=== PATIENT | female | born 1960 | race Caucasian/White ===

== ENCOUNTER 2024-11-11 10:46 | Inpatient (IN) | payer OTHER ==
[~2024-11-11] VITALS: Ht 160 cm; Wt 86.0 kg
[2024-11-11] VITALS (10 sets, daily range): BP systolic 115–140; BP diastolic 59–69; PULSE 69–77; RESP 18–21; TEMP 97.6–98.7; O2SAT 93–100
[~2024-11-11 10:46] MED LIST: ALBU108A5 INH; ALBUAER3 IN; ATOR20TA50 PO; AZIT-43 PO; FAMO20TA10 PO; FLUT250M2 INH; FLUT50SP EACHNOSTRI; MET25T PO; OME20T PO; PRED20TA2 PO
--- NOTE | 2024-11-11 11:47 | ED.PDOC ---
History of Present Illness HPI Comments 64-year-old female presents with a chief complaint of SOB and cough x "few weeks" with edema to her bilateral legs. Patient states that she was seen at [facility] x 2 weeks ago and was given IV Lasix for her SOB and edema. Patient reports that since being discharged, her SOB has been worsening, especially with exe rtion. Patient is sating at 80% on room air, was placed on 4L NC and is now at 93%. Patient denies any chest pain. Chief Complaint: Shortness of Breath Time Seen by MD: 11:26 Primary Care Provider: TRENA Reviewed Notes: Nurses Notes, Medications, Allergies Allergies: Coded Allergies: NO KNOWN ALLERGIES (Unverified , 07/07/19) Home Meds Active Scripts Albuterol Sulfate (VENTOLIN MDI) 90 Mcg Ih, 90 MCG IN Q4HP PRN for 30 Days, #1 INH 1 Refill 1 PUFF Prov:OG VALDEZ MD 07/10/19 Fluticasone-Salmeterol (Advair Diskus 250/50) 1 Puff Ih, 1 PUFF INH BID PRN for 30 Days, #1 INHALER 1 Refill Prov:OG VALDEZ MD 07/10/19 Prednisone (Prednisone) 20 Mg Tab, 20 MG PO DAILY for 7 Days, #7 TAB Prov:OG VALDEZ MD 07/10/19 Metoprolol Tartrate (Lopressor) 25 Mg Tb, 25 MG PO BID for 30 Days, #60 TAB Prov:OG VALDEZ MD 07/10/19 Famotidine (PEPCID TABLET) 20 Mg Tb, 40 MG PO DAILY for 30 Days, #60 TAB Prov:OG VALDEZ MD 07/10/19 Azithromycin (Azithromycin) 250 Mg Tab, 250 MG PO DAILY for 4 Days, #4 TAB Prov:OG VALDEZ MD 07/10/19 Atorvastatin Calcium (ATORVASTATIN CALCIUM) 20 Mg Tab, 20 MG PO HS for 30 Days, #30 TAB Prov:OG VALDEZ MD 07/10/19 Reported Medications Omeprazole (Omeprazole) 20 Mg Cap, 20 MG PO DAILY, CAP 07/07/19 Information Source: Patient Mode of Arrival: Ambulatory Severity: Moderate Timing: Months Duration: Since onset Prehospital treatment: None Past Medical History PAST MEDICAL HISTORY: COPD, GERD, High Lipids, HTN Surgical History: Cholecystectomy, Tonsillectomy, Tubal Ligation 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 Family History Family History: Family hx of DM, Family hx of heart lorelei Social History Smoker: Cigarettes Alcohol: Occasionally Drugs: Denies Drug Use Lives In: Home Constitutional: denies: chills, diaphoresis, fatigue, fever, malaise, sweats, weakness, others EENTM: denies: blurred vision, double vision, ear bleeding, ear discharge, ear drainage, ear pain, ear ringing, eye pain, eye redness, hearing loss, mouth pain, mouth swelling, nasal discharge, nose bleeding, nose congestion, nose pain, photophobia, tearing, throat pain, throat swelling, voice changes, others Respiratory: reports: cough, shortness of breath, SOB with excertion; denies: hemoptysis, orthopnea, SOB at rest, stridor, wheezing, others Cardiovascular: reports: edema; denies: chest pain, dizzy spells, diaphoresis, Dyspnea on exertion, irregular heart beat, left arm pain, lightheadedness, palpitations, PND, syncope, others Gastrointestinal: denies: abdomen distended, abdominal pain, blood streaked bowels, constipated, diarrhea, dysphagia, difficulty swallowing, hematemesis, melena, nausea, poor appetite, poor fluid intake, rectal bleeding, rectal pain, vomiting, others Genitourinary: denies: abnormal vagina bleeding, burning, dyspareunia, dysuria, flank pain, frequency, hematuria, incontinence, pain, , vagina discharge, urgency, others Neurological: denies: dizziness, fainting, headache, left sided numbness, left sided weakness, numbness, paresthesia, pre-existing deficit, right sided numbness, right sided weakness, seizure, speech problems, tingling, tremors, weakness, others Musculoskeletal: denies: back pain, gout, joint pain, joint swelling, muscle pain, muscle stiffness, neck pain, others Integumetry: denies: bruises, change in color, change in hair/nails, dryness, laceration, lesions, lumps, rash, wounds, others Allergic/Immunocompromised: denies: Difficulty Healing, Frequent Infections, Hives, Itching, others Hematologic/Lymphatic: denies: anemia, blood clots, easy bleeding, easy bruising, swollen glands, others Endocrine: denies: excessive hunger, excessive sweating, excessive thirst, excessive urination, flushing, intolerance to cold, intolerance to heat, unex plained weight gain, unexplained weight loss, others Psychiatric: denies: anxiety, bipolar disorder, depression, hopeless, panic disorder, schizophrenia, sleepless, suicidal, others All Other Systems: Reviewed and Negative Physical Exam General Appearance: Moderate Distress HEENT: Normal ENT Inspection, Pharynx Normal, TMs Normal Neck: Full Range of Motion, Non-Tender, Normal, Normal Inspection Respiratory: Chest Non-Tender, Decreased Breath Sounds, No Accessory Muscle Use, No Respiratory Distress Cardiovascular: No Edema, No JVD, No Murmur, No Gallop, Normal Peripheral Pulses, Regular Rate/Rhythm Breast Exam: Deferred Gastrointestinal: No Organomegaly, Non Tender, No Pulsatile Mass, Normal Bowel Sounds, Soft Genitalia: Deferred Pelvic: Deferred Rectal: Deferred Extremities: No calf tenderness, Normal capillary refill, Pedal edema Musculoskeletal : Apperance: Normal Neurologic: Alert, teletype technician II-XII nml as Tested, Motor Weakness, Normal Affect, Normal Mood, No Sensory Deficits Cerebellar Function: Normal Reflexes: Normal Skin: Dry, Normal Color, Warm Lymphatic: No Adenopathy Was a procedure done? Was a procedure done?: No EKG EKG : Pulse Rate (adult): 68 [place]: RAD Cardiac Rhythm: NSR Block: None Hypertrophy: None ST: Normal Differential Dx Considerations may include: CHF, PE, generalized weakness, pneumonia X-Ray, Labs, Meds, VS Vital Signs Date Time Temp Pulse Resp B/P (MAP) Pulse Ox O2 Delivery O2 Flow Rate FiO2 11/11/24 12:31 125/67 11/11/24 12:18 70 18 129/74 (92) 96 11/11/24 11:52 68 11/11/24 11:00 98.7 87 18 151/39 (76) 93 98.7 11/11/24 11:00 18 93 Nasal Cannula* 4 36 Lab Test 11/11/24 11:14 Range/Units White Blood Count 7.6 4.4-10.8 10^3/uL Red Blood Count 4.68 4.0-5.20 10^6/uL Hemoglobin 15.5 12.2-16.2 g/dL Hematocrit 44.9 36.0-46.0 % Mean Corpuscular Volume 96.0 80.0-100.0 fL Mean Corpuscular Hemoglobin 33.2 H 28.0-32.0 pg Mean Corpuscular Hemoglobin Concent 34.5 32.0-36.0 g/dL Red Cell Distribution Width 13.8 11.8-14.3 % Platelet Count 234 140-450 10^3/uL Mean Platelet Volume 8.0 6.9-10.8 fL Neutrophils (%) (Auto) 61.5 37.0-80.0 % Lymphocytes (%) (Auto) 18.1 10.0-50.0 % Monocytes (%) (Auto) 9.4 0.0-12.0 % Eosinophils (%) (Auto) 9.1 H 0.0-7.0 % Basophils (%) (Auto) 1.9 0.0-2.0 % Neutrophils # (Auto) 4.7 1.6-8.6 10 ^3/uL Lymphocytes # (Auto) 1.4 0.4-5.4 10 ^3/uL Monocytes # (Auto) 0.7 0-1.3 10 ^3/uL Eosinophils # (Auto) 0.7 0-0.8 10 ^3/uL Basophils # (Auto) 0.1 0-0.2 10 ^3/uL Nucleated Red Blood Cells 0.1 % Sodium Level 140 136-145 mmol/L Potassium Level 4.1 3.5-5.1 mmol/L Chloride Level 103 98-107 mmol/L Carbon Dioxide Level 29 20-31 mmol/L Anion Gap 8 5-15 Blood Urea Nitrogen 9 9-23 mg/dL Creatinine 0.78 0.550-1.02 mg/dL Glomerular Filtration Rate Calc 84 >90 mL/min BUN/Creatinine Ratio 11.5 10.0-20.0 Serum Glucose 167 H 74-106 mg/dL Calcium Level 10.1 8.7-10.4 mg/dL Troponin I High Sensitivity < 3 L </=34 ng/L B-Type Natriuretic Peptide 41.62 0-100 pg/mL Current Medications Medications (Trade) Dose Ordered Sig/Mayela Route Start Time Stop Time Status Last Admin Furosemide (Lasix Injection) 40 mg ONCE ONCE IV 11/11/24 11:45 11/11/24 11:46 DC 11/11/24 12:31 IV Hep-Lock was established The patient was given Lasix 40 mg IV push The chest x-ray shows: IMPRESSION: 1. No acute intrathoracic process. 2. Thoracic spondylosis and scoliosis. The BNP is within normal limits The troponin level is negative The patient is hyperglycemic at 167 The CBC is within normal range. The patient is being admitted at this time The patient will be continued on 4 L nasal cannula of oxygen. A cardiology consult will be obtained. Images Reviewed?: Images reviewed and evaluated by me Time of 1ST Reevaluation: 11:56 Reevaluation 1ST: Improved Patient Education/Counseling: Diagnosis, Treatment, Prognosis Family Education/Counseling: No Family Present Departure 1 Departure Time of Disposition: 12:36 Impression: Primary Impression: Acute respiratory failure Qualified Codes: J96.01 - Acute respiratory failure with hypoxia Additional Impressions: Pedal edema Diastolic heart failure Qualified Codes: I50.33 - Acute on chronic diastolic (congestive) heart failure Disposition: ADMITTED INPATIENT Admit to: [facility] Condition: Fair Critical Care Note Critical Care Time?: Yes (45 min-critical care time only) Stability Stability form required: Yes Unstable for transfer: Telemetry monitoring (Telemetry monitoring required), ED Physician Assesment (Clinical assesment) Heart Score Heart Score: Heart Score Response (Comments) Value History N/A 0 EKG N/A 0 Age N/A 0 Risk Factors N/A 0 Troponin N/A 0 Total 0 I personally scribed for CARLOS SMITH MD ([email or web address]) on 11/11/24 at 11:47. Electronically submitted by Judah Phillips ([email or web address]). I personally scribed for CARLSO SMITH MD ([email or web address]) on 11/11/24 at 11:52. Electronically submitted by Judah Phillips ([email or web address]). CARLOS SMITH MD Nov 11, 2024 11:47
[2024-11-11 11:57] LABS: Basophils # (auto) 0.1 10 ^3/uL (0-0.2); Basophils % (auto) 1.9 % (0.0-2.0); Eosinophils # (auto) 0.7 10 ^3/uL (0-0.8); Eosinophils % (auto) 9.1 % (0.0-7.0); Hematocrit 44.9 % (36.0-46.0); Hemoglobin 15.5 g/dL (12.2-16.2); Lymphocytes # (auto) 1.4 10 ^3/uL (0.4-5.4); Lymphocytes % (auto) 18.1 % (10.0-50.0); Mean Corpuscular Hemoglobin 33.2 pg (28.0-32.0); Mean Corpuscular Hgb Conc. 34.5 g/dL (32.0-36.0); Monocytes # (auto) 0.7 10 ^3/uL (0-1.3); Monocytes % (auto) 9.4 % (0.0-12.0); Neutrophils # (auto) 4.7 10 ^3/uL (1.6-8.6); Neutrophils % (auto) 61.5 % (37.0-80.0); Nucleated Red Blood Cells % 0.1 %; Platelet Count (auto) 234 10^3/uL (140-450); Red Blood Cells 4.68 10^6/uL (4.0-5.20); Red Cell Distribution Width 13.8 % (11.8-14.3); White Blood Cell 7.6 10^3/uL (4.4-10.8)
[2024-11-11 12:04] LABS: Chloride 103 mmol/L (98-107); Potassium 4.1 mmol/L (3.5-5.1); Sodium 140 mmol/L (136-145)
[2024-11-11 12:05] LABS: Anion Gap 8 (5-15); Calcium 10.1 mg/dL (8.7-10.4); Carbon Dioxide 29 mmol/L (20-31)
[2024-11-11 12:10] LABS: BUN/Creatinine Ratio 11.5 (10.0-20.0)
[2024-11-11 12:13] LABS: Blood Urea Nitrogen 9 mg/dL (9-23); Glucose 167 mg/dL (74-106)
--- NOTE | 2024-11-11 12:19 | ECG ---
[facility] Test Date: 2024-11-11 Test Time: 11:10:09 Pat Name: BRENDAN SERNA Department: ER Room: 0298T Gender: F Gore Stitcher: GP : 1960 Requested By: CARLOS SMITH Order Number: [id number] Reading MD: Dequan Donaldson Measurements Intervals [place] Rate: 68 P: 50 MT: 165 QRS: 86 QRSD: 89 T: 77 QT: 398 QTc: 424 Interpretive Statements Sinus rhythm Borderline right axis deviation Nonspecific T abnrm, anterolateral leads Baseline wander in lead(s) III Electronically Signed On 11-12-2024 14:58:43 PDT by Dequan Donaldson Please click the below link to view image of tracing.
--- NOTE | 2024-11-11 12:26 | DVH ---
EXAM: XY CHEST TWO VIEWS ROUTINE HISTORY: sob COMPARISON: None TECHNIQUE: Frontal and lateral views of the chest were performed. FINDINGS: No pneumothorax, pulmonary edema, pleural effusions, or consolidative infiltrates. The heart is not enlarged. The aortic arch is calcific. No fractures are identified about the bony thorax. There is mo derate thoracic degenerative disc disease. There is mild thoracic levoscoliosis. IMPRESSION: 1. No acute intrathoracic process. 2. Thoracic spondylosis and scoliosis.
[2024-11-11] MEDS: FUROSEMIDE 40 MG/4 ML VIAL IV ONE (12:31)
[2024-11-11] MEDS ORDERED: MORPHINE SULFATE 4 MG/ML SYR/VIAL IV PRN ×2 (13:30→15:15)
[2024-11-11] MEDS ORDERED: MORPHINE SULFATE INJ 2 MG/ml SYRG IV PRN (13:30)
[2024-11-11] MEDS ORDERED: NITROGLYCERIN 0.4 MG SL TAB SL PRN (13:30)
[2024-11-11 13:43] LABS: Urine Bacteria None Seen /hpf (None Seen)
[2024-11-11 13:52] LABS: Urine Blood Negative /uL (Negative); Urine Clarity Clear (Clear); Urine Color Colorless (Yellow); Urine Protein, UAD Negative (Negative); Urine Specific Gravity 1.006 (1.001-1.035); Urine Squamous Epithelial Cell FEW /hpf (<5); Urine Urobilinogen Normal (Negative); Urine WBC 2 /HPF (0-5)
[2024-11-11] MEDS: IPRATROPIUM BROM 0.5 MG/2.5ML INH SOL NEB PRN (15:06)
[2024-11-11] MEDS: ALBUTEROL SULF 2.5 MG/0.5ML(0.5%) NEB SOLN NEB PRN (15:06)
--- NOTE | 2024-11-11 16:20 | DVHINCON2 ---
Date of service: Nov 11, 2024 Referring Physician Carolin Gomez NP Reason for Consultation Acute hypoxic respiratory failure and COPD exacerbation History of Present Illness A 64-year-old woman with past medical history of COPD, hypertension, hyperlipidemia and GERD who presents to ED today with a chief complaint of shortness of breath and cough x "few weeks" with bilateral leg edema. She reports being seen at [facility] 2 weeks ago and was given IV Lasix for her SOB and edema. Patient reports that since being discharged, shortness of breath has been worsening, especially with exertion. No chest pain or other acute complaints. Patient was noted to have sats at 80% on room air, was placed on 4L NC and improved to 93%. Patient was admitted for further care, and pulmonary consultat ion is requested for evaluation and management of acute hypoxic respiratory failure and COPD exacerbation. Review of Systems: 14-point review of systems negative unless otherwise noted above. Past Medical History: COPD, hypertension, hyperlipidemia, GERD, ectopic . Past Surgical History: Cholecystectomy, Tonsillectomy, Tubal Ligation Medications: Reviewed. Allergies: No known drug allergies. Family History: DM and heart disease. Social History: Smoker. Smokes cigarettes Occasional alcohol use. No illicit drug use. Allergies: Coded Allergies: NO KNOWN ALLERGIES (Unverified , 07/07/19) Home Meds Active Scripts Methylprednisolone (Medrol Dosepak) 4 Mg [place], 4 MG PO UD, #21 TAB UAD Prov:KISHAN LINDSEY 11/14/24 Furosemide (Lasix) 20 Mg Tb, 1 TAB PO DAILY for 30 Days, #30 TAB 1 Refill Prov:KISHAN LINDSEY 11/14/24 Levofloxacin Hemihydrate (LEVOFLOXACIN) 500 Mg Tab, 1 TAB PO DAILY, #7 TAB Prov:KISHAN LINDSEY 11/14/24 Albuterol Sulfate (Albuterol Sulfate Hfa) 108 Mcg/Act Aer, 2 PUFF INH Q4-6HR PRN for 16 Days, #8.5 AER Prov:KISHAN LINDSEY 11/14/24 Reported Medications Fluticasone Propionate (Nasal) (Fluticasone Propionate) 50 Mcg/Act Spr, 1 SPRAY EACHNOSTRI DAILY for 30 Days, #16 11/12/24 Aspirin (Aspir-81) 81 Mg Tab, 1 TAB PO DAILY, #30 TAB 5 Refills 11/11/24 Atorvastatin Calcium (ATORVASTATIN CALCIUM) 40 Mg Tab, 1 TAB PO DAILY, #30 TAB 5 Refills 11/11/24 Pantoprazole Sodium Sesquihydr (Protonix) 40 Mg Tab, 40 MG PO DAILY, #30 TAB 11/11/24 Metoprolol Succinate (Metoprolol Succinate Er) 25 Mg Tab, 25 MG PO DAILY for 30 Days, MG 11/11/24 Amlodipine Besylate (Amlodipine Besylate) 5 Mg Tab, 10 MG PO DAILY for 30 Days, MG 11/11/24 Losartan Potassium (Losartan Potassium) 50 Mg Tab, 1 TAB PO DAILY, #30 TAB 5 Refills 11/11/24 Discontinued Reported Medications Omeprazole (Omeprazole) 20 Mg Cap, 20 MG PO DAILY, CAP 07/07/19 Current Medications Current Medications Medications (Trade) Dose Ordered Sig/Mayela Route PRN Reason Start Time Stop Time Status Last Admin Acetaminophen/ Hydrocodone Bitart ([place] 5/325MG Tab) 1 tab Q4HP PRN PO MODERATE PAIN (4-6 PAIN SCALE) 11/11/24 13:30 Enoxaparin Sodium (Lovenox) 40 mg DAILY SC 11/12/24 10:00 Acetaminophen (Tylenol Tablet) 650 mg Q6HP PRN PO PAIN SCALE 1-3 OR TEMP>100.4 11/11/24 13:30 Morphine Sulfate 2 mg Q4HPRN PRN IV SEVERE PAIN (7-10 PAIN SCALE) 11/11/24 13:30 Nitroglycerin (Ntrostat Sublingual) 0.4 mg Q5MINP PRN SL FOR CHEST PAIN 11/11/24 13:30 Morphine Sulfate 2 mg Q30M PRN IV FOR CHEST PAIN 11/11/24 13:30 Atorvastatin Calcium (Lipitor) 20 mg HS PO 11/11/24 22:00 Metoprolol Tartrate (Lopressor Tablet) 25 mg BID PO 11/11/24 22:00 Albuterol (Ventolin Medneb) 2.5 mg Q6HP PRN NEB SHORTNESS OF BREATH 11/11/24 13:30 11/11/24 15:06 Ipratropium [place] (Atrovent Medneb) 0.5 mg Q6HP PRN NEB SHORTNESS OF BREATH 11/11/24 13:30 11/11/24 15:06 Furosemide (Lasix Injection) 40 mg BID IV 11/11/24 22:00 11/11/24 13:30 DC Morphine Sulfate 2 mg Q4HPRN PRN IV SEVERE PAIN (7-10 PAIN SCALE) 11/11/24 15:15 Vital Signs Vital Signs Date Time Temp Pulse Resp B/P (MAP) Pulse Ox O2 Delivery O2 Flow Rate FiO2 11/11/24 15:20 98.1 74 16 103/64 (77) 95 98.1 11/11/24 15:20 2.0 28 11/11/24 15:06 Nasal Cannula Physical Exam Gen.: Patient lying in bed in no apparent distress. On supplemental oxygen. Head: Normocephalic, atraumatic. Eyes: EOMI/PERRLA. Ears: Normal hearing. Normal anatomy. Neck/trachea: Trachea midline, supple. Nose: Normal external anatomy. Mouth: Moist mucous membranes. Chest: Decreased air entry bilaterally. Wheezing present. No rhonchi. Cardiovascular: Positive S1, positive S2. Regular rate and rhythm. Abdomen: Positive bowel sounds in all 4 quadrants. Soft, non-tender, non- distended. : Deferred. Rectal: Deferred. Skin: Warm, dry. Intact. Extremities: 2+ radial pulses bilaterally. No lower extremity edema. Neuro: Awake, alert, oriented x3. No gross motor or sensory deficits. Cranial n erves II through XII intact. Gait not assessed. Labs/Diagnostic Data Labs Test 11/11/24 11:42 11/11/24 11:14 Range/Units Urine Color Colorless Yellow Urine Clarity Clear Clear Urine pH 7.0 5.0-9.0 Urine Specific [place] 1.006 1.001-1.035 Urine Protein Negative Negative Urine Ketones Negative Negative Urine Blood Negative Negative /uL Urine Nitrite Negative Negative Urine Bilirubin Negative Negative Urine Urobilinogen Normal Negative mg/dL Urine Leukocyte Esterase Negative Negative /uL Urine RBC <1 0 - 4 /hpf Urine Microscopic WBC 2 0-5 /HPF Urine Squamous Epithelial Cells Few <5 /hpf Urine Bacteria None seen None Seen /hpf Urine Glucose Normal Normal mg/dL White Blood Count 7.6 4.4-10.8 10^3/uL Red Blood Count 4.68 4.0-5.20 10^6/uL Hemoglobin 15.5 12.2-16.2 g/dL Hematocrit 44.9 36.0-46.0 % Mean Corpuscular Volume 96.0 80.0-100.0 fL Mean Corpuscular Hemoglobin 33.2 H 28.0-32.0 pg Mean Corpuscular Hemoglobin Concent 34.5 32.0-36.0 g/dL Red Cell Distribution Width 13.8 11.8-14.3 % Platelet Count 234 140-450 10^3/uL Mean Platelet Volume 8.0 6.9-10.8 fL Neutrophils (%) (Auto) 61.5 37.0-80.0 % Lymphocytes (%) (Auto) 18.1 10.0-50.0 % Monocytes (%) (Auto) 9.4 0.0-12.0 % Eosinophils (%) (Auto) 9.1 H 0.0-7.0 % Basophils (%) (Auto) 1.9 0.0-2.0 % Neutrophils # (Auto) 4.7 1.6-8.6 10 ^3/uL Lymphocytes # (Auto) 1.4 0.4-5.4 10 ^3/uL Monocytes # (Auto) 0.7 0-1.3 10 ^3/uL Eosinophils # (Auto) 0.7 0-0.8 10 ^3/uL Basophils # (Auto) 0.1 0-0.2 10 ^3/uL Nucleated Red Blood Cells 0.1 % Sodium Level 140 136-145 mmol/L Potassium Level 4.1 3.5-5.1 mmol/L Chloride Level 103 98-107 mmol/L Carbon Dioxide Level 29 20-31 mmol/L Anion Gap 8 5-15 Blood Urea Nitrogen 9 9-23 mg/dL Creatinine 0.78 0.550-1.02 mg/dL Glomerular Filtration Rate Calc 84 >90 mL/min BUN/Creatinine Ratio 11.5 10.0-20.0 Serum Glucose 167 H 74-106 mg/dL Calcium Level 10.1 8.7-10.4 mg/dL Troponin I High Sensitivity < 3 L </=34 ng/L B-Type Natriuretic Peptide 41.62 0-100 pg/mL Assessment Impression: Acute hypoxic respiratory failure Acute exacerbation of COPD COPD/Emphysema, mild Smoker/Nicotine dependence Obesity BMI 30.6 Acute on chronic diastolic heart failure Thoracic Scoliosis/Spondylosis Plan: Supplemental oxygen Keep o2 sat above 92% Bronchodilators Start steroids - prednisone Obtain Echo Cardiology recommendations appreciated Diurese to euvolemia Monitor ins/outs Monitor renal function Monitor electrolytes Supplement as necessary Smoking cessation discussed for greater than 10 minutes. Obesity complicates all care. Diet and lifestyle modifications for weight reduction. DVT prophylaxis-Lovenox Prognosis: Poor given patient's multiple co-morbidities. Rest of plan per hospitalist and other consultants. Thank you, ALEJANDRA Gomez, for allowing me to participate in this patient's care. Further recommendations will depend on the patient's clinical course. Please do not hesitate to contact me if you have any questions or concerns. This medical document was created using an electronic medical record system with [employer] dictation system. Although these documentations are being carefully reviewed, there may still be some phonetic and typographical changes. The errors are purely typographical, due to imperfection on the software program, and do not reflect any compromise in the patient's medical care. Plan discussed with: Patient, Other (ALEJANDRA Gomez/) GERALDO CLEMONS MD Nov 11, 2024 16:20
[2024-11-11 16:32] LABS: Base Excess -0.1 mmol/L (-2.0-3.0)
--- NOTE | 2024-11-11 18:13 | DVHINCON2 ---
Date of service: Nov 11, 2024 History of Present Illness HPI Patient is a 64-year-old female who presented with few weeks of shortness of breaths/cough and leg edema. She also complained of dyspnea on exertion. She was at [facility] few weeks back. Mentions she did not improve and decided to come to this hospital. Prior to these episodes she denies any previous cardiac problem. In our emergency room, oxygen saturation was found to be low at 80% on room air. It is of note that the patient does have chronic COPD and have been smoking for long-term. There has been question about heart failure and cardiology is involved. Patient herself denies any previous knowledge of heart problem. Denies previously being diagnosed with heart failure. Denies chest pains. Does have limited exertional capacity for long time. Home Meds Active Scripts Albuterol Sulfate (VENTOLIN MDI) 90 Mcg Ih, 90 MCG IN Q4HP PRN for 30 Days, #1 INH 1 Refill 1 PUFF Prov:OG VALDEZ MD 07/10/19 Fluticasone-Salmeterol (Advair Diskus 250/50) 1 Puff Ih, 1 PUFF INH BID PRN for 30 Days, #1 INHALER 1 Refill Prov:OG VALDEZ MD 07/10/19 Prednisone (Prednisone) 20 Mg Tab, 20 MG PO DAILY for 7 Days, #7 TAB Prov:OG VALDEZ MD 07/10/19 Metoprolol Tartrate (Lopressor) 25 Mg Tb, 25 MG PO BID for 30 Days, #60 TAB Prov:OG VALDEZ MD 07/10/19 Famotidine (PEPCID TABLET) 20 Mg Tb, 40 MG PO DAILY for 30 Days, #60 TAB Prov:OG VALDEZ MD 07/10/19 Azithromycin (Azithromycin) 250 Mg Tab, 250 MG PO DAILY for 4 Days, #4 TAB Prov:OG VALDEZ MD 07/10/19 Atorvastatin Calcium (ATORVASTATIN CALCIUM) 20 Mg Tab, 20 MG PO HS for 30 Days, #30 TAB Prov:OG VALDEZ MD 07/10/19 Reported Medications Omeprazole (Omeprazole) 20 Mg Cap, 20 MG PO DAILY, CAP 07/07/19 Past Medical History Others Past medical history includes COPD, hypertension, hyperlipidemia, morbid obesity, history of prediabetes, active cigarette smoking, daily use of alcohol, pulmonary nodule, status post cholecystectomy/tonsillectomy/tubal ligation and old history of ectopic pregnancies. Smoker: Positive Alocohol: Moderate Drugs: None Review of Systems Constitutional: No symptom reported Ears, Nose, & Throat: No symptom reported Pulmonary/Respiratory: Dyspnea, Cough All Other Systems Fourteen point review of system was performed. Relevant findings as per above and as per HPI. Otherwise negative. H&P Exam Vital Signs Vital Signs Date Time Temp Pulse Resp B/P (MAP) Pulse Ox O2 Delivery O2 Flow Rate FiO2 11/11/24 16:00 74 11/11/24 15:20 98.1 16 103/64 (77) 95 98.1 11/11/24 15:20 2.0 28 11/11/24 15:06 Nasal Cannula General Appeara: Well developed Head Exam: Normal inspection Eye Exam: bilateral eye PERRL Mouth: Normal Inspection Pulmonary/Respiratory: Rhonci Cardiovascular/Chest: Regular rate, Systolic murmur Peripheral Pulses: 2+ carotid (R), 2+ carotid (L), 2+ femoral (R), 2+ femoral (L), 2+ dorsalis pedis (R), 2+ dorsalis pedis (L), 2+ Radial (R), 2+ Radial (L) Abdominal Exam: Normal bowel sounds, Soft Neuro/Mental St: Alert, Oriented Appearance: Appropriate appearance Eye contact/ Speech: Cooperative Labs/Xrays Labs Test 11/11/24 16:26 11/11/24 11:42 11/11/24 11:14 Range/Units Blood Gas Specimen Type Arterial Blood Gas Sample Site Left radial Blood Gas Patient Temperature 37.0 Arterial Blood Date Drawn [id number] Arterial Blood pH 7.424 7.350-7.450 Arterial Blood Partial Pressure CO2 37.5 32.0-45.0 mmHg Arterial Blood Partial Pressure O2 64.6 L 83.0-108.0 mmHg Arterial Blood HCO3 24.0 21.0-28.0 mmol/L Arterial Blood Oxygen Saturation 92.4 L 94.0-98.0 % Arterial Blood Base Excess -0.1 -2.0-3.0 mmol/L Arterial Blood Oxyhemoglobin 90.6 L 94.0-98.0 % Arterial Blood Carboxyhemoglobin 1.4 0.5-1.5 % Arterial Blood Methemoglobin 0.5 0.0-1.5 % Harish Test Yes Blood Gas Total Hemoglobin 15.10 12.0-16.0 g/dL Blood Gas Liter Flow 2.00 Blood Gas Modality Nasal cannula FiO2 % 28.0 Urine Color Colorless Yellow Urine Clarity Clear Clear Urine pH 7.0 5.0-9.0 Urine Specific [place] 1.006 1.001-1.035 Urine Protein Negative Negative Urine Ketones Negative Negative Urine Blood Negative Negative /uL Urine Nitrite Negative Negative Urine Bilirubin Negative Negative Urine Urobilinogen Normal Negative mg/dL Urine Leukocyte Esterase Negative Negative /uL Urine RBC <1 0 - 4 /hpf Urine Microscopic WBC 2 0-5 /HPF Urine Squamous Epithelial Cells Few <5 /hpf Urine Bacteria None seen None Seen /hpf Urine Glucose Normal Normal mg/dL White Blood Count 7.6 4.4-10.8 10^3/uL Red Blood Count 4.68 4.0-5.20 10^6/uL Hemoglobin 15.5 12.2-16.2 g/dL Hematocrit 44.9 36.0-46.0 % Mean Corpuscular Volume 96.0 80.0-100.0 fL Mean Corpuscular Hemoglobin 33.2 H 28.0-32.0 pg Mean Corpuscular Hemoglobin Concent 34.5 32.0-36.0 g/dL Red Cell Distribution Width 13.8 11.8-14.3 % Platelet Count 234 140-450 10^3/uL Mean Platelet Volume 8.0 6.9-10.8 fL Neutrophils (%) (Auto) 61.5 37.0-80.0 % Lymphocytes (%) (Auto) 18.1 10.0-50.0 % Monocytes (%) (Auto) 9.4 0.0-12.0 % Eosinophils (%) (Auto) 9.1 H 0.0-7.0 % Basophils (%) (Auto) 1.9 0.0-2.0 % Neutrophils # (Auto) 4.7 1.6-8.6 10 ^3/uL Lymphocytes # (Auto) 1.4 0.4-5.4 10 ^3/uL Monocytes # (Auto) 0.7 0-1.3 10 ^3/uL Eosinophils # (Auto) 0.7 0-0.8 10 ^3/uL Basophils # (Auto) 0.1 0-0.2 10 ^3/uL Nucleated Red Blood Cells 0.1 % Sodium Level 140 136-145 mmol/L Potassium Level 4.1 3.5-5.1 mmol/L Chloride Level 103 98-107 mmol/L Carbon Dioxide Level 29 20-31 mmol/L Anion Gap 8 5-15 Blood Urea Nitrogen 9 9-23 mg/dL Creatinine 0.78 0.550-1.02 mg/dL Glomerular Filtration Rate Calc 84 >90 mL/min BUN/Creatinine Ratio 11.5 10.0-20.0 Serum Glucose 167 H 74-106 mg/dL Calcium Level 10.1 8.7-10.4 mg/dL Troponin I High Sensitivity < 3 L </=34 ng/L B-Type Natriuretic Peptide 41.62 0-100 pg/mL Assessment/Plan Plan Patient is a 64-year-old female who presented with few weeks of shortness of breaths/cough and leg edema. She also complained of dyspnea on exertion. She was at [facility] few weeks back. Mentions she did not improve and decided to come to this hospital. Prior to these episodes she denies any previous cardiac problem. In our emergency room, oxygen saturation was found to be low at 80% on room air. It is of note that the patient does have chronic COPD and have been smoking for long-term. There has been question about heart failure and cardiology is involved. Patient herself denies any previous knowledge of heart problem. Denies previously being diagnosed with heart failure. Denies chest pains. Does have limited exertional capacity for long time. Not in acute distress, lying flat in bed. No JVD. Mucosa is pink and wet. There is no carotid bruit. No goiter. Not using accessory muscles of breathing. Scattered rhonchi in the lungs is heard. Cardiac: Regular, no thrill/gallop. Abdomen is soft. There was no gross mass/hepatomegaly. Bowel sound is positive. Extremities reveal 2+ edema bilaterally. Dorsalis pedis is 2+ Past medical history includes COPD, hypertension, hyperlipidemia, morbid obesity, history of prediabetes, active cigarette smoking, daily use of alcohol, pulmonary nodule, status post cholecystectomy/tonsillectomy/tubal ligation and old history of ectopic pregnancies. Echocardiogram of June 2019 had revealed concentric left ventricular hypertrophy, normal valves, ejection fraction of 60% and right ventricular systolic pressure of 30 mm Hg Echocardiogram of October 27, 2024 (performed in [facility]) reported ejection fraction of 60-65%, mild increase in left ventricular th ickness, stage I diastolic dysfunction, mild MR/TR/PI Nuclear stress test of October 28, 2024 (performed in [facility]) reported no ischemia/normal wall motion and ejection fraction of 64% Creatinine: 0.78 Potassium: 4.1 Troponin (high sensitive): < 3 BNP: 41.62 Chest x-ray reported: IMPRESSION: 1. No acute intrathoracic process. 2. Thoracic spondylosis and scoliosis. Patient is a 64-year-old female who presented with shortness of breaths/cough/leg edema and dyspnea on exertion. Presentation questions acute heart failure versus COPD exacerbation. Patient denies previously reported heart failure. Does have acute respiratory failure. There is question about chronic respiratory failure because of long-term smoking. Acute respiratory failure COPD exacerbation Questionable acute on chronic diastolic heart failure Tobacco dependence Morbid obesity Alcohol use/abuse History of pulmonary nodules Cardiac suggestion for management: Manage on telemetry Request for EKG Gentle diuresis can be justified Follow-up electrolytes and kidney function tests and correct abnormalities Request for repeat Echocardiogram Serial troponin Oxygen supplementation Request for urinalysis Venous Doppler of lower extremities Consider D-dimer. If D-dimer is abnormal request for CT angio of the chest. If D-dimer is found to be normal, consider CT of the chest without contrast. Suggestion is Pulmonary consultation Consider ESR/CRP Further evaluation and management depends on the above and clinical course Thank you for consultation A total of 75 minutes was spent reviewing the patient record, examining the patient, making a diagnostic and therapeutic plan, discussing this plan with medical personnel, following up on diagnostic studies and following the patient for clinical stability excluding any and all procedures. At least 50% of this time was spent in direct, [id number] contact. Thank you for allowing me to participate in this patient's care. Further recommendations will depend on patient's clinical course. Please do not hesitate to contact me if you have any questions or concerns. This medical document was created using electronic medical record system with [employer] dictation system. Although this document has been carefully reviewed, there may still be some phonetic and typographical errors. These areas are purely typographical due to the imperfection of the software programs, and do not reflect any compromise in the patient's medical care Plan discussed with: Patient, Other (nurse) SHEILA SANTOS MD Nov 11, 2024 18:13
[2024-11-11] MEDS ORDERED: METO25TA93 PO (18:19)
[2024-11-11] MEDS ORDERED: AMLO1TAB22 PO (18:19)
[2024-11-11] MEDS ORDERED: LOSA-534 PO (18:19)
[2024-11-11] MEDS ORDERED: ASPI1TAB20 PO (18:19)
[2024-11-11] MEDS ORDERED: ATOR40TA52 PO (18:19)
[2024-11-11] MEDS ORDERED: PANT40TA2 PO (18:19)
[2024-11-11 19:10] LABS: Erythrocyte Sedimentation Rate 9 mm/hr (0-20)
[2024-11-11] MEDS: FUROSEMIDE 20 MG/2 ML VIAL IV SCH (19:58)
[2024-11-11] MEDS: predniSONE 20 MG TAB PO ONE (19:59)
[2024-11-11] MEDS: ATORVASTATIN 20 MG TAB PO SCH (20:57)
[2024-11-11] MEDS: METOPROLOL TARTRATE 25 MG TAB PO SCH (20:58)
--- NOTE | 2024-11-11 20:58 | DVH ---
CLINICAL HISTORY: leg swelling TECHNIQUE: Color and duplex doppler imaging of the bilateral lower extremity veins was performed. Ves eliza compression if possible was also performed. WID: COMPARISON: None FINDINGS: Right Lower Extremity: Right common femoral vein: Normal compressibility and flow. Right femoral vein: Normal compressibility and flow. Right popliteal vein: Normal compressibility and flow. Proximal calf veins are normally compressible. Left Lower Extremity: Left common femoral vein: Normal compressibility and flow. Left femoral vein: Normal compressibility and flow. Left popliteal vein: Normal compressibility and flow. Proximal calf veins are normally compressible. IMPRESSION: NO SONOGRAPHIC EVIDENCE FOR DEEP VENOUS THROMBOSIS IN THE BILATERAL LOWER EXTREMITY VEINS.
[2024-11-11] MEDS: HYDROcodone-ACET 5/325MG TAB PO PRN (21:28)
[2024-11-11] MEDS ORDERED: FUROSEMIDE 40 MG/4 ML VIAL IV SCH (22:00)
[2024-11-12] VITALS (11 sets, daily range): BP systolic 100–145; BP diastolic 64–77; PULSE 69–95; RESP 16–18; TEMP 97.8–98.1; O2SAT 89–98
[2024-11-12] MEDS: ACETAMINOPHEN 325 MG TAB PO PRN (00:53)
[2024-11-12 06:24] LABS: Basophils # (auto) 0.1 10 ^3/uL (0-0.2); Basophils % (auto) 0.7 % (0.0-2.0); Eosinophils # (auto) 0.1 10 ^3/uL (0-0.8); Eosinophils % (auto) 0.6 % (0.0-7.0); Hematocrit 43.2 % (36.0-46.0); Hemoglobin 14.7 g/dL (12.2-16.2); Lymphocytes # (auto) 0.6 10 ^3/uL (0.4-5.4); Lymphocytes % (auto) 6.4 % (10.0-50.0); Mean Corpuscular Hemoglobin 32.9 pg (28.0-32.0); Mean Corpuscular Hgb Conc. 34.1 g/dL (32.0-36.0); Mean Corpuscular Volume 96.5 fL (80.0-100.0); Monocytes # (auto) 0.4 10 ^3/uL (0-1.3); Monocytes % (auto) 4.2 % (0.0-12.0); Neutrophils # (auto) 7.9 10 ^3/uL (1.6-8.6); Neutrophils % (auto) 88.1 % (37.0-80.0); Platelet Count (auto) 208 10^3/uL (140-450); Red Blood Cells 4.48 10^6/uL (4.0-5.20); Red Cell Distribution Width 13.8 % (11.8-14.3)
[2024-11-12 06:40] LABS: Alanine Aminotransferase 14 U/L (7-40); Albumin 4.4 g/dL (3.2-4.8); Alkaline Phosphatase 85 U/L (46-116); Anion Gap 10 (5-15); Blood Urea Nitrogen 12 mg/dL (9-23); Calcium 9.8 mg/dL (8.7-10.4); Carbon Dioxide 28 mmol/L (20-31); Chloride 100 mmol/L (98-107); Potassium 4.3 mmol/L (3.5-5.1); Sodium 138 mmol/L (136-145); Total Protein 6.7 g/dL (5.7-8.2)
[2024-11-12 06:42] LABS: Aspartate Aminotransferase 11 U/L (13-40); Bilirubin, Total 1.4 mg/dL (0.2-1.0); Glucose 153 mg/dL (74-106)
--- NOTE | 2024-11-12 06:53 | DVHPN2 ---
Progress Note - Dictate Date Seen: Nov 12, 2024 Medical Necessity Reason Pt with a Central, PICC or Fol: No vital signs Vital Sign Date Time Temp Pulse Resp B/P (MAP) Pulse Ox O2 Delivery O2 Flow Rate FiO2 11/12/24 05:59 127/77 11/12/24 01:00 97.8 73 18 94 97.8 11/11/24 20:00 Nasal Cannula* 3 32 Total Intake and Output 11/11/24 11/11/24 11/12/24 15:00 23:00 07:00 Intake Total 800 ml Balance 800 ml medications Current Medications Medications Dose Ordered Sig/Mayela Route Start Time Stop Time Status Last Admin Dose Admin Acetaminophen/ Hydrocodone Bitart 1 tab Q4HP PRN PO 11/11/24 13:30 11/11/24 21:28 1 TAB Enoxaparin Sodium 40 mg DAILY SC 11/12/24 10:00 Acetaminophen 650 mg Q6HP PRN PO 11/11/24 13:30 11/12/24 00:53 650 MG Morphine Sulfate 2 mg Q4HPRN PRN IV 11/11/24 13:30 Nitroglycerin 0.4 mg Q5MINP PRN SL 11/11/24 13:30 Morphine Sulfate 2 mg Q30M PRN IV 11/11/24 13:30 Atorvastatin Calcium 20 mg HS PO 11/11/24 22:00 11/11/24 20:57 20 MG Metoprolol Tartrate 25 mg BID PO 11/11/24 22:00 11/11/24 20:58 25 MG Albuterol 2.5 mg Q6HP PRN NEB 11/11/24 13:30 11/11/24 19:48 2.5 MG Ipratropium [place] 0.5 mg Q6HP PRN NEB 11/11/24 13:30 11/11/24 19:48 0.5 MG Morphine Sulfate 2 mg Q4HPRN PRN IV 11/11/24 15:15 Furosemide 20 mg BIDD IV 11/11/24 18:00 11/12/24 05:59 20 MG Prednisone 20 mg BID PO 11/12/24 10:00 laboratory and microbiology Laboratory Tests 11/12/24 05:54 Test 11/12/24 05:54 Range/Units Serum Glucose 153 H 74-106 mg/dL Assessment/Plan Patient is a 64-year-old female who presented with few weeks of shortness of breaths/cough and leg edema. She also complained of dyspnea on exertion. She was at [facility] few weeks back. Mentions she did not improve and decided to come to this hospital. Prior to these episodes she denies any previous cardiac problem. In our emergency room, oxygen saturation was found to be low at 80% on room air. It is of note that the patient does have chronic COPD and have been smoking for long-term. There has been question about heart failure and cardiology is involved. Patient herself denies any previous knowledge of heart problem. Denies previously being diagnosed with heart failure. Denies chest pains. Does have limited exertional capacity for long time. Not in acute distress, lying flat in bed. No JVD. Mucosa is pink and wet. There is no carotid bruit. No goiter. Not using accessory muscles of breathing. Scattered rhonchi in the lungs is heard. Cardiac: Regular, no thrill/gallop. Abdomen is soft. There was no gross mass/hepatomegaly. Bowel sound is positive. Extremities reveal 2+ edema bilaterally. Dorsalis pedis is 2+ Past medical history includes COPD, hypertension, hyperlipidemia, morbid obesity, history of prediabetes, active cigarette smoking, daily use of alcohol, pulmonary nodule, status post cholecystectomy/tonsillectomy/tubal ligation and old history of ectopic pregnancies. Echocardiogram of June 2019 had revealed concentric left ventricular hypertrophy, normal valves, ejection fraction of 60% and right ventricular systolic pressure of 30 mm Hg Echocardiogram of October 27, 2024 (performed in [facility]) reported ejection fraction of 60-65%, mild increase in left ventricular thickness, stage I diastolic dysfunction, mild MR/TR/PI Nuclear stress test of October 28, 2024 (performed in [facility]) reported no ischemia/normal wall motion and ejection fraction of 64% Creatinine: 0.78 - 0.75 Potassium: 4.1 - 4.3 Troponin (high sensitive): < 3 - 3 - 3 BNP: 41.62 D-dimer: 0.33 (wnl) CRP: 0.27 ESR: 9 U/A: non-revealing Chest x-ray reported: IMPRESSION: 1. No acute intrathoracic process. 2. Thoracic spondylosis and scoliosis. Venous duplex of lower ext: IMPRESSION: NO SONOGRAPHIC EVIDENCE FOR DEEP VENOUS THROMBOSIS IN THE BILATERAL LOWER EXTREMITY VEINS. Patient is a 64-year-old female who presented with shortness of breaths/cough/leg edema and dyspnea on exertion. Presentation questions acute heart failure versus COPD exacerbation. Patient denies previously reported heart failure. Does have acute respiratory failure. There is question about chronic respiratory failure because of long-term smoking. Pulmonary is following. Eventhough the BNP is normal, component of acute on chronic D-CHF cannot be ruled out. Acute respiratory failure COPD exacerbation Questionable acute on chronic diastolic heart failure Tobacco dependence Morbid obesity Alcohol use/abuse History of pulmonary nodules Cardiac suggestion for management: Manage on telemetry Request for EKG Gentle diuresis Follow-up electrolytes and kidney function tests and correct abnormalities Request for Echocardiogram Oxygen supplementation CT of the chest without contrast. Pulmonary is following Further evaluation and management depends on the above and clinical course A total of 55 minutes was spent reviewing the patient record, examining the patient, making a diagnostic and therapeutic plan, discussing this plan with medical personnel, following up on diagnostic studies and following the patient for clinical stability excluding any and all procedures. At least 50% of this time was spent in direct, [id number] contact. Thank you for allowing me to participate in this patient's care. Further recommendations will depend on patient's clinical course. Please do not hesitate to contact me if you have any questions or concerns. This medical document was created using electronic medical record system with [employer] computerized dictation system. Although this document has been carefully reviewed, there may still be some phonetic and typographical errors. These areas are purely typographical due to the imperfection of the software programs, and do not reflect any compromise in the patient's medical care Plan discussed with: Patient, Other (nurse) SHEILA SANTOS MD Nov 12, 2024 06:53
[2024-11-12 10:07] LABS: Hepatitis B Surface Antigen Negative (Negative)
[2024-11-12] MEDS: predniSONE 20 MG TAB PO SCH (10:27)
[2024-11-12] MEDS: ENOXAPARIN SOD 40 MG/0.4 ML SYRINGE SC SCH (10:27)
[2024-11-12 10:31] LABS: Hepatitis C Antibody Negative (Negative)
--- NOTE | 2024-11-12 10:35 | DVH ---
Procedure: CT CHEST WITHOUT CONTRAST Reason for study/Clinical History: CHF Exacerbation Comparison Study: None Exam Date: 11/12/2024 08:10 AM TECHNIQUE: Multidetector CT of the chest was performed from the lung apices to the upper abdomen with out the use of intravenous contract. Axial, coronal and sagittal multiplanar reformats were performed . Radiation Dose Information: CT Dose: CTDI volume is 12.74 mGy. Dose-length product is 431.04 mGy*cm The dose indicators for CT are the volume Computed Tomography (CT) Dose Index (CTDIvol) and the Dose Length Product (DLP), and are measured in units of mGy and mGy-cm, respectively. These indicators are not patient dose, but values generated from the CT scanner acquisition factors. The report includes radiation exposure data for exposures received during this examination. FINDINGS: Lower neck: Normal thyroid. Lungs: No focal consolidation, pleural effusion or pneumothorax. Heart/Vascular Structures: Normal heart size. No pericardial effusion. Lymph Nodes: No adenopathy Pleura: No pleural effusion or significant pneumothorax. Musculoskeletal: No acute osseous abnormality. Soft tissues: Normal. Upper abdomen: Limited portions of the upper abdomen are unremarkable. IMPRESSION: No acute intrathoracic abnormality. Radiation optimization: All CT scans at this facility use at least one of these dose optimization haroon hniques: automated exposure control mA and/or kV adjustment per patient size (includes targeted exam s where dose is matched to clinical indication) or iterative reconstruction.
--- NOTE | 2024-11-12 12:48 | DVHPN2 ---
Progress Note - Dictate Date Seen: Nov 12, 2024 Medical Necessity Reason Pt with a Central, PICC or Fol: No vital signs Vital Sign Date Time Temp Pulse Resp B/P (MAP) Pulse Ox O2 Delivery O2 Flow Rate FiO2 11/12/24 11:28 69 122/70 11/12/24 10:00 96 Nasal Cannula 3.0 11/12/24 10:00 32 11/12/24 08:35 98.1 16 98.1 Total Intake and Output 11/11/24 11/11/24 11/12/24 15:00 23:00 07:00 Intake Total 800 ml Balance 800 ml medications Current Medications Medications Dose Ordered Sig/Mayela Route Start Time Stop Time Status Last Admin Dose Admin Acetaminophen/ Hydrocodone Bitart 1 tab Q4HP PRN PO 11/11/24 13:30 11/11/24 21:28 Enoxaparin Sodium 40 mg DAILY SC 11/12/24 10:00 11/12/24 10:27 Acetaminophen 650 mg Q6HP PRN PO 11/11/24 13:30 11/12/24 00:53 Morphine Sulfate 2 mg Q4HPRN PRN IV 11/11/24 13:30 Nitroglycerin 0.4 mg Q5MINP PRN SL 11/11/24 13:30 Morphine Sulfate 2 mg Q30M PRN IV 11/11/24 13:30 Atorvastatin Calcium 20 mg HS PO 11/11/24 22:00 11/11/24 20:57 Metoprolol Tartrate 25 mg BID PO 11/11/24 22:00 11/12/24 10:28 Albuterol 2.5 mg Q6HP PRN NEB 11/11/24 13:30 11/11/24 19:48 Ipratropium [place] 0.5 mg Q6HP PRN NEB 11/11/24 13:30 11/11/24 19:48 Morphine Sulfate 2 mg Q4HPRN PRN IV 11/11/24 15:15 Furosemide 20 mg BIDD IV 11/11/24 18:00 11/12/24 05:59 Prednisone 20 mg BID PO 11/12/24 10:00 11/12/24 10:27 objective General Appearance: alert, no distress HEENT: EOMI, PERRLA, normal external inspect of ears, no icterus, no nasal drainage Neck: no carotid bruit, no jugular venous distention (JVD), no lymphadenopathy Chest: normal thorax Respiratory: clear to auscultation, normal air movement Cardiovascular: regular rate and rhythm, no diastolic murmur, no jugular venous distention (JVD), no rub, no systolic murmur Abdominal: soft, no hepatomegaly, no mass, no splenomegaly, no tenderness Genitourinary: grossly normal external Musculoskeletal: no joint tenderness, no swelling Extremities: normal pulses, no calf tenderness, no clubbing, no cyanosis, no edema Skin: no bruising, no jaundice, no rash Neurological: alert, No focal deficit laboratory and microbiology Laboratory Tests 11/12/24 05:54 Test 11/12/24 05:54 Range/Units Serum Glucose 153 H 74-106 mg/dL Problem List 1. Acute hypoxic respiratory failure Monitor, supplement O2, med neb treatment 2. COPD exacerbation Monitor, pulmonary consult 3. Smoker Monitor, smoking cessation 4. ETOH Abuse Monitor 5. Obesity Monitor, r/o CHF 6. GERD Monitor Assessment/Plan Subjective Patient is awake and alert. Objective I spoke with patient and patient's daughter at bedside. Patient was admitted for acute on chronic hypoxic respiratory failure. Patient has COPD exacerbation. Patient was seen two weeks ago at [facility] for an NSTEMI. Patient had a stress test done which had no acute findings. EF was estimated at 64%. Patient had no signs of heart failure at that time. BNP levels on this admission were within normal limits. Plan Change prednisone to oral Solumedrol. Patient has wheezing throughout all her lobes. Continue supplemental O2. Patient to have scheduled breathing treatments. Add antibiotics and pulmonary and cardiology has been consulted. Plan discussed with: Patient, Other MASSIMO ARROYO NP Nov 12, 2024 12:48
--- NOTE | 2024-11-12 12:48 | DVHHP2 ---
Admitting Diagnosis: Admission Date: 11/12/24 SOB and cough History of Present Illness Patient is a 64 year old female who presents to the ED for a CC of SOB and a cough for a 'few weeks'. Patient also has edema to both legs. Patient was seen at [facility] two weeks ago and received IV lasix for edema and SOB. Since her DC from [facility], she states her SOB has been worsening, and especially with exertion. On RA she is satting at 80%. Patient was placed on 4L NC and now is 93%. Patient denies chest pain or any other associated symptoms. While in the emergency department the patient was evaluated by the provider, As per provider: Labs, vital signs, and imagining monitored. Patient will be admitted for further evaluation and treatment. I discussed admission with the patient/family and is in agreement to treatment plan. Patient Family History: Cerebrovascular accident (CVA) G8 MOTHER Diabetes mellitus G8 MOTHER Allergies: Coded Allergies: NO KNOWN ALLERGIES (Unverified , 07/07/19) Home Meds Reported Medications Albuterol Sulfate (Albuterol Sulfate Hfa) 108 Mcg/Act Aer, 2 PUFF INH Q4-6HR PRN for 16 Days, #8.5 11/12/24 Fluticasone Propionate (Nasal) (Fluticasone Propionate) 50 Mcg/Act Spr, 1 SPRAY EACHNOSTRI DAILY for 30 Days, #16 11/12/24 Aspirin (Aspir-81) 81 Mg Tab, 1 TAB PO DAILY, #30 TAB 5 Refills 11/11/24 Atorvastatin Calcium (ATORVASTATIN CALCIUM) 40 Mg Tab, 1 TAB PO DAILY, #30 TAB 5 Refills 11/11/24 Pantoprazole Sodium Sesquihydr (Protonix) 40 Mg Tab, 40 MG PO DAILY, #30 TAB 11/11/24 Metoprolol Succinate (Metoprolol Succinate Er) 25 Mg Tab, 25 MG PO DAILY for 30 Days, MG 11/11/24 Amlodipine Besylate (Amlodipine Besylate) 5 Mg Tab, 10 MG PO DAILY for 30 Days, MG 11/11/24 Losartan Potassium (Losartan Potassium) 50 Mg Tab, 1 TAB PO DAILY, #30 TAB 5 Refills 11/11/24 Discontinued Reported Medications Omeprazole (Omeprazole) 20 Mg Cap, 20 MG PO DAILY, CAP 07/07/19 Current Medications Current Medications Medications (Trade) Dose Ordered Sig/Mayela Route PRN Reason Start Time Stop Time Status Last Admin Enoxaparin Sodium (Lovenox) 40 mg DAILY SC 11/12/24 10:00 11/12/24 10:27 Atorvastatin Calcium (Lipitor) 20 mg HS PO 11/11/24 22:00 11/11/24 20:57 Metoprolol Tartrate (Lopressor Tablet) 25 mg BID PO 11/11/24 22:00 11/12/24 10:28 Furosemide (Lasix Injection) 40 mg BID IV 11/11/24 22:00 11/11/24 13:30 DC Furosemide (Lasix Injection) 20 mg BIDD IV 11/11/24 18:00 11/12/24 05:59 Prednisone 20 mg BID PO 11/12/24 10:00 11/12/24 14:20 DC 11/12/24 10:27 Albuterol (Ventolin Medneb) 2.5 mg Q6HP NEB 11/12/24 14:30 11/12/24 14:39 DC Ipratropium [place] (Atrovent Medneb) 0.5 mg Q6HP NEB 11/12/24 14:30 11/12/24 14:39 DC Methylprednisolone Sodium Succinate (Solu Medrol) 40 mg Q6HR IV 11/12/24 14:30 11/12/24 15:23 Azithromycin 250 ml @ 125 mls/hr DAILY IV 11/12/24 14:30 11/12/24 15:23 Albuterol (Ventolin Medneb) 2.5 mg Q6HWA NEB 11/12/24 18:00 Ipratropium [place] (Atrovent Medneb) 0.5 mg Q6HWA NEB 11/12/24 18:00 Zolpidem Tartrate (Ambien) 5 mg HSPRN PRN PO FOR INSOMNIA 11/12/24 16:00 Review of Systems Constitutional: denies chills, denies fever, denies malaise Eyes: denies eye pain, denies vision change ENT: denies ear pain, denies headache, denies nasal congestion, denies painful swallowing, denies voice change Cardiovascular: denies chest pain, denies edema, denies orthopnea, denies palpitations, denies paroxysmal nocturnal dyspnea Respiratory: denies cough, denies shortness of breath Gastrointestinal: denies constipation, denies diarrhea, denies nausea, denies vomiting Genitourinary: denies dysuria, denies frequent urination, denies urethral discharge Musculoskeletal: denies back pain, denies joint pain, denies muscle pain Skin: denies bruising, denies itching, denies rash Neurological: denies focal weakness, denies headache, denies sensory changes Psychiatric: denies anxiety, denies depression Endocrine: denies polydipsia, denies polyuria Hematologic/Lymphatic: denies easy bleeding, denies easy bruising, denies enlarged lymph nodes Allergic/Immunologic: denies allergy, denies hives Vital Signs Vital Signs Date Time Temp Pulse Resp B/P (MAP) Pulse Ox O2 Delivery O2 Flow Rate FiO2 11/12/24 13:00 98.0 69 16 122/70 (87) 94 98.0 11/12/24 10:00 Nasal Cannula 3.0 11/12/24 10:00 32 Physical Exam General Appearance: alert, no distress HEENT: EOMI, PERRLA, normal external inspect of ears, no icterus, no nasal drainage Neck: no carotid bruit, no jugular venous distention (JVD), no lymphadenopathy Chest: normal thorax Respiratory: clear to auscultation, normal air movement Cardiovascular: regular rate and rhythm, no diastolic murmur, no jugular venous distention (JVD), no rub, no systolic murmur Abdominal: soft, no hepatomegaly, no mass, no splenomegaly, no tenderness Genitourinary: grossly normal external Musculoskeletal: no joint tenderness, no swelling Extremities: normal pulses, no calf tenderness, no clubbing, no cyanosis, no edema Skin: no bruising, no jaundice, no rash Neurological: alert, No focal deficit Results Labs Test 11/12/24 05:54 11/11/24 20:30 11/11/24 18:21 11/11/24 16:26 Range/Units White Blood Count 9.0 4.4-10.8 10^3/uL Red Blood Count 4.48 4.0-5.20 10^6/uL Hemoglobin 14.7 12.2-16.2 g/dL Hematocrit 43.2 36.0-46.0 % Mean Corpuscular Volume 96.5 80.0-100.0 fL Mean Corpuscular Hemoglobin 32.9 H 28.0-32.0 pg Mean Corpuscular Hemoglobin Concent 34.1 32.0-36.0 g/dL Red Cell Distribution Width 13.8 11.8-14.3 % Platelet Count 208 140-450 10^3/uL Mean Platelet Volume 7.7 6.9-10.8 fL Neutrophils (%) (Auto) 88.1 H 37.0-80.0 % Lymphocytes (%) (Auto) 6.4 L 10.0-50.0 % Monocytes (%) (Auto) 4.2 0.0-12.0 % Eosinophils (%) (Auto) 0.6 0.0-7.0 % Basophils (%) (Auto) 0.7 0.0-2.0 % Neutrophils # (Auto) 7.9 1.6-8.6 10 ^3/uL Lymphocytes # (Auto) 0.6 0.4-5.4 10 ^3/uL Monocytes # (Auto) 0.4 0-1.3 10 ^3/uL Eosinophils # (Auto) 0.1 0-0.8 10 ^3/uL Basophils # (Auto) 0.1 0-0.2 10 ^3/uL Nucleated Red Blood Cells 0.0 % Sodium Level 138 136-145 mmol/L Potassium Level 4.3 3.5-5.1 mmol/L Chloride Level 100 98-107 mmol/L Carbon Dioxide Level 28 20-31 mmol/L Anion Gap 10 5-15 Blood Urea Nitrogen 12 9-23 mg/dL Creatinine 0.75 0.550-1.02 mg/dL Glomerular Filtration Rate Calc 88 >90 mL/min BUN/Creatinine Ratio 16.0 10.0-20.0 Serum Glucose 153 H 74-106 mg/dL Calcium Level 9.8 8.7-10.4 mg/dL Total Bilirubin 1.4 H 0.2-1.0 mg/dL Aspartate Amino Transferase (AST) 11 L 13-40 U/L Alanine Aminotransferase (ALT) 14 7-40 U/L Alkaline Phosphatase 85 46-116 U/L Total Protein 6.7 5.7-8.2 g/dL Albumin 4.4 3.2-4.8 g/dL Hepatitis B Surface Antigen Negative Negative Hepatitis C Antibody Negative Negative Troponin I High Sensitivity 3 L </=34 ng/L Erythrocyte Sedimentation Rate 9 0-20 mm/hr D-Dimer, Quantitative 0.33 0.0-0.49 mg/L FEU Blood Gas Specimen Type Arterial Blood Gas Sample Site Left radial Blood Gas Patient Temperature 37.0 Arterial Blood Date Drawn [id number] Arterial Blood pH 7.424 7.350-7.450 Arterial Blood Partial Pressure CO2 37.5 32.0-45.0 mmHg Arterial Blood Partial Pressure O2 64.6 L 83.0-108.0 mmHg Arterial Blood HCO3 24.0 21.0-28.0 mmol/L Arterial Blood Oxygen Saturation 92.4 L 94.0-98.0 % Arterial Blood Base Excess -0.1 -2.0-3.0 mmol/L Arterial Blood Oxyhemoglobin 90.6 L 94.0-98.0 % Arterial Blood Carboxyhemoglobin 1.4 0.5-1.5 % Arterial Blood Methemoglobin 0.5 0.0-1.5 % Harish Test Yes Blood Gas Total Hemoglobin 15.10 12.0-16.0 g/dL Blood Gas Liter Flow 2.00 Blood Gas Modality Nasal cannula FiO2 % 28.0 Test 11/11/24 11:42 11/11/24 11:14 Range/Units Urine Color Colorless Yellow Urine Clarity Clear Clear Urine pH 7.0 5.0-9.0 Urine Specific [place] 1.006 1.001-1.035 Urine Protein Negative Negative Urine Ketones Negative Negative Urine Blood Negative Negative /uL Urine Nitrite Negative Negative Urine Bilirubin Negative Negative Urine Urobilinogen Normal Negative mg/dL Urine Leukocyte Esterase Negative Negative /uL Urine RBC <1 0 - 4 /hpf Urine Microscopic WBC 2 0-5 /HPF Urine Squamous Epithelial Cells Few <5 /hpf Urine Bacteria None seen None Seen /hpf Urine Glucose Normal Normal mg/dL C-Reactive Protein High Sensitivity 0.27 <1.0 mg/dL B-Type Natriuretic Peptide 41.62 0-100 pg/mL Microbiology Date/Time Source Procedure Growth Status 11/11/24 21:00 Nose MRSA Screen - Final Complete Plan 1. Acute hypoxic respiratory failure Monitor, supplement O2, med neb treatment 2. COPD exacerbation Monitor, pulmonary consult 3. Smoker Monitor, smoking cessation 4. ETOH Abuse Monitor 5. Obesity Monitor, r/o CHF 6. GERD Monitor Plan discussed with: Patient, Other MASSIMO ARROYO NP Nov 12, 2024 12:48
[2024-11-12] MEDS ORDERED: IPRATROPIUM BROM 0.5 MG/2.5ML INH SOL NEB SCH (14:30)
[2024-11-12] MEDS ORDERED: ALBUTEROL SULF 2.5 MG/0.5ML(0.5%) NEB SOLN NEB SCH (14:30)
[2024-11-12] MEDS: AZITHROMYCIN 500MG/ 250ML 250 ML IV SCH (15:23)
[2024-11-12] MEDS: methylPREDNISolone SOD SUCC 40 MG/ML VL IV SCH (15:23)
[2024-11-12] MEDS: IPRATROPIUM BROM 0.5 MG/2.5ML INH SOL NEB SCH (18:44)
[2024-11-12] MEDS: ALBUTEROL SULF 2.5 MG/0.5ML(0.5%) NEB SOLN NEB SCH (18:45)
--- NOTE | 2024-11-12 20:36 | DVHPN2 ---
Progress Note - Dictate Date Seen: Nov 12, 2024 Medical Necessity Reason Pt with a Central, PICC or Fol: No Subjective Patient seen and examined at bedside. Remains on supplemental oxygen Overnight events reviewed. vital signs Vital Sign Date Time Temp Pulse Resp B/P (MAP) Pulse Ox O2 Delivery O2 Flow Rate FiO2 11/12/24 18:50 87 18 98 11/12/24 18:44 Nasal Cannula 3.0 11/12/24 18:44 32 11/12/24 18:41 145/71 11/12/24 16:50 97.8 97.8 Total Intake and Output 11/11/24 11/11/24 11/12/24 15:00 23:00 07:00 Intake Total 800 ml Balance 800 ml medications Current Medications Medications Dose Ordered Sig/Mayela Route Start Time Stop Time Status Last Admin Dose Admin Acetaminophen/ Hydrocodone Bitart 1 tab Q4HP PRN PO 11/11/24 13:30 11/11/24 21:28 1 TAB Enoxaparin Sodium 40 mg DAILY SC 11/12/24 10:00 11/12/24 10:27 40 MG Acetaminophen 650 mg Q6HP PRN PO 11/11/24 13:30 11/12/24 00:53 650 MG Morphine Sulfate 2 mg Q4HPRN PRN IV 11/11/24 13:30 Nitroglycerin 0.4 mg Q5MINP PRN SL 11/11/24 13:30 Morphine Sulfate 2 mg Q30M PRN IV 11/11/24 13:30 Atorvastatin Calcium 20 mg HS PO 11/11/24 22:00 11/11/24 20:57 20 MG Metoprolol Tartrate 25 mg BID PO 11/11/24 22:00 11/12/24 10:28 25 MG Morphine Sulfate 2 mg Q4HPRN PRN IV 11/11/24 15:15 Furosemide 20 mg BIDD IV 11/11/24 18:00 11/12/24 18:41 20 MG Methylprednisolone Sodium Succinate 40 mg Q6HR IV 11/12/24 14:30 11/12/24 18:40 40 MG Azithromycin 250 ml @ 125 mls/hr DAILY IV 11/12/24 14:30 11/12/24 15:23 125 MLS/HR Albuterol 2.5 mg Q6HWA NEB 11/12/24 18:00 11/12/24 18:45 2.5 MG Ipratropium [place] 0.5 mg Q6HWA NEB 11/12/24 18:00 11/12/24 18:44 0.5 MG Zolpidem Tartrate 5 mg HSPRN PRN PO 11/12/24 16:00 objective Gen.: Patient lying in bed in no apparent distress. On supplemental oxygen. Head: Normocephalic, atraumatic. Eyes: EOMI/PERRLA. Ears: Normal hearing. Normal anatomy. Neck/trachea: Trachea midline, supple. Nose: Normal external anatomy. Mouth: Moist mucous membranes. Chest: Decreased air entry bilaterally. Wheezing improving. No rhonchi. Cardiovascular: Positive S1, positive S2. Regular rate and rhythm. Abdomen: Positive bowel sounds in all 4 quadrants. Soft, non-tender, non- distended. : Deferred. Rectal: Deferred. Skin: Warm, dry. Intact. Extremities: 2+ radial pulses bilaterally. No lower extremity edema. Neuro: Awake, alert, oriented x3. No gross motor or sensory deficits. Cranial nerves II through XII intact. Gait not assessed. laboratory and microbiology Laboratory Tests 11/12/24 05:54 Test 11/12/24 05:54 Range/Units Serum Glucose 153 H 74-106 mg/dL Assessment/Plan Impression: Acute hypoxic respiratory failure Acute exacerbation of COPD COPD/Emphysema, mild Smoker/Nicotine dependence Obesity BMI 30.6 Acute on chronic diastolic heart failure Thoracic Scoliosis/Spondylosis Events: Remains on supplemental oxygen, 3 LPM NC Taper O2 as tolerated Chest CT reviewed, no acute abnormalities. Continue bronchodilators Continue steroids - prednisone Wheezing on exam, slowly improving. Continue antibiotics Diurese with Lasix Monitor ins/outs Monitor renal function Monitor electrolytes. Supplement as necessary Labs and imaging reviewed. Rest of plan as noted below. Plan: Supplemental oxygen Keep o2 sat above 92% Bronchodilators Steroids - prednisone Obtain Echo Cardiology recommendations appreciated Diurese to euvolemia Monitor ins/outs Monitor renal function Monitor electrolytes Supplement as necessary Smoking cessation discussed for greater than 10 minutes. Obesity complicates all care. Diet and lifestyle modifications for weight reduction. DVT prophylaxis-Lovenox Prognosis: Guarded given patient's multiple co-morbidities. Rest of plan per hospitalist and other consultants. Thank you, ALEJANDRA Gomez, for allowing me to participate in this patient's care. Further recommendations will depend on the patient's clinical course. Please do not hesitate to contact me if you have any questions or concerns. This medical document was created using an electronic medical record system with [employer] dictation system. Although these documentations are being carefully reviewed, there may still be some phonetic and typographical changes. The errors are purely typographical, due to imperfection on the software program, and do not reflect any compromise in the patient's medical care. Plan discussed with: Patient, Other (REENA Green) GERALDO CLEMONS MD Nov 12, 2024 20:36
[2024-11-12] MEDS: ZOLPIDEM TARTRATE 5 MG TAB PO PRN (21:14)
[2024-11-13] VITALS (14 sets, daily range): BP systolic 103–148; BP diastolic 63–86; PULSE 64–104; RESP 18–24; TEMP 97.5–98.6; O2SAT 92–99
--- NOTE | 2024-11-13 07:30 | DVHSR ---
APPROVED REPORT EXAM: Two-dimensional and M-mode echocardiogram with Doppler and color Doppler. Blood Pressure: 127/77 mmHg INDICATION SOB RISK FACTORS Obesity: Height: 5'3, Weight: 194 DIMENSIONS LVDd3.5 (3.8-5.7cm)LA (2D)3.6 (1.9-4.0cm)Aortic Root3.3 (2.0-3.7cm) LVDs2.5 (2.5-4.0cm)LA (MM) (1.9-4.0cm)Aortic Cusp Exc1.7 (1.5-2.0cm) EF (%) 58.0 (55-70%)Rt. Atrium4.4 (1.9-4.0cm)Asc. Aorta cm IVSd1.1 (0.7-1.1cm)RV (D)4.2 (1.8-2.4cm) PWd1.0 (0.7-1.1cm) Mitral Valve MitralMitral Stenosis E wave0.69m/sMV Mean GR.mmHg A wave0.95m/sMV Peak GR.72mmHg E/A ratio0.72D MVAcm2 DECEL [id number] 1/2 [place] Aortic Valve Aortic ValveAortic Stenosis V11.73m/Puja Mean GR.7mmHg V21.82m/Puja Peak GR.13mmHg LVOT Diameter2.0 (1.8-2.4cm)Doppler AVA2.98cm2 Pulmonic Valve V21.05m/s Tricuspid Valve TR Velocity2.42m/s [id number] Other Information Quality : Technically LimitedRhythm : Technically limited study due to patient position. Conclusion Left ventricle: Mild concentric left ventricular hypertrophy was seen. LVEF was around 60%. There was no gross wall motion abnormality. Right ventricle: Right ventricle was mildly dilated with normal systolic function. Left atrium was normal-sized. Right atrium was mildly dilated. Aortic valve: Aortic valve was trileaflet. There was no aortic insufficiency/stenosis. There was tr lisa mitral/tricuspid regurgitation. Pulmonary valve was not well visualized. Right ventricular systolic pressure was assessed at 29 mm Hg. There was no echocardiographic evidenc e for pulmonary hypertension. IVC was normal-sized with normal respiratory variation. There was no pericardial effusion.
--- NOTE | 2024-11-13 07:41 | DVHPN2 ---
Progress Note - Dictate Date Seen: Nov 13, 2024 Medical Necessity Reason Pt with a Central, PICC or Fol: No vital signs Vital Sign Date Time Temp Pulse Resp B/P (MAP) Pulse Ox O2 Delivery O2 Flow Rate FiO2 11/13/24 06:31 147/67 11/13/24 05:00 97.7 69 19 95 97.7 11/12/24 20:00 Nasal Cannula* 3 32 Total Intake and Output 11/12/24 11/12/24 11/13/24 15:00 23:00 07:00 Intake Total 474 ml 150 ml 850 ml Output Total 0 ml Balance 474 ml 150 ml 850 ml medications Current Medications Medications Dose Ordered Sig/Mayela Route Start Time Stop Time Status Last Admin Dose Admin Acetaminophen/ Hydrocodone Bitart 1 tab Q4HP PRN PO 11/11/24 13:30 11/12/24 21:15 1 TAB Enoxaparin Sodium 40 mg DAILY SC 11/12/24 10:00 11/12/24 10:27 40 MG Acetaminophen 650 mg Q6HP PRN PO 11/11/24 13:30 11/12/24 00:53 650 MG Morphine Sulfate 2 mg Q4HPRN PRN IV 11/11/24 13:30 Nitroglycerin 0.4 mg Q5MINP PRN SL 11/11/24 13:30 Morphine Sulfate 2 mg Q30M PRN IV 11/11/24 13:30 Atorvastatin Calcium 20 mg HS PO 11/11/24 22:00 11/12/24 21:14 20 MG Metoprolol Tartrate 25 mg BID PO 11/11/24 22:00 11/12/24 21:16 25 MG Morphine Sulfate 2 mg Q4HPRN PRN IV 11/11/24 15:15 Furosemide 20 mg BIDD IV 11/11/24 18:00 11/13/24 06:31 20 MG Methylprednisolone Sodium Succinate 40 mg Q6HR IV 11/12/24 14:30 11/13/24 06:27 40 MG Azithromycin 250 ml @ 125 mls/hr DAILY IV 11/12/24 14:30 11/12/24 15:23 125 MLS/HR Albuterol 2.5 mg Q6HWA NEB 11/12/24 18:00 11/13/24 04:39 2.5 MG Ipratropium [place] 0.5 mg Q6HWA NEB 11/12/24 18:00 11/13/24 04:39 0.5 MG Zolpidem Tartrate 5 mg HSPRN PRN PO 11/12/24 16:00 11/12/24 21:14 5 MG laboratory and microbiology Laboratory Tests 11/12/24 05:54 Test 11/12/24 05:54 Range/Units Serum Glucose 153 H 74-106 mg/dL Assessment/Plan Patient is a 64-year-old female who presented with few weeks of shortness of breaths/cough and leg edema. She also complained of dyspnea on exertion. She was at [facility] few weeks back. Mentions she did not improve and decided to come to this hospital. Prior to these episodes she denies any previous cardiac problem. In our emergency room, oxygen saturation was found to be low at 80% on room air. It is of note that the patient does have chronic COPD and have been smoking for long-term. There has been question about heart failure and cardiology is involved. Patient herself denies any previous knowledge of heart problem. Denies previously being diagnosed with heart failure. Denies chest pains. Does have limited exertional capacity for long time. Not in acute distress, lying flat in bed. No JVD. Mucosa is pink and wet. There is no carotid bruit. No goiter. Not using accessory muscles of breathing. Scattered rhonchi in the lungs is heard. Cardiac: Regular, no thrill/gallop. Abdomen is soft. There was no gross mass/hepatomegaly. Bowel sound is positive. Extremities reveal 2+ edema bilaterally. Dorsalis pedis is 2+ Past medical history includes COPD, hypertension, hyperlipidemia, morbid obesity, history of prediabetes, active cigarette smoking, daily use of alcohol, pulmonary nodule, status post cholecystectomy/tonsillectomy/tubal ligation and old history of ectopic pregnancies. Echocardiogram of June 2019 had revealed concentric left ventricular hypertrophy, normal valves, ejection fraction of 60% and right ventricular systolic pressure of 30 mm Hg Echocardiogram of October 27, 2024 (performed in [facility]) reported ejection fraction of 60-65%, mild increase in left ventricular thickness, stage I diastolic dysfunction, mild MR/TR/PI Nuclear stress test of October 28, 2024 (performed in [facility]) reported no ischemia/normal wall motion and ejection fraction of 64% Creatinine: 0.78 - 0.75 Potassium: 4.1 - 4.3 Troponin (high sensitive): < 3 - 3 - 3 BNP: 41.62 D-dimer: 0.33 (wnl) CRP: 0.27 ESR: 9 U/A: non-revealing Chest x-ray reported: IMPRESSION: 1. No acute intrathoracic process. 2. Thoracic spondylosis and scoliosis. Venous duplex of lower ext: IMPRESSION: NO SONOGRAPHIC EVIDENCE FOR DEEP VENOUS THROMBOSIS IN THE BILATERAL LOWER EXTREMITY VEINS. CT of chest revealed: IMPRESSION: No acute intrathoracic abnormality. Echocardiogram revealed: Left ventricle: Mild concentric left ventricular hypertrophy was seen. LVEF was around 60%. There was no gross wall motion abnormality. Right ventricle: Right ventricle was mildly dilated with normal systolic function. Left atrium was normal-sized. Right atrium was mildly dilated. Aortic valve: Aortic valve was trileaflet. There was no aortic insufficiency/stenosis. There was trace mitral/tricuspid regurgitation. Pulmonary valve was not well visualized. Right ventricular systolic pressure was assessed at 29 mm Hg. There was no echocardiographic evidence for pulmonary hypertension. IVC was normal-sized with normal respiratory variation. There was no pericardial effusion. Patient is a 64-year-old female who presented with shortness of breaths/cough/leg edema and dyspnea on exertion. Presentation questions acute heart failure versus COPD exacerbation. Patient denies previously reported heart failure. Does have acute respiratory failure. There is question about chronic respiratory failure because of long-term smoking. Pulmonary is following. Eventhough the BNP is normal, component of acute on chronic D-CHF cannot be ruled out. Acute respiratory failure COPD exacerbation Questionable acute on chronic diastolic heart failure Tobacco dependence Morbid obesity Alcohol use/abuse History of pulmonary nodules Cardiac suggestion for management: Manage on telemetry Request for EKG Gentle diuresis Follow-up electrolytes and kidney function tests and correct abnormalities Oxygen supplementation Pulmonary is following Cardiac garcia, stable Further evaluation and management depends on the above and clinical course A total of 55 minutes was spent reviewing the patient record, examining the patient, making a diagnostic and therapeutic plan, discussing this plan with medical personnel, following up on diagnostic studies and following the patient for clinical stability excluding any and all procedures. At least 50% of this time was spent in direct, [id number] contact. Thank you for allowing me to participate in this patient's care. Further recommendations will depend on patient's clinical course. Please do not hesitate to contact me if you have any questions or concerns. This medical document was created using electronic medical record system with [employer] computerized dictation system. Although this document has been carefully reviewed, there may still be some phonetic and typographical errors. These areas are purely typographical due to the imperfection of the software programs, and do not reflect any compromise in the patient's medical care Plan discussed with: Patient, Other (nurse) SHEILA SANTOS MD Nov 13, 2024 07:41
--- NOTE | 2024-11-13 11:06 | ECG ---
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
--- NOTE | 2024-11-13 12:39 | DVHPN2 ---
Progress Note - Dictate Date Seen: Nov 13, 2024 Medical Necessity Reason Pt with a Central, PICC or Fol: No vital signs Vital Sign Date Time Temp Pulse Resp B/P (MAP) Pulse Ox O2 Delivery O2 Flow Rate FiO2 11/13/24 10:00 93 Nasal Cannula 3.0 11/13/24 10:00 32 11/13/24 09:09 64 135/75 11/13/24 09:00 97.5 24 97.5 Total Intake and Output 11/12/24 11/12/24 11/13/24 15:00 23:00 07:00 Intake Total 474 ml 150 ml 850 ml Output Total 0 ml Balance 474 ml 150 ml 850 ml medications Current Medications Medications Dose Ordered Sig/Mayela Route Start Time Stop Time Status Last Admin Dose Admin Acetaminophen/ Hydrocodone Bitart 1 tab Q4HP PRN PO 11/11/24 13:30 11/12/24 21:15 1 TAB Enoxaparin Sodium 40 mg DAILY SC 11/12/24 10:00 11/13/24 09:09 40 MG Acetaminophen 650 mg Q6HP PRN PO 11/11/24 13:30 11/12/24 00:53 650 MG Morphine Sulfate 2 mg Q4HPRN PRN IV 11/11/24 13:30 Nitroglycerin 0.4 mg Q5MINP PRN SL 11/11/24 13:30 Morphine Sulfate 2 mg Q30M PRN IV 11/11/24 13:30 Atorvastatin Calcium 20 mg HS PO 11/11/24 22:00 11/12/24 21:14 20 MG Metoprolol Tartrate 25 mg BID PO 11/11/24 22:00 11/13/24 09:09 25 MG Morphine Sulfate 2 mg Q4HPRN PRN IV 11/11/24 15:15 Furosemide 20 mg BIDD IV 11/11/24 18:00 11/13/24 06:31 20 MG Methylprednisolone Sodium Succinate 40 mg Q6HR IV 11/12/24 14:30 11/13/24 12:31 40 MG Azithromycin 250 ml @ 125 mls/hr DAILY IV 11/12/24 14:30 11/13/24 09:08 125 MLS/HR Albuterol 2.5 mg Q6HWA NEB 11/12/24 18:00 11/13/24 04:39 2.5 MG Ipratropium [place] 0.5 mg Q6HWA NEB 11/12/24 18:00 11/13/24 04:39 0.5 MG Zolpidem Tartrate 5 mg HSPRN PRN PO 11/12/24 16:00 11/12/24 21:14 5 MG objective General Appearance: alert, no distress HEENT: EOMI, PERRLA, normal external inspect of ears, no icterus, no nasal drainage Neck: no carotid bruit, no jugular venous distention (JVD), no lymphadenopathy Chest: normal thorax Respiratory: clear to auscultation, normal air movement Cardiovascular: regular rate and rhythm, no diastolic murmur, no jugular venous distention (JVD), no rub, no systolic murmur Abdominal: soft, no hepatomegaly, no mass, no splenomegaly, no tenderness Genitourinary: grossly normal external Musculoskeletal: no joint tenderness, no swelling Extremities: normal pulses, no calf tenderness, no clubbing, no cyanosis, no edema Skin: no bruising, no jaundice, no rash Neurological: alert, No focal deficit laboratory and microbiology Laboratory Tests 11/12/24 05:54 Test 11/12/24 05:54 Range/Units Serum Glucose 153 H 74-106 mg/dL Problem List 1. Acute hypoxic respiratory failure Monitor, supplement O2, med neb treatment 2. COPD exacerbation Monitor, pulmonary consult 3. Smoker Monitor, smoking cessation 4. ETOH Abuse Monitor 5. Obesity Monitor, r/o CHF 6. GERD Monitor Assessment/Plan Subjective: Patient is awake and alert. Objective: Patient was admitted for acute hypoxic respiratory failure and COPD exacerbation. Patient has underlying history of COPD. Patient was started on antibiotics, IV steroids, and Med-Neb treatments. Patient now stating she is feeling better. She is able to ambulate. Plan: Continue to encourage patient to ambulate. Monitor for signs of shortness of breath. Continue meds and treatments and supplemental O2 as needed. DC planning possibly for tomorrow. Plan discussed with: Patient, Other MASSIMO ARROYO NP Nov 13, 2024 12:39
[2024-11-13] MEDS: guaiFENesin 200 MG/10 ML UD PO PRN (20:34)
--- NOTE | 2024-11-13 23:33 | DVHPN2 ---
Progress Note - Dictate Date Seen: Nov 13, 2024 Medical Necessity Reason Pt with a Central, PICC or Fol: No Subjective Patient seen and examined at bedside. Remains on supplemental oxygen Overnight events reviewed. vital signs Vital Sign Date Time Temp Pulse Resp B/P (MAP) Pulse Ox O2 Delivery O2 Flow Rate FiO2 11/13/24 21:07 99 148/86 11/13/24 21:00 97.7 22 94 97.7 11/13/24 20:00 Nasal Cannula* 3 32 Total Intake and Output 11/12/24 11/12/24 11/13/24 15:00 23:00 07:00 Intake Total 474 ml 150 ml 850 ml Output Total 0 ml Balance 474 ml 150 ml 850 ml medications Current Medications Medications Dose Ordered Sig/Mayela Route Start Time Stop Time Status Last Admin Dose Admin Acetaminophen/ Hydrocodone Bitart 1 tab Q4HP PRN PO 11/11/24 13:30 11/12/24 21:15 1 TAB Enoxaparin Sodium 40 mg DAILY SC 11/12/24 10:00 11/13/24 09:09 40 MG Acetaminophen 650 mg Q6HP PRN PO 11/11/24 13:30 11/13/24 22:03 650 MG Morphine Sulfate 2 mg Q4HPRN PRN IV 11/11/24 13:30 Nitroglycerin 0.4 mg Q5MINP PRN SL 11/11/24 13:30 Morphine Sulfate 2 mg Q30M PRN IV 11/11/24 13:30 Atorvastatin Calcium 20 mg HS PO 11/11/24 22:00 11/13/24 21:06 20 MG Metoprolol Tartrate 25 mg BID PO 11/11/24 22:00 11/13/24 21:07 25 MG Morphine Sulfate 2 mg Q4HPRN PRN IV 11/11/24 15:15 Furosemide 20 mg BIDD IV 11/11/24 18:00 11/13/24 18:13 20 MG Methylprednisolone Sodium Succinate 40 mg Q6HR IV 11/12/24 14:30 11/13/24 18:13 40 MG Azithromycin 250 ml @ 125 mls/hr DAILY IV 11/12/24 14:30 11/13/24 09:08 125 MLS/HR Albuterol 2.5 mg Q6HWA NEB 11/12/24 18:00 11/13/24 19:44 2.5 MG Ipratropium [place] 0.5 mg Q6HWA NEB 11/12/24 18:00 11/13/24 19:45 0.5 MG Zolpidem Tartrate 5 mg HSPRN PRN PO 11/12/24 16:00 11/13/24 20:34 5 MG Guaifenesin 200 mg Q4HP PRN PO 11/13/24 20:15 11/13/24 20:34 200 MG objective Gen.: Patient lying in bed in no apparent distress. On supplemental oxygen. Head: Normocephalic, atraumatic. Eyes: EOMI/PERRLA. Ears: Normal hearing. Normal anatomy. Neck/trachea: Trachea midline, supple. Nose: Normal external anatomy. Mouth: Moist mucous membranes. Chest: Decreased air entry bilaterally. Wheezing improving. No rhonchi. Cardiovascular: Positive S1, positive S2. Regular rate and rhythm. Abdomen: Positive bowel sounds in all 4 quadrants. Soft, non-tender, non- distended. : Deferred. Rectal: Deferred. Skin: Warm, dry. Intact. Extremities: 2+ radial pulses bilaterally. No lower extremity edema. Neuro: Awake, alert, oriented x3. No gross motor or sensory deficits. Cranial nerves II through XII intact. Gait not assessed. laboratory and microbiology Laboratory Tests 11/12/24 05:54 Test 11/12/24 05:54 Range/Units Serum Glucose 153 H 74-106 mg/dL Assessment/Plan Impression: Acute hypoxic respiratory failure Acute exacerbation of COPD COPD/Emphysema, mild Smoker/Nicotine dependence Obesity BMI 30.6 Acute on chronic diastolic heart failure Thoracic Scoliosis/Spondylosis Events: Remains on supplemental oxygen, 3 LPM NC Taper O2 as tolerated Chest CT reviewed, no acute abnormalities. Continue bronchodilators Switched to IV steroids from PO steroids Wheezing on exam, slowly improving. Continue antibiotics Antitussive for cough Diurese with Lasix BID Monitor ins/outs Monitor renal function Monitor electrolytes. Supplement as necessary Lovenox for DVT ppx Labs and imaging reviewed. Rest of plan as noted below. Plan: Supplemental oxygen Keep o2 sat above 92% Bronchodilators IV Steroids Echo reviewed; LVEF was around 60%. RVSP 29 mmHg. No e/o pulmonary hypertension. Cardiology recommendations appreciated Diurese to euvolemia Monitor ins/outs Monitor renal function Monitor electrolytes Supplement as necessary Smoking cessation discussed for greater than 10 minutes. Obesity complicates all care. Diet and lifestyle modifications for weight reduction. DVT prophylaxis-Lovenox Prognosis: Guarded given patient's multiple co-morbidities. Rest of plan per hospitalist and other consultants. Thank you, ALEJANDRA Gomez, for allowing me to participate in this patient's care. Further recommendations will depend on the patient's clinical course. Please do not hesitate to contact me if you have any questions or concerns. This medical document was created using an electronic medical record system with [employer] dictation system. Although these documentations are being carefully reviewed, there may still be some phonetic and typographical changes. The errors are purely typographical, due to imperfection on the software program, and do not reflect any compromise in the patient's medical care. Plan discussed with: Patient, Other (REENA Velazco) GERALDO CLEMONS MD Nov 13, 2024 23:33
[2024-11-14] VITALS (15 sets, daily range): BP systolic 113–139; BP diastolic 65–81; PULSE 65–98; RESP 18–24; TEMP 97.3–98.3; O2SAT 90–100
[2024-11-14 06:19] LABS: Basophils # (auto) 0 10 ^3/uL (0-0.2); Basophils % (auto) 0.2 % (0.0-2.0); Eosinophils # (auto) 0 10 ^3/uL (0-0.8); Hematocrit 42.3 % (36.0-46.0); Hemoglobin 14.7 g/dL (12.2-16.2); Lymphocytes # (auto) 0.6 10 ^3/uL (0.4-5.4); Lymphocytes % (auto) 3.8 % (10.0-50.0); Mean Corpuscular Hgb Conc. 34.8 g/dL (32.0-36.0); Monocytes # (auto) 0.7 10 ^3/uL (0-1.3); Monocytes % (auto) 4.7 % (0.0-12.0); Neutrophils # (auto) 14.4 10 ^3/uL (1.6-8.6); Neutrophils % (auto) 91.3 % (37.0-80.0); Nucleated Red Blood Cells % 0.1 %; Platelet Count (auto) 226 10^3/uL (140-450); Red Blood Cells 4.45 10^6/uL (4.0-5.20); Red Cell Distribution Width 13.5 % (11.8-14.3); White Blood Cell 15.8 10^3/uL (4.4-10.8)
[2024-11-14 06:47] LABS: Alanine Aminotransferase 11 U/L (7-40); Alkaline Phosphatase 75 U/L (46-116); Anion Gap 10 (5-15); Blood Urea Nitrogen 20 mg/dL (9-23); Carbon Dioxide 28 mmol/L (20-31); Chloride 100 mmol/L (98-107); Magnesium 2.1 mg/dL (1.6-2.6); Potassium 4.2 mmol/L (3.5-5.1); Sodium 138 mmol/L (136-145); Total Protein 6.7 g/dL (5.7-8.2)
[2024-11-14 06:48] LABS: Albumin 4.5 g/dL (3.2-4.8)
[2024-11-14 06:49] LABS: Aspartate Aminotransferase 9 U/L (13-40); Bilirubin, Total 0.5 mg/dL (0.2-1.0); Glucose 173 mg/dL (74-106)
--- NOTE | 2024-11-14 07:04 | DVHPN2 ---
Progress Note - Dictate Date Seen: Nov 14, 2024 Medical Necessity Reason Pt with a Central, PICC or Fol: No vital signs Vital Sign Date Time Temp Pulse Resp B/P (MAP) Pulse Ox O2 Delivery O2 Flow Rate FiO2 11/14/24 06:52 137/71 11/14/24 05:00 97.4 84 22 92 97.4 11/13/24 20:00 Nasal Cannula* 3 32 Total Intake and Output 11/13/24 11/13/24 11/14/24 15:00 23:00 07:00 Intake Total 610 ml 1080 ml 720 ml Balance 610 ml 1080 ml 720 ml medications Current Medications Medications Dose Ordered Sig/Mayela Route Start Time Stop Time Status Last Admin Dose Admin Acetaminophen/ Hydrocodone Bitart 1 tab Q4HP PRN PO 11/11/24 13:30 11/12/24 21:15 1 TAB Enoxaparin Sodium 40 mg DAILY SC 11/12/24 10:00 11/13/24 09:09 40 MG Acetaminophen 650 mg Q6HP PRN PO 11/11/24 13:30 11/13/24 22:03 650 MG Morphine Sulfate 2 mg Q4HPRN PRN IV 11/11/24 13:30 Nitroglycerin 0.4 mg Q5MINP PRN SL 11/11/24 13:30 Morphine Sulfate 2 mg Q30M PRN IV 11/11/24 13:30 Atorvastatin Calcium 20 mg HS PO 11/11/24 22:00 11/13/24 21:06 20 MG Metoprolol Tartrate 25 mg BID PO 11/11/24 22:00 11/13/24 21:07 25 MG Morphine Sulfate 2 mg Q4HPRN PRN IV 11/11/24 15:15 Furosemide 20 mg BIDD IV 11/11/24 18:00 11/14/24 06:52 20 MG Methylprednisolone Sodium Succinate 40 mg Q6HR IV 11/12/24 14:30 11/14/24 06:52 40 MG Azithromycin 250 ml @ 125 mls/hr DAILY IV 11/12/24 14:30 11/13/24 09:08 125 MLS/HR Albuterol 2.5 mg Q6HWA NEB 11/12/24 18:00 11/13/24 19:44 2.5 MG Ipratropium [place] 0.5 mg Q6HWA NEB 11/12/24 18:00 11/13/24 19:45 0.5 MG Zolpidem Tartrate 5 mg HSPRN PRN PO 11/12/24 16:00 11/13/24 20:34 5 MG Guaifenesin 200 mg Q4HP PRN PO 11/13/24 20:15 11/14/24 06:51 200 MG laboratory and microbiology Laboratory Tests 11/14/24 04:50 Test 11/14/24 04:50 Range/Units Serum Glucose 173 H 74-106 mg/dL Assessment/Plan Patient is a 64-year-old female who presented with few weeks of shortness of breaths/cough and leg edema. She also complained of dyspnea on exertion. She was at [facility] few weeks back. Mentions she did not improve and decided to come to this hospital. Prior to these episodes she denies any previous cardiac problem. In our emergency room, oxygen saturation was found to be low at 80% on room air. It is of note that the patient does have chronic COPD and have been smoking for long-term. There has been question about heart failure and cardiology is involved. Patient herself denies any previous knowledge of heart problem. Denies previously being diagnosed with heart failure. Denies chest pains. Does have limited exertional capacity for long time. Not in acute distress, lying flat in bed. No JVD. Mucosa is pink and wet. There is no carotid bruit. No goiter. Not using accessory muscles of breathing. Scattered rhonchi in the lungs is heard. Cardiac: Regular, no thrill/gallop. Abdomen is soft. There was no gross mass/hepatomegaly. Bowel sound is positive. Extremities reveal 2+ edema bilaterally. Dorsalis pedis is 2+ Past medical history includes COPD, hypertension, hyperlipidemia, morbid obesity, history of prediabetes, active cigarette smoking, daily use of alcohol, pulmonary nodule, status post cholecystectomy/tonsillectomy/tubal ligation and old history of ectopic pregnancies. Echocardiogram of June 2019 had revealed concentric left ventricular hypertrophy, normal valves, ejection fraction of 60% and right ventricular systolic pressure of 30 mm Hg Echocardiogram of October 27, 2024 (performed in [facility]) reported ejection fraction of 60-65%, mild increase in left ventricular thickness, stage I diastolic dysfunction, mild MR/TR/PI Nuclear stress test of October 28, 2024 (performed in [facility]) reported no ischemia/normal wall motion and ejection fraction of 64% Creatinine: 0.78 - 0.75 - 0.77 Potassium: 4.1 - 4.3 - 4.2 Troponin (high sensitive): < 3 - 3 - 3 BNP: 41.62 D-dimer: 0.33 (wnl) CRP: 0.27 ESR: 9 U/A: non-revealing Chest x-ray reported: IMPRESSION: 1. No acute intrathoracic process. 2. Thoracic spondylosis and scoliosis. Venous duplex of lower ext: IMPRESSION: NO SONOGRAPHIC EVIDENCE FOR DEEP VENOUS THROMBOSIS IN THE BILATERAL LOWER EXTREMITY VEINS. CT of chest revealed: IMPRESSION: No acute intrathoracic abnormality. EKG reveals NSR with non-specific ST T changes Echocardiogram revealed: Left ventricle: Mild concentric left ventricular hypertrophy was seen. LVEF was around 60%. There was no gross wall motion abnormality. Right ventricle: Right ventricle was mildly dilated with normal systolic function. Left atrium was normal-sized. Right atrium was mildly dilated. Aortic valve: Aortic valve was trileaflet. There was no aortic insufficiency/stenosis. There was trace mitral/tricuspid regurgitation. Pulmonary valve was not well visualized. Right ventricular systolic pressure was assessed at 29 mm Hg. There was no echocardiographic evidence for pulmonary hypertension. IVC was normal-sized with normal respiratory variation. There was no pericardial effusion. Patient is a 64-year-old female who presented with shortness of breaths/cough/leg edema and dyspnea on exertion. Presentation questions acute heart failure versus COPD exacerbation. Patient denies previously reported heart failure. Does have acute respiratory failure. There is question about chronic respiratory failure because of long-term smoking. Pulmonary is following. Eventhough the BNP is normal, component of acute on chronic D-CHF cannot be ruled out. Acute respiratory failure COPD exacerbation Questionable acute on chronic diastolic heart failure Tobacco dependence Morbid obesity Alcohol use/abuse History of pulmonary nodules Cardiac suggestion for management: Manage on telemetry Gentle diuresis Follow-up electrolytes and kidney function tests and correct abnormalities Oxygen supplementation Pulmonary is following Cardiac garcia, stable Further evaluation and management depends on the above and clinical course A total of 55 minutes was spent reviewing the patient record, examining the patient, making a diagnostic and therapeutic plan, discussing this plan with medical personnel, following up on diagnostic studies and following the patient for clinical stability excluding any and all procedures. At least 50% of this time was spent in direct, [id number] contact. Thank you for allowing me to participate in this patient's care. Further recommendations will depend on patient's clinical course. Please do not hesitate to contact me if you have any questions or concerns. This medical document was created using electronic medical record system with [employer] computerized dictation system. Although this document has been carefully reviewed, there may still be some phonetic and typographical errors. These areas are purely typographical due to the imperfection of the software programs, and do not reflect any compromise in the patient's medical care Plan discussed with: Patient, Other (nurse) SHEILA SANTOS MD Nov 14, 2024 07:04
[2024-11-14] MEDS ORDERED: FURO1TAB33 PO (10:36)
[2024-11-14] MEDS ORDERED: ALBU108A5 INH (10:36)
[2024-11-14] MEDS ORDERED: LEVO500T91 PO (10:36)
--- NOTE | 2024-11-14 10:37 | DVHDS2 ---
Discharge Summary Date of Admission Nov 11, 2024 at 13:23 Date of Discharge: Nov 14, 2024 Admitting Diagnosis Acute hypoxic respiratory failure Labs/Diagnostic Data: Laboratory Results Test 11/14/24 04:50 11/12/24 05:54 11/11/24 20:30 11/11/24 18:21 White Blood Count 15.8 10^3/uL (4.4-10.8) Red Blood Count 4.45 10^6/uL (4.0-5.20) Hemoglobin 14.7 g/dL (12.2-16.2) Hematocrit 42.3 % (36.0-46.0) Mean Corpuscular Volume 95.0 fL (80.0-100.0) Mean Corpuscular Hemoglobin 33.0 pg (28.0-32.0) Mean Corpuscular Hemoglobin Concent 34.8 g/dL (32.0-36.0) Red Cell Distribution Width 13.5 % (11.8-14.3) Platelet Count 226 10^3/uL (140-450) Mean Platelet Volume 8.3 fL (6.9-10.8) Neutrophils (%) (Auto) 91.3 % (37.0-80.0) Lymphocytes (%) (Auto) 3.8 % (10.0-50.0) Monocytes (%) (Auto) 4.7 % (0.0-12.0) Eosinophils (%) (Auto) 0.0 % (0.0-7.0) Basophils (%) (Auto) 0.2 % (0.0-2.0) Neutrophils # (Auto) 14.4 10 ^3/uL (1.6-8.6) Lymphocytes # (Auto) 0.6 10 ^3/uL (0.4-5.4) Monocytes # (Auto) 0.7 10 ^3/uL (0-1.3) Eosinophils # (Auto) 0 10 ^3/uL (0-0.8) Basophils # (Auto) 0 10 ^3/uL (0-0.2) Nucleated Red Blood Cells 0.1 % Sodium Level 138 mmol/L (136-145) Potassium Level 4.2 mmol/L (3.5-5.1) Chloride Level 100 mmol/L (98-107) Carbon Dioxide Level 28 mmol/L (20-31) Anion Gap 10 (5-15) Blood Urea Nitrogen 20 mg/dL (9-23) Creatinine 0.77 mg/dL (0.550-1.02) Glomerular Filtration Rate Calc 85 mL/min (>90) BUN/Creatinine Ratio 26.0 (10.0-20.0) Serum Glucose 173 mg/dL (74-106) Hemoglobin A1c 5.8 % A1C (<5.7) Calcium Level 10.0 mg/dL (8.7-10.4) Magnesium Level 2.1 mg/dL (1.6-2.6) Total Bilirubin 0.5 mg/dL (0.2-1.0) Aspartate Amino Transferase (AST) 9 U/L (13-40) Alanine Aminotransferase (ALT) 11 U/L (7-40) Alkaline Phosphatase 75 U/L (46-116) Total Protein 6.7 g/dL (5.7-8.2) Albumin 4.5 g/dL (3.2-4.8) Hepatitis B Surface Antigen Negative (Negative) Hepatitis C Antibody Negative (Negative) Troponin I High Sensitivity 3 ng/L (</=34) Erythrocyte Sedimentation Rate 9 mm/hr (0-20) D-Dimer, Quantitative 0.33 mg/L FEU (0.0-0.49) Test 11/11/24 16:26 11/11/24 11:42 11/11/24 11:14 Blood Gas Specimen Type Arterial Blood Gas Sample Site Left radial Blood Gas Patient Temperature 37.0 Arterial Blood Date Drawn [id number] Arterial Blood pH 7.424 (7.350-7.450) Arterial Blood Partial Pressure CO2 37.5 mmHg (32.0-45.0) Arterial Blood Partial Pressure O2 64.6 mmHg (83.0-108.0) Arterial Blood HCO3 24.0 mmol/L (21.0-28.0) Arterial Blood Oxygen Saturation 92.4 % (94.0-98.0) Arterial Blood Base Excess -0.1 mmol/L (-2.0-3.0) Arterial Blood Oxyhemoglobin 90.6 % (94.0-98.0) Arterial Blood Carboxyhemoglobin 1.4 % (0.5-1.5) Arterial Blood Methemoglobin 0.5 % (0.0-1.5) Harish Test Yes Blood Gas Total Hemoglobin 15.10 g/dL (12.0-16.0) Blood Gas Liter Flow 2.00 Blood Gas Modality Nasal cannula FiO2 % 28.0 Urine Color Colorless (Yellow) Urine Clarity Clear (Clear) Urine pH 7.0 (5.0-9.0) Urine Specific [place] 1.006 (1.001-1.035) Urine Protein Negative (Negative) Urine Ketones Negative (Negative) Urine Blood Negative /uL (Negative) Urine Nitrite Negative (Negative) Urine Bilirubin Negative (Negative) Urine Urobilinogen Normal mg/dL (Negative) Urine Leukocyte Esterase Negative /uL (Negative) Urine RBC <1 /hpf (0 - 4) Urine Microscopic WBC 2 /HPF (0-5) Urine Squamous Epithelial Cells Few /hpf (<5) Urine Bacteria None seen /hpf (None Seen) Urine Glucose Normal mg/dL (Normal) C-Reactive Protein High Sensitivity 0.27 mg/dL (<1.0) B-Type Natriuretic Peptide 41.62 pg/mL (0-100) Other Laboratory Tests 11/14/24 04:50 Brief Hx & Hospital Course: 64-year-old female presents with a chief complaint of SOB and cough x "few weeks" with edema to her bilateral legs. Patient states that she was seen at [facility] x 2 weeks ago and was given IV Lasix for her SOB and edema. Patient reports that since being discharged, her SOB has been worsening, especially with exertion. Patient is sating at 80% on room air, was placed on 4L NC and is now at 93%. Patient denies any chest pain. Patient was admitted for acute hypoxic respiratory failure related to COPD exacerbation patient was given IV antibiotics med neb treatments and pulmonary status did improve. Patient did not qualify for home O2 as Pa O2 is 56. Home health was ordered for PT however patient did not qualify. Patient will be sent home with levofloxacin 500 x 7 days, Medrol [place], and Lasix 20 mg. Patient will need to follow up with her PCP within one week of discharge. Patient was counseled to stop drinking. Patient was in agreement with discharge Condition at Discharge: Fair Final Diagnosis/Problems List 1. Acute hypoxic respiratory failure 2. COPD exacerbation 3. Smoker Monitor, smoking cessation 4. ETOH Abuse Monitor 5. Obesity 6. GERD Discharge Disposition: Home Discharge Instruct/Medications Diet: Cardiac 2g Na,low cholest Activity: No Restrictions, As Tolerated Follow Up/Referral: PCP WITHIN 1 WEEK Discharge Statement: "Patient was advised to return to the ER or call 911 if any headaches, dizziness, shortness of breath, chest pain, abdominal pain, bleeding, fevers, or worsening of medical condition. Patient was counseled about treatment plan, medications, possible side effects, patientverbalized understanding. All questions were answered to the best of my ability. This discharge took greater then 30 minutes in planning, reviewing documentation, counseling the patient, and discussing with other team members." ASSESSMENT ASSESSMENT Assessment 1. Acute hypoxic respiratory failure 2. COPD exacerbation 3. Smoker Monitor, smoking cessation 4. ETOH Abuse Monitor 5. Obesity 6. GERD KISHAN LINDSEY Nov 14, 2024 10:37
--- NOTE | 2024-11-14 10:57 | DVH ---
INDICATION: f/u TECHNIQUE: Frontal view of the chest. COMPARISON: None FINDINGS: . The heart and mediastinal contours are grossly unremarkable. There is no evidence of pleural disea se. The lungs are clear. The bony structures of the chest are intact without fracture. IMPRESSION: 1. No evidence of acute disease.
[2024-11-14 15:32] LABS: Base Excess 4.7 mmol/L (-2.0-3.0)
[2024-11-14] MEDS ORDERED: METH4PAK PO (17:20)
--- NOTE | 2024-11-14 23:03 | DVHPN2 ---
Progress Note - Dictate Date Seen: Nov 14, 2024 Medical Necessity Reason Pt with a Central, PICC or Fol: No Subjective Patient seen and examined at bedside. Remains on supplemental oxygen Overnight events reviewed. vital signs Vital Sign Date Time Temp Pulse Resp B/P (MAP) Pulse Ox O2 Delivery O2 Flow Rate FiO2 11/14/24 17:53 73 18 100 11/14/24 17:47 Room Air* 0 21 11/14/24 16:33 98.1 11/14/24 16:30 125/81 (96) Total Intake and Output 11/13/24 11/13/24 11/14/24 15:00 23:00 07:00 Intake Total 610 ml 1080 ml 720 ml Balance 610 ml 1080 ml 720 ml objective Gen.: Patient lying in bed in no apparent distress. On supplemental oxygen. Head: Normocephalic, atraumatic. Eyes: EOMI/PERRLA. Ears: Normal hearing. Normal anatomy. Neck/trachea: Trachea midline, supple. Nose: Normal external anatomy. Mouth: Moist mucous membranes. Chest: Decreased air entry bilaterally. Wheezing improving. No rhonchi. Cardiovascular: Positive S1, positive S2. Regular rate and rhythm. Abdomen: Positive bowel sounds in all 4 quadrants. Soft, non-tender, non- distended. : Deferred. Rectal: Deferred. Skin: Warm, dry. Intact. Extremities: 2+ radial pulses bilaterally. No lower extremity edema. Neuro: Awake, alert, oriented x3. No gross motor or sensory deficits. Cranial nerves II through XII intact. Gait not assessed. laboratory and microbiology Laboratory Tests 11/14/24 04:50 Test 11/14/24 04:50 Range/Units Serum Glucose 173 H 74-106 mg/dL Assessment/Plan Impression: Acute hypoxic respiratory failure Acute exacerbation of COPD COPD/Emphysema, mild Smoker/Nicotine dependence Obesity BMI 30.6 Acute on chronic diastolic heart failure Thoracic Scoliosis/Spondylosis Events: Remains on supplemental oxygen, 3 LPM NC Taper O2 as tolerated Chest x-ray reviewed, no acute abnormalities. Continue bronchodilators Continue IV steroids Continue antibiotics Antitussive for cough Monitor ins/outs Monitor renal function Monitor electrolytes. Supplement as necessary Lovenox for DVT ppx Patient is stable for discharge from the pulmonary standpoint. Follow up in 1-2 weeks in Pulmonary Clinic. Labs and imaging reviewed. Rest of plan as noted below. Plan: Supplemental oxygen Keep o2 sat above 92% Bronchodilators IV Steroids Echo reviewed; LVEF was around 60%. RVSP 29 mmHg. No e/o pulmonary hypertension. Cardiology recommendations appreciated Diurese to euvolemia Monitor ins/outs Monitor renal function Monitor electrolytes Supplement as necessary Smoking cessation discussed for greater than 10 minutes. Obesity complicates all care. Diet and lifestyle modifications for weight reduction. DVT prophylaxis-Lovenox Prognosis: Guarded given patient's multiple co-morbidities. Rest of plan per hospitalist and other consultants. Thank you, ALEJANDRA Gomez, for allowing me to participate in this patient's care. Further recommendations will depend on the patient's clinical course. Please do not hesitate to contact me if you have any questions or concerns. This medical document was created using an electronic medical record system with [employer] dictation system. Although these documentations are being carefully reviewed, there may still be some phonetic and typographical changes. The errors are purely typographical, due to imperfection on the software program, and do not reflect any compromise in the patient's medical care. Plan discussed with: Patient, Other (REENA Velazco) GERALDO CLEMONS MD Nov 14, 2024 23:03
== END 2024-11-14 18:05 | disposition home or self-care (01) | DRG 189 ==
LOC: ER 10:46 → OVERFLOW 13:23 → TELE-WESTW 17:17
PROVIDERS: ADMIT Nurse Practitioner; ATTEND Nurse Practitioner
DX: J96.01 Acute respiratory failure with hypoxia (principal); J44.1 Chronic obstructive pulmonary disease with (acute) exacerbation; I11.0 Hypertensive heart disease with heart failure; J43.9 Emphysema, unspecified; M47.814 Spondylosis without myelopathy or radiculopathy, thoracic region; I50.9 Heart failure, unspecified; K21.9 Gastro-esophageal reflux disease without esophagitis; F17.210 Nicotine dependence, cigarettes, uncomplicated; F10.10 Alcohol abuse, uncomplicated; E78.5 Hyperlipidemia, unspecified; E66.01 Morbid (severe) obesity due to excess calories; M41.84 Other forms of scoliosis, thoracic region; Z68.30 Body mass index [BMI] 30.0-30.9, adult; Z79.2 Long term (current) use of antibiotics; Z79.899 Other long term (current) drug therapy; Z90.49 Acquired absence of other specified parts of digestive tract; Z83.3 Family history of diabetes mellitus; Z82.3 Family history of stroke; Z79.82 Long term (current) use of aspirin; Z79.51 Long term (current) use of inhaled steroids; Y90.9 Presence of alcohol in blood, level not specified
CPT/HCPCS: 36415; 36600; 71045; 71046; 71250; 80048; 80053; 81001; 82805; 83036; 83735; 83880; 84484; 85025; 85379; 85652; 86141; 86803; 87081; 87340; 93005; 93306; 93970; 94640; 96374; 97163; 99291; G0378

== ENCOUNTER 2025-01-25 09:06 | Inpatient (IN) | payer OTHER ==
[~2025-01-25] VITALS: Ht 160 cm; Wt 90.6 kg
[2025-01-25] VITALS (8 sets, daily range): BP systolic 132–148; BP diastolic 69–71; PULSE 69–102; RESP 17–20; TEMP 97.7–97.9; O2SAT 90–100
[~2025-01-25 09:06] MED LIST changes: -ALBUAER3 IN; +AMLO1TAB22 PO; +ASPI1TAB20 PO; -ATOR20TA50 PO; +ATOR40TA52 PO; -AZIT-43 PO; -FAMO20TA10 PO; -FLUT250M2 INH; +FURO1TAB33 PO; +LEVO500T91 PO; +LOSA-534 PO; -MET25T PO; +METH4PAK PO; +METO25TA93 PO; -OME20T PO; +PANT40TA2 PO; -PRED20TA2 PO
--- NOTE | 2025-01-25 10:07 | ED.PDOC ---
SOB-HPI HPI Comments 64 y/o F, with PMHx of COPD, HTN, and HLD presents to the ED for CC of shortness of breath. Patient states, she has been experiencing shortness of breath with associated symptoms of cough and sore-throat onset, this morning (01/25/25). Patient relays, she is on continuous oxygen at 3.5L via NC at home however, experiences no relief despite usage. Patient has notable BLE swelling, which she endorses having for xmonths. Patient denies chest pain, palpitations, dizziness, nasal congestion, body-aches, or headache. No other symptoms or modifying factors present at this time. 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 History: Ectopic Family History Family History: Family hx of DM, Family hx of heart lorelei Social History Smoker: Cigarettes Alcohol: Occasionally Drugs: Denies Drug Use Lives In: Home Constitutional: denies: chills, diaphoresis, fatigue, fever, malaise, sweats, weakness, others EENTM: reports: others (sore-throat); denies: blurred vision, double vision, ear bleeding, ear discharge, ear drainage, ear pain, ear ringing, eye pain, eye redness, hearing loss, mouth pain, mouth swelling, nasal discharge, nose bleeding, nose congestion, nose pain, photophobia, tearing, throat pain, throat swelling, voice changes Respiratory: reports: cough, shortness of breath; denies: hemoptysis, orthopnea, SOB at rest, SOB with excertion, stridor, wheezing, others Cardiovascular: denies: chest pain, dizzy spells, diaphoresis, Dyspnea on exertion, edema, irregular heart beat, left arm pain, lightheadedness, palpitations, PND, syncope, others Gastrointestinal: denies: abdomen distended, abdominal pain, blood streaked bowels, constipated, diarrhea, dysphagia, difficulty swallowing, hematemesis, melena, nausea, poor appetite, poor fluid intake, rectal bleeding, rectal pain, vomiting, others Genitourinary: denies: abnormal vagina bleeding, burning, dyspareunia, dysuria, flank pain, frequency, hematuria, incontinence, pain, , vagina discharge, urgency, others Neurological: denies: dizziness, fainting, headache, left sided numbness, left sided weakness, numbness, paresthesia, pre-existing deficit, right sided numbness, right sided weakness, seizure, speech problems, tingling, tremors, weakness, others Musculoskeletal: denies: back pain, gout, joint pain, joint swelling, muscle pain, muscle stiffness, neck pain, others Integumetry: denies: bruises, change in color, change in hair/nails, dryness, laceration, lesions, lumps, rash, wounds, others Allergic/Immunocompromised: denies: Difficulty Healing, Frequent Infections, Hives, Itching, others Hematologic/Lymphatic: denies: anemia, blood clots, easy bleeding, easy bruising, swollen glands, others Endocrine: denies: excessive hunger, excessive sweating, excessive thirst, excessive urination, flushing, intolerance to cold, intolerance to heat, unexplained weight gain, unexplained weight loss, others Psychiatric: denies: anxiety, bipolar disorder, depression, hopeless, panic disorder, schizophrenia, sleepless, suicidal, others All Other Systems: Reviewed and Negative Physical Exam General Appearance: Moderate Distress HEENT: Normal ENT Inspection, Pharynx Normal, TMs Normal Neck: Full Range of Motion, Non-Tender, Normal, Normal Inspection Respiratory: Wheezing Cardiovascular: No Edema, No JVD, No Murmur, No Gallop, Normal Peripheral Pulses, Regular Rate/Rhythm Breast Exam: Deferred Gastrointestinal: No Organomegaly, Non Tender, No Pulsatile Mass, Normal Bowel Sounds, Soft Genitalia: Deferred Pelvic: Deferred Rectal: Deferred Extremities: Pedal edema, Swelling (Bilateral lower extremity) Musculoskeletal : Apperance: Normal 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 Was a procedure done?: No Differential Dx Differential Diagnosis: Anxiety, Asthma, Bronchitis, CHF, COPD, Pulmonary Embolism X-Ray, Labs, Meds, VS Vital Signs Date Time Temp Pulse Resp B/P (MAP) Pulse Ox O2 Delivery O2 Flow Rate FiO2 01/25/25 10:23 19 97 Nasal Cannula* 3 32 01/25/25 10:09 148/69 01/25/25 09:41 97.9 79 17 148/69 (95) 96 97.9 01/25/25 09:41 79 16 96 Nasal Cannula 3.0 01/25/25 09:39 Nasal Cannula* 3 32 01/25/25 09:12 75 01/25/25 09:06 95 Nasal Cannula* 3 32 01/25/25 09:06 97.9 78 22 118/69 90 97.9 Lab Test 01/25/25 10:37 Range/Units White Blood Count 9.2 4.4-10.8 10^3/uL Red Blood Count 4.47 4.0-5.20 10^6/uL Hemoglobin 14.7 12.2-16.2 g/dL Hematocrit 43.4 36.0-46.0 % Mean Corpuscular Volume 97.0 80.0-100.0 fL Mean Corpuscular Hemoglobin 33.0 H 28.0-32.0 pg Mean Corpuscular Hemoglobin Concent 34.0 32.0-36.0 g/dL Red Cell Distribution Width 15.8 H 11.8-14.3 % Platelet Count 274 140-450 10^3/uL Mean Platelet Volume 7.2 6.9-10.8 fL Neutrophils (%) (Auto) 61.8 37.0-80.0 % Lymphocytes (%) (Auto) 14.7 10.0-50.0 % Monocytes (%) (Auto) 8.9 0.0-12.0 % Eosinophils (%) (Auto) 13.3 H 0.0-7.0 % Basophils (%) (Auto) 1.3 0.0-2.0 % Neutrophils # (Auto) 5.7 1.6-8.6 10 ^3/uL Lymphocytes # (Auto) 1.4 0.4-5.4 10 ^3/uL Monocytes # (Auto) 0.8 0-1.3 10 ^3/uL Eosinophils # (Auto) 1.2 H 0-0.8 10 ^3/uL Basophils # (Auto) 0.1 0-0.2 10 ^3/uL Nucleated Red Blood Cells 0.0 % Sodium Level Pending Potassium Level Pending Chloride Level Pending Carbon Dioxide Level Pending Anion Gap Pending Blood Urea Nitrogen Pending Creatinine Pending Glomerular Filtration Rate Calc Pending BUN/Creatinine Ratio Pending Serum Glucose Pending Calcium Level Pending Troponin I High Sensitivity Pending B-Type Natriuretic Peptide Pending Current Medications Medications (Trade) Dose Ordered Sig/Mayela Route Start Time Stop Time Status Last Admin Methylprednisolone Sodium Succinate (Solu Medrol) 125 mg ONCE ONCE IV 01/25/25 10:00 01/25/25 10:01 DC 01/25/25 10:09 Albuterol (Ventolin Medneb) 5 mg ONCE ONCE NEB 01/25/25 10:00 01/25/25 10:01 DC 01/25/25 10:23 Ipratropium [place] (Atrovent Medneb) 0.5 mg ONCE ONCE NEB 01/25/25 10:00 01/25/25 10:01 DC 01/25/25 10:23 Magnesium Sulfate/ Dextrose 100 ml @ 100 mls/hr ONCE ONCE IV 01/25/25 10:00 01/25/25 10:59 DC 01/25/25 10:08 Furosemide (Lasix Injection) 40 mg ONCE ONCE IV 01/25/25 10:00 01/25/25 10:01 DC 01/25/25 10:09 [place] [id number] Ph: [phone] DIAGNOSTIC IMAGING Diagnostic Imaging Report : [id number] Signed PATIENT: BRENDAN SERNA ACCT: [id number] UNIT: [id number] : 1960 LOC: ER ROOM / BED: / AGE / SEX: 64 / F ADM STATUS: REG ER SERVICE 4 ORDERING PHYSICIAN: NYLA FERREIRA MD PROCEDURE(s): CXRP - CHEST PORTABLE REASON: sob ORDER NUMBER(s): [id number], ACCESSION NUMBER(s): [id number] INDICATION: sob TECHNIQUE: Frontal view of the chest. COMPARISON: XY CHEST PORTABLE on DOS: 11/14/24, CT CHEST WITHOUT CONTRAST on DOS: 11/12/24, XY CHEST TWO VIEWS ROUTINE on DOS: 11/11/24 FINDINGS: . The heart and mediastinal contours are grossly unremarkable. There is no evidence of pleural disease. The lungs are clear. The bony structures of the chest are intact without fracture. IMPRESSION: 1. No evidence of acute disease. ATED BY: DESIREE DONG MD DICTATED DATE/TIME: 01/25/25 1019 SIGNED BY: DESIREE DONG MD SIGNED DATE/TIME: 01/25/25 1019 CC: Patient alert. Complaining of shortness a breath. Bilateral lower extremity swelling. Placed on oxygen. Continues to smoke cigarettes pain Possible CHF. Was given Lasix. Possible pneumonitis. Chest x-ray reviewed does not show any acute changes. Was given steroid. Was given breathing treatment. Reviewed her previous visit. Explained to the patient. Continue monitoring. Time of 1ST Reevaluation: 10:20 Reevaluation 1ST: Unchanged Patient Education/Counseling: Diagnosis, Treatment Family Education/Counseling: No Family Present SEPSIS Sepsis Screen Date sepsis recognized/suspect: Jan 25, 2025 Time Sepsis recognized/suspect: 905 Recent Procedure: No On Antibiotic Therapy: No Respiratory Rate >20: Yes Heart Rate >90: No Temp<36 C (96.8 F) or >38.3 C: No SBP <90 or MAP <65 mmHG: No New Acute Mental Status Change: No Is the patient on CPAP, BIPAP,: No Physician Orders Electrocardigram (01/25/25 09:19) Troponin-I Hs (01/25/25 09:55) B-Type Natriuretic Peptide (01/25/25 09:55) Chest Portable (01/25/25 09:55) Urinalysis (01/25/25 09:55) Basic Metabolic Panel (01/25/25 09:55) Troponin-I Hs (01/25/25 10:55) Troponin-I Hs (01/25/25 12:55) Vital Signs Date Time Temp Pulse Resp B/P (MAP) Pulse Ox O2 Delivery O2 Flow Rate FiO2 01/25/25 10:23 19 97 Nasal Cannula* 3 32 01/25/25 10:09 148/69 01/25/25 09:41 97.9 79 17 148/69 (95) 96 97.9 01/25/25 09:41 79 16 96 Nasal Cannula 3.0 01/25/25 09:39 Nasal Cannula* 3 32 01/25/25 09:12 75 01/25/25 09:06 95 Nasal Cannula* 3 32 01/25/25 09:06 97.9 78 22 118/69 90 97.9 Laboratory Tests Test 01/25/25 10:37 White Blood Count 9.2 10^3/uL (4.4-10.8) Medications Medications Dose Ordered Sig/Mayela Route Start Time Stop Time Status Last Admin Dose Admin Albuterol 5 mg ONCE ONCE NEB 01/25/25 10:00 01/25/25 10:01 DC 01/25/25 10:23 Furosemide 40 mg ONCE ONCE IV 01/25/25 10:00 01/25/25 10:01 DC 01/25/25 10:09 Ipratropium [place] 0.5 mg ONCE ONCE NEB 01/25/25 10:00 01/25/25 10:01 DC 01/25/25 10:23 Magnesium Sulfate/ Dextrose 100 ml @ 100 mls/hr ONCE ONCE IV 01/25/25 10:00 01/25/25 10:59 DC 01/25/25 10:08 Methylprednisolone Sodium Succinate 125 mg ONCE ONCE IV 01/25/25 10:00 01/25/25 10:01 DC 01/25/25 10:09 Departure 1 Departure Time of Disposition: 11:34 Impression: Primary Impression: CHF (congestive heart failure) Qualified Codes: I50.43 - Acute on chronic combined systolic (congestive) and diastolic (congestive) heart failure Additional Impressions: COPD exacerbation Acute respiratory failure Qualified Codes: J96.01 - Acute respiratory failure with hypoxia Disposition: ADMITTED INPATIENT Admit to: Med Surg Condition: Guarded Critical Care Note Critical Care Time?: Yes (90 min-critical care time only) Critical care comment: Placed on oxygen Stability Stability form required: No Heart Score Heart Score: Heart Score Response (Comments) Value History Slightly Suspicious 0 EKG Normal 0 Age >65 2 Risk Factors >3 or Hx ASHD 2 Troponin Normal limit 0 Total 4 I personally scribed for NYLA FERREIRA MD ([email or web address]) on 01/25/25 at 10:07. Electronically submitted by Alexandria Montanez ([email or web address]). I personally scribed for NYLA FERREIRA MD ([email or web address]) on 01/25/25 at 11:31. Electronically submitted by Alexandria Montanez ([email or web address]). NYLA FERREIRA MD Jan 25, 2025 10:07
[2025-01-25] MEDS: MAGNESIUM SULFATE 1GM/100ML 100 ML IV ONE (10:08)
[2025-01-25] MEDS: methylPREDNISolone SOD SUCC 125 MG/2 ML VL IV ONE (10:09)
[2025-01-25] MEDS: FUROSEMIDE 40 MG/4 ML VIAL IV ONE (10:09)
--- NOTE | 2025-01-25 10:22 | DVH ---
INDICATION: sob TECHNIQUE: Frontal view of the chest. COMPARISON: XY CHEST PORTABLE on DOS: 11/14/24, CT CHEST WITHOUT CONTRAST on DOS: 11/12/24, XY CHEST TWO VIEWS ROUTINE on DOS: 11/11/24 FINDINGS: . The heart and mediastinal contours are grossly unremarkable. There is no evidence of pleural disea se. The lungs are clear. The bony structures of the chest are intact without fracture. IMPRESSION: 1. No evidence of acute disease.
[2025-01-25] MEDS: ALBUTEROL SULF 2.5 MG/0.5ML(0.5%) NEB SOLN NEB ONE (10:23)
[2025-01-25] MEDS: IPRATROPIUM BROM 0.5 MG/2.5ML INH SOL NEB ONE (10:23)
[2025-01-25 11:22] LABS: Hematocrit 43.4 % (36.0-46.0); Hemoglobin 14.7 g/dL (12.2-16.2); Mean Corpuscular Hemoglobin 33.0 pg (28.0-32.0); Mean Corpuscular Volume 97.0 fL (80.0-100.0); Nucleated Red Blood Cells % 0.0 %
[2025-01-25 12:03] LABS: Chloride 102 mmol/L (98-107); Potassium 3.4 mmol/L (3.5-5.1); Sodium 141 mmol/L (136-145)
[2025-01-25 12:04] LABS: Anion Gap 13 (5-15); Carbon Dioxide 26 mmol/L (20-31)
[2025-01-25 12:05] LABS: Calcium 9.1 mg/dL (8.7-10.4)
[2025-01-25 12:09] LABS: BUN/Creatinine Ratio 8.5 (10.0-20.0); Glucose 169 mg/dL (74-106)
[2025-01-25 12:11] LABS: Blood Urea Nitrogen 6 mg/dL (9-23)
[2025-01-25] MEDS ORDERED: NITROGLYCERIN 0.4 MG SL TAB SL PRN (13:00)
[2025-01-25] MEDS ORDERED: MORPHINE SULFATE INJ 2 MG/ml SYRG IV PRN (13:00)
--- NOTE | 2025-01-25 13:10 | DVHHP2 ---
History of Present Illness History of Present Illness 64-year-old female with a history of COPD hypertension hyperlipidemia on 3.5 L home O2 presents to emergency room for shortness of breath. Patient reports associated productive cough with a sore throat. Patient denies any chest pain fever chills. Patient does report having some lower extremity swelling and she does take amlodipine. Review of Systems Constitutional: No: Fever, Chills, Sweats, Weakness, Malaise, Other Respiratory: Cough, Shortness of breath Cardiovascular: No: Chest Pain, Palpitations, Orthopnea, Paroxysmal Noc. Dyspnea, Edema, Lt Headedness, Other Genitourinary: No Dysuria, No Frequency, No Incontinence, No Hematuria, No Retention, No Other Allergies: Coded Allergies: NO KNOWN ALLERGIES (Unverified , 07/07/19) Medications Current Medications Medications Dose Ordered Sig/Mayela Route Start Time Stop Time Status Last Admin Dose Admin Acetaminophen/ Hydrocodone Bitart 1 tab Q4HP PRN PO 01/25/25 13:00 Enoxaparin Sodium 40 mg DAILY SC 01/26/25 10:00 Acetaminophen 650 mg Q6HP PRN PO 01/25/25 13:00 Nitroglycerin 0.4 mg Q5MINP PRN SL 01/25/25 13:00 Morphine Sulfate 2 mg Q30M PRN IV 01/25/25 13:00 Ceftriaxone Sodium 50 ml @ 100 mls/hr DAILY@09 IV 01/26/25 09:00 Azithromycin 250 ml @ 125 mls/hr DAILY IV 01/26/25 10:00 Albuterol 2.5 mg Q4HWA [facility] 01/25/25 14:00 Ipratropium [place] 0.5 mg Q4HWA [facility] 01/25/25 14:00 Budesonide 0.5 mg BID [facility] 01/25/25 22:00 Amlodipine Besylate 10 mg DAILY PO 01/26/25 10:00 Aspirin 81 mg DAILY PO 01/26/25 10:00 Furosemide 20 mg DAILY PO 01/26/25 10:00 Losartan Potassium 50 mg DAILY PO 01/26/25 10:00 Pantoprazole Sodium 40 mg DAILY PO 01/26/25 10:00 Atorvastatin Calcium 40 mg HS PO 01/25/25 22:00 Metoprolol Succinate 25 mg DAILY PO 01/26/25 10:00 Methylprednisolone Sodium Succinate 40 mg Q8H IV 01/25/25 18:00 Exam Vital Signs Vital Signs Date Time Temp Pulse Resp B/P (MAP) Pulse Ox O2 Delivery O2 Flow Rate FiO2 01/25/25 10:23 19 97 Nasal Cannula* 3 32 01/25/25 10:09 148/69 01/25/25 09:41 97.9 79 97.9 General Appearance: Alert, Oriented X3, Cooperative, No acute distress Respiratory: Other (diminished in anterior lobes) Cardiovascular: Regular rate, Normal S1, Normal S2, No murmurs Abdominal: Normal bowel sounds, No tenderness, No hepatospenomegaly Labs/Xrays Labs Test 01/25/25 12:10 01/25/25 10:37 Range/Units White Blood Count 9.2 4.4-10.8 10^3/uL Red Blood Count 4.47 4.0-5.20 10^6/uL Hemoglobin 14.7 12.2-16.2 g/dL Hematocrit 43.4 36.0-46.0 % Mean Corpuscular Volume 97.0 80.0-100.0 fL Mean Corpuscular Hemoglobin 33.0 H 28.0-32.0 pg Mean Corpuscular Hemoglobin Concent 34.0 32.0-36.0 g/dL Red Cell Distribution Width 15.8 H 11.8-14.3 % Platelet Count 274 140-450 10^3/uL Mean Platelet Volume 7.2 6.9-10.8 fL Neutrophils (%) (Auto) 61.8 37.0-80.0 % Lymphocytes (%) (Auto) 14.7 10.0-50.0 % Monocytes (%) (Auto) 8.9 0.0-12.0 % Eosinophils (%) (Auto) 13.3 H 0.0-7.0 % Basophils (%) (Auto) 1.3 0.0-2.0 % Neutrophils # (Auto) 5.7 1.6-8.6 10 ^3/uL Lymphocytes # (Auto) 1.4 0.4-5.4 10 ^3/uL Monocytes # (Auto) 0.8 0-1.3 10 ^3/uL Eosinophils # (Auto) 1.2 H 0-0.8 10 ^3/uL Basophils # (Auto) 0.1 0-0.2 10 ^3/uL Nucleated Red Blood Cells 0.0 % Sodium Level 141 136-145 mmol/L Potassium Level 3.4 L 3.5-5.1 mmol/L Chloride Level 102 98-107 mmol/L Carbon Dioxide Level 26 20-31 mmol/L Anion Gap 13 5-15 Blood Urea Nitrogen 6 L 9-23 mg/dL Creatinine 0.71 0.550-1.02 mg/dL Glomerular Filtration Rate Calc 94 >90 mL/min BUN/Creatinine Ratio 8.5 L 10.0-20.0 Serum Glucose 169 H 74-106 mg/dL Calcium Level 9.1 8.7-10.4 mg/dL B-Type Natriuretic Peptide 53.45 0-100 pg/mL SEPSIS Sepsis Screen Date sepsis recognized/suspect: Jan 25, 2025 Time Sepsis recognized/suspect: 905 Recent Procedure: No On Antibiotic Therapy: No Respiratory Rate >20: Yes Heart Rate >90: No Temp<36 C (96.8 F) or >38.3 C: No SBP <90 or MAP <65 mmHG: No New Acute Mental Status Change: No Is the patient on CPAP, BIPAP,: No Physician Orders Electrocardigram (01/25/25 09:19) Chest Portable (01/25/25 09:55) Urinalysis (01/25/25 09:55) Troponin-I Hs (01/25/25 10:55) Troponin-I Hs (01/25/25 12:55) Covid19 Antigen Olive (01/25/25 ) Rapid Influenza A&B (01/25/25 12:44) D-Dimer (01/25/25 12:45) Admit (01/25/25 12:46) 2 Gm Sodium Diet (01/25/25 Lunch) Hydrocodone-Acet 5/325mg Tab ([place] 5/32 (01/25/25 13:00) Enoxaparin Sodium (Lovenox) (01/26/25 10:00) Condition: Fair (01/25/25 12:46) Acetaminophen Tablet (Tylenol Tablet) (01/25/25 13:00) Nitroglycerin Sublingual (Ntrostat Subli (01/25/25 13:00) Morphine Sulfate Injection (01/25/25 13:00) Stat Ekg For Chest Pain (01/25/25 12:46) Notify Md Of Changes From Base (01/25/25 12:46) Off Track Betting Manager For 24 Hours (01/25/25 12:46) Emergency Dysrhythmia Protocol (01/25/25 12:46) Rhythm Strips Once Every Shift (01/25/25 12:46) Oxygen By Nasal Cannula (01/25/25 12:46) Ceftriaxone 1gm/50ml D5w (Rocephin) (01/26/25 09:00) Azithromycin 500mg/ 250ml (Zithromax 50 (01/26/25 10:00) Albuterol Medneb (Ventolin Medneb) (01/25/25 14:00) Ipratropium Medneb (Atrovent Medneb) (01/25/25 14:00) Budesonide (Inhalation) (Pulmicort) (01/25/25 22:00) Amlodipine Tablet (Norvasc Tablet) (01/26/25 10:00) Aspirin Enteric Coated Tablet (Ecotrin E (01/26/25 10:00) Furosemide Tablet (Lasix Tablet) (01/26/25 10:00) Losartan Tablet (Cozaar Tablet) (01/26/25 10:00) Pantoprazole Tablet (Protonix Tablet) (01/26/25 10:00) Metoprolol Xl Succinate (Toprol Xl) (01/26/25 10:00) Atorvastatin (Lipitor) (01/25/25 22:00) Methylprednisolone Sod Succ (Solu Medrol (01/25/25 18:00) *Consult / (01/25/25 12:56) Vital Signs Date Time Temp Pulse Resp B/P (MAP) Pulse Ox O2 Delivery O2 Flow Rate FiO2 01/25/25 10:23 19 97 Nasal Cannula* 3 32 01/25/25 10:09 148/69 01/25/25 09:41 97.9 79 17 148/69 (95) 96 97.9 01/25/25 09:41 79 16 96 Nasal Cannula 3.0 01/25/25 09:39 Nasal Cannula* 3 32 01/25/25 09:12 75 01/25/25 09:06 95 Nasal Cannula* 3 32 01/25/25 09:06 97.9 78 22 118/69 90 97.9 Laboratory Tests Test 01/25/25 10:37 White Blood Count 9.2 10^3/uL (4.4-10.8) Medications Medications Dose Ordered Sig/Mayela Route Start Time Stop Time Status Last Admin Dose Admin Albuterol 5 mg ONCE ONCE NEB 01/25/25 10:00 01/25/25 10:01 DC 01/25/25 10:23 5 MG Furosemide 40 mg ONCE ONCE IV 01/25/25 10:00 01/25/25 10:01 DC 01/25/25 10:09 40 MG Ipratropium [place] 0.5 mg ONCE ONCE NEB 01/25/25 10:00 01/25/25 10:01 DC 01/25/25 10:23 0.5 MG Magnesium Sulfate/ Dextrose 100 ml @ 100 mls/hr ONCE ONCE IV 01/25/25 10:00 01/25/25 10:59 DC 01/25/25 10:08 100 MLS/HR Methylprednisolone Sodium Succinate 125 mg ONCE ONCE IV 01/25/25 10:00 01/25/25 10:01 DC 01/25/25 10:09 125 MG Assessment/Plan Assessment/Plan Acute hypoxemic respiratory failure due to COPD exacerbation Assessment: Patient presents with worsening shortness of breath, productive cough, and sore throat, consistent with a COPD exacerbation. The patient uses 3.5 liters of oxygen at home, indicating baseline oxygen dependence. The presence of bilateral lower extremity swelling suggests possible fluid overload or right heart strain. The patient denies chest pain, fever, or chills. Given the severity of symptoms and oxygen requirements, the patient is diagnosed with acute hypoxemic respiratory failure secondary to COPD exacerbation, requiring hospital admission for management. Plan: - Admit patient to the hospital - Initiate IV antibiotics - Administer IV steroids - Consult pulmonology service - Initiate nebulizer treatments - Monitor oxygen saturation and adjust oxygen therapy as needed Hypertension Assessment: Patient has a known history of hypertension. Current blood pressure status and control are not explicitly mentioned. Plan: - Monitor blood pressure during hospital stay - Continue losartan 50 mg - Continue amlodipine 10 mg Gastroesophageal reflux disease (GERD) Assessment: Patient has a history of GERD. Current symptoms or severity are not mentioned. Plan: - Continue omeprazole 40 mg Hypokalemia Assessment: Patient is noted to have hypokalemia. The severity and cause are not specified. Plan: - Replace potassium Hyperlipidemia Assessment: Patient has a known history of hyperlipidemia. Current lipid levels and management are not discussed. Plan: -continue with atorvastatin Plan discussed with: Patient My Orders Orders - KISHAN LINDSEY CHIEF INSPECTOR Procedure Category Date Status Time Covid19 Antigen [place] LAB 01/25/25 Logged Rapid Influenza A&B LAB 01/25/25 Logged 12:44 D-Dimer LAB 01/25/25 Logged 12:45 Admit ADMIT 01/25/25 Transmitted 12:46 2 Gm Sodium Diet DIET 01/25/25 Transmitted Lunch Hydrocodone-Acet PHA 01/25/25 In Process 5/325mg Tab ([place] 13:00 Enoxaparin Sodium PHA 01/26/25 In Process (Lovenox) 10:00 Condition: Fair CARRIE 01/25/25 In Process 12:46 Acetaminophen Tablet PHA 01/25/25 In Process (Tylenol Tablet) 13:00 Nitroglycerin PHA 01/25/25 In Process Sublingual (Ntrostat 13:00 Morphine Sulfate PHA 01/25/25 In Process Injection 13:00 Stat Ekg For Chest [place]RIE 01/25/25 In Process Pain 12:46 Notify Md Of Changes [place]RIE 01/25/25 In Process From Base 12:46 Off Track Betting Manager For CARRIE 01/25/25 In Process 24 Hours 12:46 Emergency Dysrhythmia CARRIE 01/25/25 In Process Protocol 12:46 Rhythm Strips Once CARRIE 01/25/25 In Process Every Shift 12:46 Oxygen By Nasal RT 01/25/25 Transmitted Cannula 12:46 Ceftriaxone 1gm/50ml PHA 01/26/25 In Process D5w (Rocephin) 09:00 Azithromycin 500mg/ PHA 01/26/25 In Process 250ml (Zithromax 50 10:00 Albuterol Medneb PHA 01/25/25 In Process (Ventolin Medneb) 14:00 Ipratropium Medneb PHA 01/25/25 In Process (Atrovent Medneb) 14:00 Budesonide PHA 01/25/25 In Process (Inhalation) 22:00 Amlodipine Tablet PHA 01/26/25 In Process (Norvasc Tablet) 10:00 Aspirin Enteric PHA 01/26/25 In Process Coated Tablet 10:00 Furosemide Tablet PHA 01/26/25 In Process (Lasix Tablet) 10:00 Losartan Tablet PHA 01/26/25 In Process (Cozaar Tablet) 10:00 Pantoprazole Tablet PHA 01/26/25 In Process (Protonix Tablet) 10:00 Metoprolol Xl PHA 01/26/25 In Process Succinate (Toprol Xl) 10:00 Atorvastatin (Lipitor) PHA 01/25/25 In Process 22:00 Methylprednisolone PHA 01/25/25 In Process Sod Succ (Solu Medrol 18:00 *Consult CONS 01/25/25 Transmitted / 12:56 Date of Service: Jan 25, 2025 Billing Provider: LAISHA ANTHONY MD Common Visit Codes: [id number] INP/OBS CARE (MOD) KISHAN LINDSEY CHIEF INSPECTOR Jan 25, 2025 13:10
[2025-01-25] MEDS: POTASSIUM EFFERVESENT TAB 25 MEQ PO ONE (13:16)
--- NOTE | 2025-01-25 14:18 | DVHINCON2 ---
Date of service: Jan 25, 2025 Referring Physician Kishan Vann NP Reason for Consultation COPD management History of Present Illness History Source: Patient Exam Limitations: No limitations HPI Patient is a 64-year old lady with a history of COPD who presented with shortness of breath and wheezing. Was seen in the emergency room where she was admitted for acute exacerbation of COPD and pulmonology was consulted to assist in management. Home Meds Active Scripts Methylprednisolone (Medrol Dosepak) 4 Mg [place], 4 MG PO UD, #21 TAB UAD Prov:KISHAN LINDSEY [facility] 11/14/24 Furosemide (Lasix) 20 Mg Tb, 1 TAB PO DAILY for 30 Days, #30 TAB 1 Refill Prov:KISHAN LINDSEY 11/14/24 Levofloxacin Hemihydrate (LEVOFLOXACIN) 500 Mg Tab, 1 TAB PO DAILY, #7 TAB Prov:KISHAN LINDSEY [employer] 11/14/24 Albuterol Sulfate (Albuterol Sulfate Hfa) 108 Mcg/Act Aer, 2 PUFF INH Q4-6HR PRN for 16 Days, #8.5 AER Prov:KISHAN LINDSEY [facility] 11/14/24 Reported Medications Fluticasone Propionate (Nasal) (Fluticasone Propionate) 50 Mcg/Act Spr, 1 SPRAY EACHNOSTRI DAILY for 30 Days, #16 11/12/24 Aspirin (Aspir-81) 81 Mg Tab, 1 TAB PO DAILY, #30 TAB 5 Refills 11/11/24 Atorvastatin Calcium (ATORVASTATIN CALCIUM) 40 Mg Tab, 1 TAB PO DAILY, #30 TAB 5 Refills 11/11/24 Pantoprazole Sodium Sesquihydr (Protonix) 40 Mg Tab, 40 MG PO DAILY, #30 TAB 11/11/24 Metoprolol Succinate (Metoprolol Succinate Er) 25 Mg Tab, 25 MG PO DAILY for 30 Days, MG 11/11/24 Amlodipine Besylate (Amlodipine Besylate) 5 Mg Tab, 10 MG PO DAILY for 30 Days, MG 11/11/24 Losartan Potassium (Losartan Potassium) 50 Mg Tab, 1 TAB PO DAILY, #30 TAB 5 Refills 11/11/24 Past Medical History Cardiac: No pertinent Hx Pulmonary: COPD Central Nervous System: No pertinent Hx GI: No pertinent Hx Hemotology/Oncology: No pertinent Hx Hepatobiliary: No pertinent Hx Psychiatric: No pertinent Hx Musculoskeletal: No pertinent Hx Rheumotologic: No pertinent Hx Infectious Disease: No peritnent Hx ENT: No pertinent Hx Renal/: No pertinent Hx Endocrine: No pertinent Hx Dermatology: No pertinent Hx Past Surgical History: No pertinent Hx Family History: CVA, DM Patient Family History: Cerebrovascular accident (CVA) G8 MOTHER Diabetes mellitus G8 MOTHER Smoker: No Hx (Negative) Alocohol: None Drugs: None Lives with: With family Domestic Violence: Neg Review of Systems Constitutional: No symptom reported Ears, Nose, & Throat: No symptom reported Eyes: No symptom reported Pulmonary/Respiratory: Dyspnea Cardiovascular: No symptom reported Gastrointestinal: No symptom reported Genitourinary: No symptom reported Musculoskeletal: No symptom reported Skin: No symptom reported Psychiatric: No symptom reported Endocrine: No symptom reported Hemotologic/Lymphatic: No symptom reported H&P Exam Vital Signs Vital Signs Date Time Temp Pulse Resp B/P (MAP) Pulse Ox O2 Delivery O2 Flow Rate FiO2 01/25/25 13:31 97.9 69 17 148/69 97 3.0 97.9 01/25/25 10:23 Nasal Cannula* 32 General Appeara: Well developed, Well nourished, Normal Appearance Head Exam: Normal inspection Neck Exam: Normal inspection, Non-tender, Normal alignment Eye Exam: bilateral eye Normal inspection, bilateral eye PERRL, bilateral eye EOMI Ear Exam: bilateral ear Auricle normal, bilateral ear Canal normal, bilateral ear TM normal Nasal Exam: Normal inspection Mouth: Normal Inspection Pulmonary/Respiratory: Decreased breath sounds Cardiovascular/Chest: Normal inspection Peripheral Pulses: 4+ Radial (R), 4+ Radial (L), 4+ Brachial (R), 4+ Brachial (L) Abdominal Exam: Normal bowel sounds Labs/Xrays Labs Test 01/25/25 12:10 01/25/25 10:37 Range/Units Troponin I High Sensitivity < 3 L </=34 ng/L White Blood Count 9.2 4.4-10.8 10^3/uL Red Blood Count 4.47 4.0-5.20 10^6/uL Hemoglobin 14.7 12.2-16.2 g/dL Hematocrit 43.4 36.0-46.0 % Mean Corpuscular Volume 97.0 80.0-100.0 fL Mean Corpuscular Hemoglobin 33.0 H 28.0-32.0 pg Mean Corpuscular Hemoglobin Concent 34.0 32.0-36.0 g/dL Red Cell Distribution Width 15.8 H 11.8-14.3 % Platelet Count 274 140-450 10^3/uL Mean Platelet Volume 7.2 6.9-10.8 fL Neutrophils (%) (Auto) 61.8 37.0-80.0 % Lymphocytes (%) (Auto) 14.7 10.0-50.0 % Monocytes (%) (Auto) 8.9 0.0-12.0 % Eosinophils (%) (Auto) 13.3 H 0.0-7.0 % Basophils (%) (Auto) 1.3 0.0-2.0 % Neutrophils # (Auto) 5.7 1.6-8.6 10 ^3/uL Lymphocytes # (Auto) 1.4 0.4-5.4 10 ^3/uL Monocytes # (Auto) 0.8 0-1.3 10 ^3/uL Eosinophils # (Auto) 1.2 H 0-0.8 10 ^3/uL Basophils # (Auto) 0.1 0-0.2 10 ^3/uL Nucleated Red Blood Cells 0.0 % Sodium Level 141 136-145 mmol/L Potassium Level 3.4 L 3.5-5.1 mmol/L Chloride Level 102 98-107 mmol/L Carbon Dioxide Level 26 20-31 mmol/L Anion Gap 13 5-15 Blood Urea Nitrogen 6 L 9-23 mg/dL Creatinine 0.71 0.550-1.02 mg/dL Glomerular Filtration Rate Calc 94 >90 mL/min BUN/Creatinine Ratio 8.5 L 10.0-20.0 Serum Glucose 169 H 74-106 mg/dL Calcium Level 9.1 8.7-10.4 mg/dL B-Type Natriuretic Peptide 53.45 0-100 pg/mL Assessment/Plan Plan Impression Acute hypoxemic respiratory failure Acute COPD exacerbation Atelectasis Dyspnea Patient seen and examined Events Low oxygen requirements On 2 liters nasal cannula Vital signs stable Labs and imaging reviewed Management Supplemental oxygen Titrate to maintain sats 90% or above Incentive spirometry Antibiotics Bronchodilators Steroids for COPD management Monitor renal function Monitor electrolytes Supplement as needed DVT prophylaxis Plan discussed with: Patient JOSE A VELASQUEZ MD Jan 25, 2025 14:18
[2025-01-25] MEDS: ALBUTEROL SULF 2.5 MG/0.5ML(0.5%) NEB SOLN NEB SCH (14:52)
[2025-01-25] MEDS: IPRATROPIUM BROM 0.5 MG/2.5ML INH SOL NEB SCH (14:52)
[2025-01-25 15:34] LABS: COVID19 ANTIGEN SOFIA FIA NEGATIVE (NEGATIVE)
[2025-01-25] MEDS: methylPREDNISolone SOD SUCC 40 MG/ML VL IV SCH (18:00)
[2025-01-25] MEDS: BUDESONIDE (INHALATION) 0.5 MG/2 ML NEB NEB SCH (19:10)
[2025-01-25] MEDS: ATORVASTATIN 20 MG TAB PO SCH (22:03)
[2025-01-25] MEDS: ACETAMINOPHEN 325 MG TAB PO PRN (22:03)
[2025-01-25 23:47] LABS: Urine Protein, UAD Negative (Negative)
[2025-01-26] VITALS (19 sets, daily range): BP systolic 120–137; BP diastolic 56–82; PULSE 82–111; RESP 18–24; TEMP 97.9–98.2; O2SAT 90–100
[2025-01-26 07:48] LABS: Hematocrit 39.3 % (36.0-46.0); Hemoglobin 13.3 g/dL (12.2-16.2); Mean Corpuscular Hemoglobin 32.9 pg (28.0-32.0); Mean Corpuscular Volume 96.9 fL (80.0-100.0); Nucleated Red Blood Cells % 0.1 %
[2025-01-26 08:12] LABS: Anion Gap 12 (5-15); Carbon Dioxide 23 mmol/L (20-31); Chloride 101 mmol/L (98-107); Potassium 4.5 mmol/L (3.5-5.1); Sodium 136 mmol/L (136-145)
[2025-01-26 08:13] LABS: Calcium 9.1 mg/dL (8.7-10.4)
[2025-01-26 08:18] LABS: Glucose 189 mg/dL (74-106)
[2025-01-26 08:19] LABS: BUN/Creatinine Ratio 11.1 (10.0-20.0); Blood Urea Nitrogen 8 mg/dL (9-23)
[2025-01-26] MEDS: ASPirin-EC 81 mg tab PO SCH (09:32)
[2025-01-26] MEDS: ENOXAPARIN SOD 40 MG/0.4 ML SYRINGE SC SCH (09:32)
[2025-01-26] MEDS: PANTOPRAZOLE 40 MG TAB PO SCH (09:33)
[2025-01-26] MEDS: FUROSEMIDE 20 MG TAB PO SCH (09:35)
[2025-01-26] MEDS: METOPROLOL SUCCINATE XL 50 MG TAB PO SCH (09:35)
[2025-01-26] MEDS: AZITHROMYCIN 500MG/ 250ML 250 ML IV SCH (09:36)
[2025-01-26] MEDS: cefTRIAXone 1GM/50ML D5W 50 ML IV SCH (09:36)
[2025-01-26] MEDS: LOSARTAN POTASSIUM 50 MG TAB PO SCH (09:36)
--- NOTE | 2025-01-26 15:51 | DVHPN2 ---
Progress Note - Dictate Date Seen: Jan 26, 2025 Medical Necessity Reason Pt with a Central, PICC or Fol: No vital signs Vital Sign Date Time Temp Pulse Resp B/P (MAP) Pulse Ox O2 Delivery O2 Flow Rate FiO2 01/26/25 14:09 90 18 100 01/26/25 14:03 Nasal Cannula 4.0 01/26/25 14:03 36 01/26/25 13:00 98.1 131/65 (87) 98.1 Total Intake and Output 01/25/25 01/25/25 01/26/25 15:00 23:00 07:00 Intake Total 600 ml Output Total 200 ml Balance 400 ml medications Current Medications Medications Dose Ordered Sig/Mayela Route Start Time Stop Time Status Last Admin Dose Admin Acetaminophen/ Hydrocodone Bitart 1 tab Q4HP PRN PO 01/25/25 13:00 Enoxaparin Sodium 40 mg DAILY SC 01/26/25 10:00 01/26/25 09:32 40 MG Acetaminophen 650 mg Q6HP PRN PO 01/25/25 13:00 01/25/25 22:03 650 MG Nitroglycerin 0.4 mg Q5MINP PRN SL 01/25/25 13:00 Morphine Sulfate 2 mg Q30M PRN IV 01/25/25 13:00 Ceftriaxone Sodium 50 ml @ 100 mls/hr DAILY@09 IV 01/26/25 09:00 01/26/25 09:36 100 MLS/HR Azithromycin 250 ml @ 125 mls/hr DAILY IV 01/26/25 10:00 01/26/25 09:36 125 MLS/HR Albuterol 2.5 mg Q4HWA NEB 01/25/25 14:00 01/26/25 14:03 2.5 MG Ipratropium [place] 0.5 mg Q4HWA NEB 01/25/25 14:00 01/26/25 14:03 0.5 MG Budesonide 0.5 mg BID NEB 01/25/25 22:00 01/26/25 06:22 0.5 MG Amlodipine Besylate 10 mg DAILY PO 01/26/25 10:00 Aspirin 81 mg DAILY PO 01/26/25 10:00 01/26/25 09:32 81 MG Furosemide 20 mg DAILY PO 01/26/25 10:00 01/26/25 09:35 20 MG Losartan Potassium 50 mg DAILY PO 01/26/25 10:00 01/26/25 09:36 50 MG Pantoprazole Sodium 40 mg DAILY PO 01/26/25 10:00 01/26/25 09:33 40 MG Atorvastatin Calcium 40 mg HS PO 01/25/25 22:00 01/25/25 22:03 40 MG Metoprolol Succinate 25 mg DAILY PO 01/26/25 10:00 01/26/25 09:35 25 MG Methylprednisolone Sodium Succinate 40 mg Q8H IV 01/25/25 18:00 01/26/25 09:32 40 MG objective General Appearance: alert, no distress HEENT: EOMI, PERRLA, normal external inspect of ears, no icterus, no nasal drainage Neck: no carotid bruit, no jugular venous distention (JVD), no lymphadenopathy Chest: normal thorax Respiratory: clear to auscultation, normal air movement Cardiovascular: regular rate and rhythm, no diastolic murmur, no jugular venous distention (JVD), no rub, no systolic murmur Abdominal: soft, no hepatomegaly, no mass, no splenomegaly, no tenderness Genitourinary: grossly normal external Musculoskeletal: no joint tenderness, no swelling Extremities: normal pulses, no calf tenderness, no clubbing, no cyanosis, no edema Skin: no bruising, no jaundice, no rash Neurological: alert, No focal deficit laboratory and microbiology Laboratory Tests 01/26/25 06:38 Test 01/26/25 06:38 Range/Units Serum Glucose 189 H 74-106 mg/dL Problem List Acute hypoxemic respiratory failure due to COPD exacerbation Assessment: Patient presents with worsening shortness of breath, productive cough, and sore throat, consistent with a COPD exacerbation. The patient uses 3.5 liters of oxygen at home, indicating baseline oxygen dependence. The presence of bilateral lower extremity swelling suggests possible fluid overload or right heart strain. The patient denies chest pain, fever, or chills. Given the severity of symptoms and oxygen requirements, the patient is diagnosed with acute hypoxemic respiratory failure secondary to COPD exacerbation, requiring hospital admission for management. Plan: - Admit patient to the hospital - Initiate IV antibiotics - Administer IV steroids - Consult pulmonology service - Initiate nebulizer treatments - Monitor oxygen saturation and adjust oxygen therapy as needed Hypertension Assessment: Patient has a known history of hypertension. Current blood pressure status and control are not explicitly mentioned. Plan: - Monitor blood pressure during hospital stay - Continue losartan 50 mg - Continue amlodipine 10 mg Gastroesophageal reflux disease (GERD) Assessment: Patient has a history of GERD. Current symptoms or severity are not mentioned. Plan: - Continue omeprazole 40 mg Hypokalemia Assessment: Patient is noted to have hypokalemia. The severity and cause are not specified. Plan: - Replace potassium Hyperlipidemia Assessment: Patient has a known history of hyperlipidemia. Current lipid levels and management are not discussed. Plan: -continue with atorvastatin Assessment/Plan Subjective: Patient is awake and alert. Objective: Patient is on 4 liters nasal cannula. Patient was admitted for COPD exacerbation. I discussed the plan of care with the patient. Patient states she has an oxygen concentrator at home but does not feel it is working appropriately. She reports that even on maximum flow she still feels very short of breath. Patient states she sees Dr. Ozuna for Cardiology. She has bilateral lower extremity edema. Plan: Cardiology consult. Start IV diuretics for possible CHF exacerbation. Continue to wean down O? as tolerated. Plan discussed with: Patient, Other MASSIMO ARROYO NP Jan 26, 2025 15:51
[2025-01-26] MEDS ORDERED: FUROSEMIDE 20 MG TAB PO ONE (17:00)
[2025-01-26] MEDS: FUROSEMIDE 20 MG/2 ML VIAL IV ONE (17:54)
--- NOTE | 2025-01-26 18:29 | DVHPN2 ---
Progress Note - Dictate Date Seen: Jan 26, 2025 Medical Necessity Reason Pt with a Central, PICC or Fol: No vital signs Vital Sign Date Time Temp Pulse Resp B/P (MAP) Pulse Ox O2 Delivery O2 Flow Rate FiO2 01/26/25 17:54 137/80 01/26/25 17:00 98.1 98 20 100 98.1 01/26/25 14:03 Nasal Cannula 4.0 01/26/25 14:03 36 Total Intake and Output 01/25/25 01/25/25 01/26/25 15:00 23:00 07:00 Intake Total 600 ml Output Total 200 ml Balance 400 ml medications Current Medications Medications Dose Ordered Sig/Mayela Route Start Time Stop Time Status Last Admin Dose Admin Acetaminophen/ Hydrocodone Bitart 1 tab Q4HP PRN PO 01/25/25 13:00 Enoxaparin Sodium 40 mg DAILY SC 01/26/25 10:00 01/26/25 09:32 40 MG Acetaminophen 650 mg Q6HP PRN PO 01/25/25 13:00 01/25/25 22:03 650 MG Nitroglycerin 0.4 mg Q5MINP PRN SL 01/25/25 13:00 Morphine Sulfate 2 mg Q30M PRN IV 01/25/25 13:00 Ceftriaxone Sodium 50 ml @ 100 mls/hr DAILY@09 IV 01/26/25 09:00 01/26/25 09:36 100 MLS/HR Azithromycin 250 ml @ 125 mls/hr DAILY IV 01/26/25 10:00 01/26/25 09:36 125 MLS/HR Albuterol 2.5 mg Q4HWA NEB 01/25/25 14:00 01/26/25 14:03 2.5 MG Ipratropium [place] 0.5 mg Q4HWA NEB 01/25/25 14:00 01/26/25 14:03 0.5 MG Budesonide 0.5 mg BID NEB 01/25/25 22:00 01/26/25 06:22 0.5 MG Amlodipine Besylate 10 mg DAILY PO 01/26/25 10:00 01/26/25 10:00 10 MG Aspirin 81 mg DAILY PO 01/26/25 10:00 01/26/25 09:32 81 MG Losartan Potassium 50 mg DAILY PO 01/26/25 10:00 01/26/25 09:36 50 MG Pantoprazole Sodium 40 mg DAILY PO 01/26/25 10:00 01/26/25 09:33 40 MG Atorvastatin Calcium 40 mg HS PO 01/25/25 22:00 01/25/25 22:03 40 MG Metoprolol Succinate 25 mg DAILY PO 01/26/25 10:00 01/26/25 09:35 25 MG Methylprednisolone Sodium Succinate 40 mg Q8H IV 01/25/25 18:00 01/26/25 17:53 40 MG Potassium Chloride 40 meq DAILY PO 01/27/25 10:00 Furosemide 40 mg DAILY IV 01/27/25 10:00 laboratory and microbiology Laboratory Tests 01/26/25 06:38 Test 01/26/25 06:38 Range/Units Serum Glucose 189 H 74-106 mg/dL Assessment/Plan Impression Acute hypoxemic respiratory failure Acute COPD exacerbation Atelectasis Dyspnea Patient seen and examined Events Low oxygen requirements On 2 liters nasal cannula No acute events Labs and imaging reviewed Management Supplemental oxygen Titrate to maintain sats 90% or above Incentive spirometry Continue antibiotics F/u cultures Bronchodilators Steroids for COPD management Monitor renal function Monitor electrolytes Supplement as needed DVT prophylaxis Plan discussed with: Patient JOSE A VELASQEUZ MD Jan 26, 2025 18:28
[2025-01-26] MEDS: TEMAZEPAM 15 MG CAP PO PRN (22:31)
[2025-01-27] VITALS (18 sets, daily range): BP systolic 107–133; BP diastolic 52–77; PULSE 64–101; RESP 16–20; TEMP 97.7–98.5; O2SAT 90–100
[2025-01-27 07:14] LABS: Calcium 9.0 mg/dL (8.7-10.4); Chloride 104 mmol/L (98-107); Potassium 4.5 mmol/L (3.5-5.1); Sodium 139 mmol/L (136-145)
[2025-01-27 07:15] LABS: Anion Gap 8 (5-15); Carbon Dioxide 27 mmol/L (20-31)
[2025-01-27 07:21] LABS: BUN/Creatinine Ratio 13.8 (10.0-20.0); Magnesium 2.3 mg/dL (1.6-2.6)
[2025-01-27 07:22] LABS: Blood Urea Nitrogen 9 mg/dL (9-23); Glucose 175 mg/dL (74-106)
--- NOTE | 2025-01-27 09:24 | DVHPN2 ---
Progress Note - Dictate Medical Necessity Reason Pt with a Central, PICC or Fol: No vital signs Vital Sign Date Time Temp Pulse Resp B/P (MAP) Pulse Ox O2 Delivery O2 Flow Rate FiO2 01/27/25 06:47 101 20 100 01/27/25 06:36 Nasal Cannula 4.0 01/27/25 06:36 36 01/27/25 05:00 97.8 113/52 (72) 97.8 Total Intake and Output 01/26/25 01/26/25 01/27/25 15:00 23:00 07:00 Intake Total 1800 ml 1000 ml Balance 1800 ml 1000 ml medications Current Medications Medications Dose Ordered Sig/Mayela Route Start Time Stop Time Status Last Admin Dose Admin Acetaminophen/ Hydrocodone Bitart 1 tab Q4HP PRN PO 01/25/25 13:00 Enoxaparin Sodium 40 mg DAILY SC 01/26/25 10:00 01/26/25 09:32 40 MG Acetaminophen 650 mg Q6HP PRN PO 01/25/25 13:00 01/26/25 22:31 650 MG Nitroglycerin 0.4 mg Q5MINP PRN SL 01/25/25 13:00 Morphine Sulfate 2 mg Q30M PRN IV 01/25/25 13:00 Ceftriaxone Sodium 50 ml @ 100 mls/hr DAILY@09 IV 01/26/25 09:00 01/26/25 09:36 100 MLS/HR Azithromycin 250 ml @ 125 mls/hr DAILY IV 01/26/25 10:00 01/26/25 09:36 125 MLS/HR Albuterol 2.5 mg Q4HWA [facility] 01/25/25 14:00 01/27/25 06:33 2.5 MG Ipratropium [place] 0.5 mg Q4HWA NEB 01/25/25 14:00 01/27/25 06:33 0.5 MG Budesonide 0.5 mg BID NEB 01/25/25 22:00 01/27/25 06:34 0.5 MG Aspirin 81 mg DAILY PO 01/26/25 10:00 01/26/25 09:32 81 MG Losartan Potassium 50 mg DAILY PO 01/26/25 10:00 01/26/25 09:36 50 MG Pantoprazole Sodium 40 mg DAILY PO 01/26/25 10:00 01/26/25 09:33 40 MG Atorvastatin Calcium 40 mg HS PO 01/25/25 22:00 01/26/25 22:32 40 MG Metoprolol Succinate 25 mg DAILY PO 01/26/25 10:00 01/26/25 09:35 25 MG Methylprednisolone Sodium Succinate 40 mg Q8H IV 01/25/25 18:00 01/27/25 01:44 40 MG Potassium Chloride 40 meq DAILY PO 01/27/25 10:00 Temazepam 15 mg HSPRN PRN PO 01/26/25 18:45 01/26/25 22:31 15 MG Furosemide 40 mg BID IV 01/27/25 10:00 UNV objective General Appearance: alert, no distress HEENT: EOMI, PERRLA, normal external inspect of ears, no icterus, no nasal drainage Neck: no carotid bruit, no jugular venous distention (JVD), no lymphadenopathy Chest: normal thorax Respiratory: clear to auscultation, normal air movement Cardiovascular: regular rate and rhythm, no diastolic murmur, no jugular venous distention (JVD), no rub, no systolic murmur Abdominal: soft, no hepatomegaly, no mass, no splenomegaly, no tenderness Genitourinary: grossly normal external Musculoskeletal: no joint tenderness, no swelling Extremities: normal pulses, no calf tenderness, no clubbing, no cyanosis, no edema Skin: no bruising, no jaundice, no rash Neurological: alert, No focal deficit laboratory and microbiology Laboratory Tests 01/27/25 06:03 01/26/25 06:38 Test 01/27/25 06:03 Range/Units Serum Glucose 175 H 74-106 mg/dL Problem List Acute hypoxemic respiratory failure due to COPD exacerbation Assessment: Patient presents with worsening shortness of breath, productive cough, and sore throat, consistent with a COPD exacerbation. The patient uses 3.5 liters of oxygen at home, indicating baseline oxygen dependence. The presence of bilateral lower extremity swelling suggests possible fluid overload or right heart strain. The patient denies chest pain, fever, or chills. Given the severity of symptoms and oxygen requirements, the patient is diagnosed with acute hypoxemic respiratory failure secondary to COPD exacerbation, requiring hospital admission for management. Plan: - Admit patient to the hospital - Initiate IV antibiotics - Administer IV steroids - Consult pulmonology service - Initiate nebulizer treatments - Monitor oxygen saturation and adjust oxygen therapy as needed Hypertension Assessment: Patient has a known history of hypertension. Current blood pressure status and control are not explicitly mentioned. Plan: - Monitor blood pressure during hospital stay - Continue losartan 50 mg - Continue amlodipine 10 mg Gastroesophageal reflux disease (GERD) Assessment: Patient has a history of GERD. Current symptoms or severity are not mentioned. Plan: - Continue omeprazole 40 mg Hypokalemia Assessment: Patient is noted to have hypokalemia. The severity and cause are not specified. Plan: - Replace potassium Hyperlipidemia Assessment: Patient has a known history of hyperlipidemia. Current lipid levels and management are not discussed. Plan: -continue with atorvastatin Assessment/Plan Subjective: Patient is awake and alert. Objective: Patient is on 4 liters nasal cannula. Patient was admitted for COPD exacerbation. I discussed the plan of care with the patient. Patient states she has an oxygen concentrator at home but does not feel it is working appropriately. She reports that even on maximum flow she still feels very short of breath. Patient states she sees Dr. Ozuna for Cardiology. She has bilateral lower extremity edema. Plan: Cardiology consult. Start IV diuretics for possible CHF exacerbation. Continue to wean down O? as tolerated. MASSIMO ARROYO NP Jan 27, 2025 09:24
[2025-01-27] MEDS: POTASSIUM CHL 20 Meq TABLET PO SCH (09:25)
[2025-01-27] MEDS ORDERED: FUROSEMIDE 40 MG/4 ML VIAL IV SCH (10:00)
--- NOTE | 2025-01-27 10:07 | DVHINCON2 ---
Date of service: Jan 27, 2025 History of Present Illness HPI Patient is a 64-year-old female who presented to the hospital with shortness of breath/cough/social and lower extremity edema. Patient is admitted with COPD exacerbation. Does have baseline history of chronic respiratory failure and is on home oxygen. Comes to our practice as outside. Cardiology is involved for cardiac aspects of care. Home Meds Active Scripts Methylprednisolone (Medrol Dosepak) 4 Mg Payam, 4 MG PO UD, #21 TAB UAD Prov:KISHAN LINDSEY [facility] 11/14/24 Furosemide (Lasix) 20 Mg Tb, 1 TAB PO DAILY for 30 Days, #30 TAB 1 Refill Prov:KISHAN LINDSEY [facility] 11/14/24 Levofloxacin Hemihydrate (LEVOFLOXACIN) 500 Mg Tab, 1 TAB PO DAILY, #7 TAB Prov:KISHAN LINDSEY [facility] 11/14/24 Albuterol Sulfate (Albuterol Sulfate Hfa) 108 Mcg/Act Aer, 2 PUFF INH Q4-6HR PRN for 16 Days, #8.5 AER Prov:KISHAN LINDSEY [facility] 11/14/24 Reported Medications Fluticasone Propionate (Nasal) (Fluticasone Propionate) 50 Mcg/Act Spr, 1 SPRAY EACHNOSTRI DAILY for 30 Days, #16 11/12/24 Aspirin (Aspir-81) 81 Mg Tab, 1 TAB PO DAILY, #30 TAB 5 Refills 11/11/24 Atorvastatin Calcium (ATORVASTATIN CALCIUM) 40 Mg Tab, 1 TAB PO DAILY, #30 TAB 5 Refills 11/11/24 Pantoprazole Sodium Sesquihydr (Protonix) 40 Mg Tab, 40 MG PO DAILY, #30 TAB 11/11/24 Metoprolol Succinate (Metoprolol Succinate Er) 25 Mg Tab, 25 MG PO DAILY for 30 Days, MG 11/11/24 Amlodipine Besylate (Amlodipine Besylate) 5 Mg Tab, 10 MG PO DAILY for 30 Days, MG 11/11/24 Losartan Potassium (Losartan Potassium) 50 Mg Tab, 1 TAB PO DAILY, #30 TAB 5 Refills 11/11/24 Past Medical History Others Past medical history includes chronic respiratory failure on home oxygen, COPD, hypertension, hyperlipidemia, morbid obesity, history of prediabetes, active cigarette smoking, daily use of alcohol, pulmonary nodule, status post cholecystectomy/tonsillectomy/tubal ligation and old history of ectopic pregnancies. Patient Family History: Cerebrovascular accident (CVA) G8 MOTHER Diabetes mellitus G8 MOTHER 19 CHILD G8 SISTER Alocohol: None Drugs: None Review of Systems Constitutional: Weakness Pulmonary/Respiratory: Dyspnea, Cough All Other Systems 14 point review of system was performed. Relevant findings as per above and as per HPI. Otherwise negative. H&P Exam Vital Signs Vital Signs Date Time Temp Pulse Resp B/P (MAP) Pulse Ox O2 Delivery O2 Flow Rate FiO2 01/27/25 06:47 101 20 100 01/27/25 06:36 Nasal Cannula 4.0 01/27/25 06:36 36 01/27/25 05:00 97.8 113/52 (72) 97.8 General Appeara: Well developed Head Exam: Normal inspection Eye Exam: bilateral eye PERRL Nasal Exam: Normal inspection Pulmonary/Respiratory: Rhonci Cardiovascular/Chest: Edema, Regular rate, Systolic murmur Peripheral Pulses: 2+ carotid (R), 2+ carotid (L), 2+ femoral (R), 2+ femoral (L), 2+ dorsalis pedis (R), 2+ dorsalis pedis (L), 2+ Radial (R), 2+ Radial (L) Abdominal Exam: Normal bowel sounds, Soft Neuro/Mental St: Alert, Oriented Appearance: Appropriate appearance Eye contact/ Speech: Cooperative Labs/Xrays Labs Test 01/27/25 06:03 01/26/25 06:38 01/25/25 23:35 01/25/25 14:28 Range/Units Sodium Level 139 136-145 mmol/L Potassium Level 4.5 3.5-5.1 mmol/L Chloride Level 104 98-107 mmol/L Carbon Dioxide Level 27 20-31 mmol/L Anion Gap 8 5-15 Blood Urea Nitrogen 9 9-23 mg/dL Creatinine 0.65 0.550-1.02 mg/dL Glomerular Filtration Rate Calc 97 >90 mL/min BUN/Creatinine Ratio 13.8 10.0-20.0 Serum Glucose 175 H 74-106 mg/dL Calcium Level 9.0 8.7-10.4 mg/dL Magnesium Level 2.3 1.6-2.6 mg/dL B-Type Natriuretic Peptide 165.48 0-100 pg/mL White Blood Count 12.5 #H 4.4-10.8 10^3/uL Red Blood Count 4.05 4.0-5.20 10^6/uL Hemoglobin 13.3 12.2-16.2 g/dL Hematocrit 39.3 36.0-46.0 % Mean Corpuscular Volume 96.9 80.0-100.0 fL Mean Corpuscular Hemoglobin 32.9 H 28.0-32.0 pg Mean Corpuscular Hemoglobin Concent 33.9 32.0-36.0 g/dL Red Cell Distribution Width 15.2 H 11.8-14.3 % Platelet Count 245 140-450 10^3/uL Mean Platelet Volume 7.3 6.9-10.8 fL Neutrophils (%) (Auto) 90.4 H 37.0-80.0 % Lymphocytes (%) (Auto) 5.4 L 10.0-50.0 % Monocytes (%) (Auto) 4.1 0.0-12.0 % Eosinophils (%) (Auto) 0.0 0.0-7.0 % Basophils (%) (Auto) 0.1 0.0-2.0 % Neutrophils # (Auto) 11.3 H 1.6-8.6 10 ^3/uL Lymphocytes # (Auto) 0.7 0.4-5.4 10 ^3/uL Monocytes # (Auto) 0.5 0-1.3 10 ^3/uL Eosinophils # (Auto) 0 0-0.8 10 ^3/uL Basophils # (Auto) 0 0-0.2 10 ^3/uL Nucleated Red Blood Cells 0.1 % Urine Color Yellow Yellow Urine Clarity Clear Clear Urine pH 6.0 5.0-9.0 Urine Specific [place] 1.020 1.001-1.035 Urine Protein Negative Negative Urine Ketones 1+ H Negative Urine Blood Negative Negative /uL Urine Nitrite Negative Negative Urine Bilirubin Negative Negative Urine Urobilinogen Normal Negative mg/dL Urine Leukocyte Esterase Negative Negative /uL Urine RBC 1 0 - 4 /hpf Urine Microscopic WBC 1 0-5 /HPF Urine Squamous Epithelial Cells Few <5 /hpf Urine Bacteria None seen None Seen /hpf Urine Glucose 4+ H Normal mg/dL Influenza Type A Antigen Negative Negative Influenza Type B Antigen Negative Negative SARS-CoV-2 Antigen (Rapid) Negative NEGATIVE Test 01/25/25 12:10 8/17/25 10:37 Range/Units Troponin I High Sensitivity < 3 L </=34 ng/L D-Dimer, Quantitative 1.01 H 0.0-0.49 mg/L FEU Assessment/Plan Plan Patient is a 64-year-old female who presented to the hospital with shortness of breath/cough/social and lower extremity edema. Patient is admitted with COPD exacerbation. Does have baseline history of chronic respiratory failure and is on home oxygen. Comes to our practice as outside. Cardiology is involved for cardiac aspects of care. Not in acute distress. No JVD. Mucosa is pink and wet. No carotid bruit. Scattered rhonchi and wheezes in lungs. No crackles. Cardiac: Regular, no thrill/gallop. Systolic murmur 2/6 in apex is heard. Abdomen is soft. Bowel sound is positive. There is no gross mass. Extremities reveal 3+ edema. Past medical history includes chronic respiratory failure on home oxygen, COPD, hypertension, hyperlipidemia, morbid obesity, history of prediabetes, active cigarette smoking, daily use of alcohol, pulmonary nodule, status post cholecystectomy/tonsillectomy/tubal ligation and old history of ectopic pregnancies. Echocardiogram of June 2019 had revealed concentric left ventricular hypertrophy, normal valves, ejection fraction of 60% and right ventricular systolic pressure of 30 mm Hg Echocardiogram of October 27, 2024 (performed in [facility]) reported ejection fraction of 60-65%, mild increase in left ventricular thickness, stage I diastolic dysfunction, mild MR/TR/PI Echocardiogram of November 13, 2024 had revealed ejection fraction of 60%, mild concentric left ventricular hypertrophy, mild right ventricular and right atrial enlargement, old right ventricular systolic function, trace MR/TR and right ventricular systolic pressure of 29 mm Hg. Nuclear stress test of October 28, 2024 (performed in [facility]) reported no ischemia/normal wall motion and ejection fraction of 64% WBC: 9.2 - 12.5 D-dimer: 1.01 Potassium: 3.4 - 4.5 - 4.5 Creatinine: 0.71 - 0.72 - 0.65 BNP: 53.45 - 165.48 Troponin (high sensitive): <3 - <3 Chest x-ray revealed: IMPRESSION: 1. No evidence of acute disease. EKG reveals sinus rhythm with no specific ST-T changes Tele reveals sinus rhythm Patient is a 64-year-old female who presented with shortness of breaths/cough/leg edema and dyspnea on exertion. Did have some cough. He is found to have rhonchi in the lungs. Presentation is in favor of COPD exacerbation/URI. Acute heart failure is less likely. Does have acute respiratory failure. There is question about chronic respiratory failure because of long-term smoking. Component of acute on chronic D-CHF cannot be ruled out. Acute respiratory failure COPD exacerbation Questionable acute on chronic diastolic heart failure Tobacco dependence Morbid obesity Alcohol use/abuse History of pulmonary nodules Leg edema Cardiac suggestion for management: Manage on telemetry Gentle diuresis Follow-up electrolytes and kidney function tests and correct abnormalities Oxygen supplementation Pulmonary consultation for COPD exacerbation and respiratory failure Avoid amlodipine which could have contributed to the leg edema Thank you for consultation Further evaluation and management depends on the above and clinical course A total of 75 minutes was spent reviewing the patient record, examining the patient, making a diagnostic and therapeutic plan, discussing this plan with medical personnel, following up on diagnostic studies and following the patient for clinical stability excluding any and all procedures. At least 50% of this time was spent in direct, [id number] contact. Thank you for allowing me to participate in this patient's care. Further recommendations will depend on patient's clinical course. Please do not hesitate to contact me if you have any questions or concerns. This medical document was created using electronic medical record system with [employer] computerized dictation system. Although this document has been carefully reviewed, there may still be some phonetic and typographical errors. These areas are purely typographical due to the imperfection of the software programs, and do not reflect any compromise in the patient's medical care Plan discussed with: Patient, Other (nurse) SHEILA SANTOS MD Jan 27, 2025 10:07
[2025-01-27] MEDS: FUROSEMIDE 40 MG/4 ML VIAL IV SCH (13:12)
--- NOTE | 2025-01-27 17:46 | DVHPN2 ---
Progress Note - Dictate Date Seen: Jan 27, 2025 Medical Necessity Reason Pt with a Central, PICC or Fol: No vital signs Vital Sign Date Time Temp Pulse Resp B/P (MAP) Pulse Ox O2 Delivery O2 Flow Rate FiO2 01/27/25 17:00 97.9 83 18 126/75 (92) 100 97.9 01/27/25 13:49 Nasal Cannula* 4 36 Total Intake and Output 01/26/25 01/26/25 01/27/25 15:00 23:00 07:00 Intake Total 1800 ml 1000 ml Balance 1800 ml 1000 ml medications Current Medications Medications Dose Ordered Sig/Mayela Route Start Time Stop Time Status Last Admin Dose Admin Acetaminophen/ Hydrocodone Bitart 1 tab Q4HP PRN PO 01/25/25 13:00 Enoxaparin Sodium 40 mg DAILY SC 01/26/25 10:00 01/27/25 09:27 40 MG Acetaminophen 650 mg Q6HP PRN PO 01/25/25 13:00 01/26/25 22:31 650 MG Nitroglycerin 0.4 mg Q5MINP PRN SL 01/25/25 13:00 Morphine Sulfate 2 mg Q30M PRN IV 01/25/25 13:00 Ceftriaxone Sodium 50 ml @ 100 mls/hr DAILY@09 IV 01/26/25 09:00 01/27/25 09:30 100 MLS/HR Azithromycin 250 ml @ 125 mls/hr DAILY IV 01/26/25 10:00 01/27/25 09:50 125 MLS/HR Albuterol 2.5 mg Q4HWA [facility] 01/25/25 14:00 01/27/25 13:49 2.5 MG Ipratropium [place] 0.5 mg Q4HWA NEB 01/25/25 14:00 01/27/25 13:49 0.5 MG Budesonide 0.5 mg BID NEB 01/25/25 22:00 01/27/25 06:34 0.5 MG Aspirin 81 mg DAILY PO 01/26/25 10:00 01/27/25 10:12 81 MG Losartan Potassium 50 mg DAILY PO 01/26/25 10:00 01/27/25 09:26 50 MG Pantoprazole Sodium 40 mg DAILY PO 01/26/25 10:00 01/27/25 09:25 40 MG Atorvastatin Calcium 40 mg HS PO 01/25/25 22:00 01/26/25 22:32 40 MG Metoprolol Succinate 25 mg DAILY PO 01/26/25 10:00 01/27/25 09:27 25 MG Methylprednisolone Sodium Succinate 40 mg Q8H IV 01/25/25 18:00 01/27/25 17:28 40 MG Potassium Chloride 40 meq DAILY PO 01/27/25 10:00 01/27/25 09:25 40 MEQ Temazepam 15 mg HSPRN PRN PO 01/26/25 18:45 01/26/25 22:31 15 MG Furosemide 40 mg BID IV 01/27/25 10:00 01/27/25 13:12 40 MG laboratory and microbiology Laboratory Tests 01/27/25 06:03 01/26/25 06:38 Test 01/27/25 06:03 Range/Units Serum Glucose 175 H 74-106 mg/dL Problem List Subjective Patient is awake and alert. Objective Patient is doing much better today. Patient had acute on chronic respiratory failure related to COPD exacerbation and possible CHF exacerbation. Patient was seen by cardiology. BNP was 165. Patient does have bilateral lower extremity edema and she is obese. Patient was started on diuretics and diuretics were increased to twice a day by cardiology. Plan Continue breathing treatments for COPD exacerbation. Continue diuretics for CHF exacerbation. DC planning in 1 to 2 days. Plan discussed with: Patient, Other JOSE A VELASQUEZ MD Jan 27, 2025 17:46 MASSIMO ARROYO NP Jan 27, 2025 21:03
[2025-01-28] VITALS (20 sets, daily range): BP systolic 95–133; BP diastolic 54–80; PULSE 61–92; RESP 16–20; TEMP 97.6–99; O2SAT 90–100
--- NOTE | 2025-01-28 06:01 | DVHPN2 ---
Progress Note - Dictate Date Seen: Jan 28, 2025 Medical Necessity Reason Pt with a Central, PICC or Fol: No vital signs Vital Sign Date Time Temp Pulse Resp B/P (MAP) Pulse Ox O2 Delivery O2 Flow Rate FiO2 01/28/25 05:00 97.8 90 18 133/77 (95) 97 97.8 01/27/25 21:59 Nasal Cannula* 3 32 Total Intake and Output 01/27/25 01/27/25 01/28/25 15:00 23:00 07:00 Intake Total 300 ml 1200 ml 200 ml Balance 300 ml 1200 ml 200 ml medications Current Medications Medications Dose Ordered Sig/Mayela Route Start Time Stop Time Status Last Admin Dose Admin Acetaminophen/ Hydrocodone Bitart 1 tab Q4HP PRN PO 01/25/25 13:00 Enoxaparin Sodium 40 mg DAILY SC 01/26/25 10:00 01/27/25 09:27 40 MG Acetaminophen 650 mg Q6HP PRN PO 01/25/25 13:00 01/26/25 22:31 650 MG Nitroglycerin 0.4 mg Q5MINP PRN SL 01/25/25 13:00 Morphine Sulfate 2 mg Q30M PRN IV 01/25/25 13:00 Ceftriaxone Sodium 50 ml @ 100 mls/hr DAILY@09 IV 01/26/25 09:00 01/27/25 09:30 100 MLS/HR Azithromycin 250 ml @ 125 mls/hr DAILY IV 01/26/25 10:00 01/27/25 09:50 125 MLS/HR Albuterol 2.5 mg Q4HWA NEB 01/25/25 14:00 01/27/25 21:58 2.5 MG Ipratropium [place] 0.5 mg Q4HWA NEB 01/25/25 14:00 01/27/25 21:58 0.5 MG Budesonide 0.5 mg BID NEB 01/25/25 22:00 01/27/25 17:51 0.5 MG Aspirin 81 mg DAILY PO 01/26/25 10:00 01/27/25 10:12 81 MG Losartan Potassium 50 mg DAILY PO 01/26/25 10:00 01/27/25 09:26 50 MG Pantoprazole Sodium 40 mg DAILY PO 01/26/25 10:00 01/27/25 09:25 40 MG Atorvastatin Calcium 40 mg HS PO 01/25/25 22:00 01/27/25 21:33 40 MG Metoprolol Succinate 25 mg DAILY PO 01/26/25 10:00 01/27/25 09:27 25 MG Methylprednisolone Sodium Succinate 40 mg Q8H IV 01/25/25 18:00 01/28/25 01:57 40 MG Potassium Chloride 40 meq DAILY PO 01/27/25 10:00 01/27/25 09:25 40 MEQ Temazepam 15 mg HSPRN PRN PO 01/26/25 18:45 01/27/25 23:47 15 MG Furosemide 40 mg BID IV 01/27/25 10:00 01/27/25 21:33 40 MG laboratory and microbiology Laboratory Tests 01/27/25 06:03 01/26/25 06:38 Test 01/27/25 06:03 Range/Units Serum Glucose 175 H 74-106 mg/dL Assessment/Plan Patient is a 64-year-old female who presented to the hospital with shortness of breath/cough/social and lower extremity edema. Patient is admitted with COPD exacerbation. Does have baseline history of chronic respiratory failure and is on home oxygen. Comes to our practice as outside. Cardiology is involved for cardiac aspects of care. Not in acute distress. No JVD. Mucosa is pink and wet. No carotid bruit. Scattered rhonchi and wheezes in lungs. No crackles. Cardiac: Regular, no thrill/gallop. Systolic murmur 2/6 in apex is heard. Abdomen is soft. Bowel sound is positive. There is no gross mass. Extremities reveal 3+ edema. Past medical history includes chronic respiratory failure on home oxygen, COPD, hypertension, hyperlipidemia, morbid obesity, history of prediabetes, active cigarette smoking, daily use of alcohol, pulmonary nodule, status post cholecystectomy/tonsillectomy/tubal ligation and old history of ectopic pregnancies. Echocardiogram of June 2019 had revealed concentric left ventricular hypertrophy, normal valves, ejection fraction of 60% and right ventricular systolic pressure of 30 mm Hg Echocardiogram of October 27, 2024 (performed in [facility]) reported ejection fraction of 60-65%, mild increase in left ventricular thickness, stage I diastolic dysfunction, mild MR/TR/PI Echocardiogram of November 13, 2024 had revealed ejection fraction of 60%, mild concentric left ventricular hypertrophy, mild right ventricular and right atrial enlargement, old right ventricular systolic function, trace MR/TR and right ventricular systolic pressure of 29 mm Hg. Nuclear stress test of October 28, 2024 (performed in [facility]) reported no ischemia/normal wall motion and ejection fraction of 64% WBC: 9.2 - 12.5 D-dimer: 1.01 Potassium: 3.4 - 4.5 - 4.5 Creatinine: 0.71 - 0.72 - 0.65 BNP: 53.45 - 165.48 Troponin (high sensitive): <3 - <3 Chest x-ray revealed: IMPRESSION: 1. No evidence of acute disease. EKG reveals sinus rhythm with no specific ST-T changes Tele reveals sinus rhythm Patient is a 64-year-old female who presented with shortness of breaths/cough/leg edema and dyspnea on exertion. Did have some cough. He is found to have rhonchi in the lungs. Presentation is in favor of COPD exacerbation/URI. Acute heart failure is less likely. Does have acute respiratory failure. There is question about chronic respiratory failure because of long-term smoking. Component of acute on chronic D-CHF cannot be ruled out. Acute respiratory failure COPD exacerbation Questionable acute on chronic diastolic heart failure Tobacco dependence Morbid obesity Alcohol use/abuse History of pulmonary nodules Leg edema Cardiac suggestion for management: Manage on telemetry Gentle diuresis Follow-up electrolytes and kidney function tests and correct abnormalities. Keep potassium above 4 and Magnesium above 2 Oxygen supplementation Pulmonary consultation for COPD exacerbation and respiratory failure Avoid amlodipine which could have contributed to the leg edema Further evaluation and management depends on the above and clinical course A total of 55 minutes was spent reviewing the patient record, examining the patient, making a diagnostic and therapeutic plan, discussing this plan with medical personnel, following up on diagnostic studies and following the patient for clinical stability excluding any and all procedures. At least 50% of this time was spent in direct, [id number] contact. Thank you for allowing me to participate in this patient's care. Further recommendations will depend on patient's clinical course. Please do not hesitate to contact me if you have any questions or concerns. This medical document was created using electronic medical record system with [employer] dictation system. Although this document has been carefully reviewed, there may still be some phonetic and typographical errors. These areas are purely typographical due to the imperfection of the software programs, and do not reflect any compromise in the patient's medical care Plan discussed with: Patient, Other (nurse) SHEILA SANTOS MD Jan 28, 2025 06:01
[2025-01-28 09:11] LABS: Hematocrit 42.3 % (36.0-46.0); Hemoglobin 14.4 g/dL (12.2-16.2); Mean Corpuscular Hemoglobin 33.0 pg (28.0-32.0); Mean Corpuscular Volume 96.8 fL (80.0-100.0); Nucleated Red Blood Cells % 0.0 %
[2025-01-28 09:18] LABS: Alanine Aminotransferase 13 U/L (7-40); Alkaline Phosphatase 86 U/L (46-116); Anion Gap 10 (5-15); BUN/Creatinine Ratio 17.1 (10.0-20.0); Blood Urea Nitrogen 13 mg/dL (9-23); Calcium 9.5 mg/dL (8.7-10.4); Carbon Dioxide 29 mmol/L (20-31); Chloride 101 mmol/L (98-107); Magnesium 2.3 mg/dL (1.6-2.6); Potassium 4.5 mmol/L (3.5-5.1); Sodium 140 mmol/L (136-145); Total Protein 6.5 g/dL (5.7-8.2)
[2025-01-28 09:19] LABS: Albumin 4.6 g/dL (3.2-4.8); Bilirubin, Total 0.6 mg/dL (0.2-1.0)
[2025-01-28 09:32] LABS: Glucose 167 mg/dL (74-106)
--- NOTE | 2025-01-28 10:51 | ECG ---
[facility] Test Date: 2025-01-25 Test Time: 09:12:49 Pat Name: BRENDAN SERNA Department: ED Room: 0245T B Gender: F Activity Therapist: belle : 1960 Requested By: NYLA FERREIRA Order Number: [id number] Reading MD: Dequan Donaldson Measurements Intervals [place] Rate: 75 P: 76 TX: 162 QRS: 75 QRSD: 78 T: 46 QT: 410 QTc: 458 Interpretive Statements Sinus rhythm Consider right atrial enlargement Minimal ST depression, inferior leads Electronically Signed On 01-28-2025 22:24:42 PDT by Dequan Donaldson Please click the below link to view image of tracing.
--- NOTE | 2025-01-28 13:41 | DVHPN2 ---
Progress Note - Dictate Medical Necessity Reason Pt with a Central, PICC or Fol: No vital signs Vital Sign Date Time Temp Pulse Resp B/P (MAP) Pulse Ox O2 Delivery O2 Flow Rate FiO2 01/28/25 11:21 86 16 123/71 98 3.0 32 01/28/25 10:00 Nasal Cannula 01/28/25 08:58 99.0 99.0 Total Intake and Output 01/27/25 01/27/25 01/28/25 15:00 23:00 07:00 Intake Total 300 ml 1200 ml 200 ml Balance 300 ml 1200 ml 200 ml medications Current Medications Medications Dose Ordered Sig/Mayela Route Start Time Stop Time Status Last Admin Dose Admin Acetaminophen/ Hydrocodone Bitart 1 tab Q4HP PRN PO 01/25/25 13:00 Enoxaparin Sodium 40 mg DAILY SC 01/26/25 10:00 01/28/25 09:46 40 MG Acetaminophen 650 mg Q6HP PRN PO 01/25/25 13:00 01/28/25 11:27 650 MG Nitroglycerin 0.4 mg Q5MINP PRN SL 01/25/25 13:00 Morphine Sulfate 2 mg Q30M PRN IV 01/25/25 13:00 Ceftriaxone Sodium 50 ml @ 100 mls/hr DAILY@09 IV 01/26/25 09:00 01/28/25 09:42 100 MLS/HR Azithromycin 250 ml @ 125 mls/hr DAILY IV 01/26/25 10:00 01/28/25 11:31 125 MLS/HR Albuterol 2.5 mg Q4HWA NEB 01/25/25 14:00 01/28/25 09:50 2.5 MG Ipratropium [place] 0.5 mg Q4HWA NEB 01/25/25 14:00 01/28/25 09:50 0.5 MG Budesonide 0.5 mg BID NEB 01/25/25 22:00 01/28/25 06:05 0.5 MG Aspirin 81 mg DAILY PO 01/26/25 10:00 01/28/25 09:44 81 MG Losartan Potassium 50 mg DAILY PO 01/26/25 10:00 01/28/25 09:45 50 MG Pantoprazole Sodium 40 mg DAILY PO 01/26/25 10:00 01/28/25 09:45 40 MG Atorvastatin Calcium 40 mg HS PO 01/25/25 22:00 01/27/25 21:33 40 MG Metoprolol Succinate 25 mg DAILY PO 01/26/25 10:00 01/28/25 09:45 25 MG Methylprednisolone Sodium Succinate 40 mg Q8H IV 01/25/25 18:00 01/28/25 09:42 40 MG Potassium Chloride 40 meq DAILY PO 01/27/25 10:00 01/28/25 09:44 40 MEQ Temazepam 15 mg HSPRN PRN PO 01/26/25 18:45 01/27/25 23:47 15 MG Furosemide 40 mg BID IV 01/27/25 10:00 01/28/25 09:43 40 MG objective General Appearance: alert, no distress HEENT: EOMI, PERRLA, normal external inspect of ears, no icterus, no nasal drainage Neck: no carotid bruit, no jugular venous distention (JVD), no lymphadenopathy Chest: normal thorax Respiratory: clear to auscultation, normal air movement Cardiovascular: regular rate and rhythm, no diastolic murmur, no jugular venous distention (JVD), no rub, no systolic murmur Abdominal: soft, no hepatomegaly, no mass, no splenomegaly, no tenderness Genitourinary: grossly normal external Musculoskeletal: no joint tenderness, no swelling Extremities: normal pulses, no calf tenderness, no clubbing, no cyanosis, no edema Skin: no bruising, no jaundice, no rash Neurological: alert, No focal deficit laboratory and microbiology Laboratory Tests 01/28/25 08:47 Test 01/28/25 08:47 Range/Units Serum Glucose 167 H 74-106 mg/dL Problem List Subjective Patient is awake and alert. Objective Patient is doing much better today. Patient had acute on chronic respiratory failure related to COPD exacerbation and possible CHF exacerbation. Patient was seen by cardiology. BNP was 165. Patient does have bilateral lower extremity edema and she is obese. Patient was started on diuretics and diuretics were increased to twice a day by cardiology. Plan Continue breathing treatments for COPD exacerbation. Continue diuretics for CHF exacerbation. DC planning in 1 to 2 days. Assessment/Plan Subjective: Patient is awake and alert. Objective: Patient is on 4 liters nasal cannula. Patient was admitted for COPD exacerbation. I discussed the plan of care with the patient. Patient states she has an oxygen concentrator at home but does not feel it is working appropriately. She reports that even on maximum flow she still feels very short of breath. Patient states she sees Dr. Ozuna for Cardiology. She has bilateral lower extremity edema. Plan: Cardiology consult. Start IV diuretics for possible CHF exacerbation. Continue to wean down O? as tolerated. MASSIMO ARROYO NP Jan 28, 2025 13:41
--- NOTE | 2025-01-28 17:37 | DVHPN2 ---
Progress Note - Dictate Date Seen: Jan 28, 2025 Medical Necessity Reason Pt with a Central, PICC or Fol: No vital signs Vital Sign Date Time Temp Pulse Resp B/P (MAP) Pulse Ox O2 Delivery O2 Flow Rate FiO2 01/28/25 16:27 98.3 76 17 122/80 (94) 93 98.3 01/28/25 11:21 3.0 32 01/28/25 10:00 Nasal Cannula Total Intake and Output 01/27/25 01/27/25 01/28/25 15:00 23:00 07:00 Intake Total 300 ml 1200 ml 200 ml Balance 300 ml 1200 ml 200 ml medications Current Medications Medications Dose Ordered Sig/Mayela Route Start Time Stop Time Status Last Admin Dose Admin Acetaminophen/ Hydrocodone Bitart 1 tab Q4HP PRN PO 01/25/25 13:00 Enoxaparin Sodium 40 mg DAILY SC 01/26/25 10:00 01/28/25 09:46 40 MG Acetaminophen 650 mg Q6HP PRN PO 01/25/25 13:00 01/28/25 11:27 650 MG Nitroglycerin 0.4 mg Q5MINP PRN SL 01/25/25 13:00 Morphine Sulfate 2 mg Q30M PRN IV 01/25/25 13:00 Ceftriaxone Sodium 50 ml @ 100 mls/hr DAILY@09 IV 01/26/25 09:00 01/28/25 09:42 100 MLS/HR Azithromycin 250 ml @ 125 mls/hr DAILY IV 01/26/25 10:00 01/28/25 11:31 125 MLS/HR Albuterol 2.5 mg Q4HWA NEB 01/25/25 14:00 01/28/25 13:57 2.5 MG Ipratropium [place] 0.5 mg Q4HWA NEB 01/25/25 14:00 01/28/25 13:57 0.5 MG Budesonide 0.5 mg BID NEB 01/25/25 22:00 01/28/25 06:05 0.5 MG Aspirin 81 mg DAILY PO 01/26/25 10:00 01/28/25 09:44 81 MG Losartan Potassium 50 mg DAILY PO 01/26/25 10:00 01/28/25 09:45 50 MG Pantoprazole Sodium 40 mg DAILY PO 01/26/25 10:00 01/28/25 09:45 40 MG Atorvastatin Calcium 40 mg HS PO 01/25/25 22:00 01/27/25 21:33 40 MG Metoprolol Succinate 25 mg DAILY PO 01/26/25 10:00 01/28/25 09:45 25 MG Methylprednisolone Sodium Succinate 40 mg Q8H IV 01/25/25 18:00 01/28/25 09:42 40 MG Potassium Chloride 40 meq DAILY PO 01/27/25 10:00 01/28/25 09:44 40 MEQ Temazepam 15 mg HSPRN PRN PO 01/26/25 18:45 01/27/25 23:47 15 MG Furosemide 40 mg BID IV 01/27/25 10:00 01/28/25 09:43 40 MG laboratory and microbiology Laboratory Tests 01/28/25 08:47 Test 01/28/25 08:47 Range/Units Serum Glucose 167 H 74-106 mg/dL Assessment/Plan Impression Acute hypoxemic respiratory failure Acute COPD exacerbation Atelectasis Dyspnea Patient seen and examined Events Low oxygen requirements On 2 liters nasal cannula No distress Labs and imaging reviewed Management Supplemental oxygen Titrate to maintain sats 90% or above Incentive spirometry Continue antibiotics F/u cultures Bronchodilators Steroids for COPD management Monitor renal function Monitor electrolytes Supplement as needed DVT prophylaxis Dietary Evaluation Review Comments: 2GNA CCHO-60 diet Weight management upon D/C Expected Outcomes/Goals: controlled blood sugar gradual wt loss Plan discussed with: Patient JOSE A VELASQUEZ MD Jan 28, 2025 17:37
[2025-01-29] VITALS (19 sets, daily range): BP systolic 112–133; BP diastolic 52–74; PULSE 70–103; RESP 12–20; TEMP 97.6–98.7; O2SAT 91–100
[2025-01-29] MEDS: HYDROcodone-ACET 5/325MG TAB PO PRN
--- NOTE | 2025-01-29 07:26 | DVHPN2 ---
Progress Note - Dictate Date Seen: Jan 29, 2025 Medical Necessity Reason Pt with a Central, PICC or Fol: No vital signs Vital Sign Date Time Temp Pulse Resp B/P (MAP) Pulse Ox O2 Delivery O2 Flow Rate FiO2 01/29/25 04:55 97.8 79 19 117/65 (82) 100 97.8 01/28/25 23:05 Nasal Cannula 3.0 01/28/25 23:05 32 Total Intake and Output 01/28/25 01/28/25 01/29/25 15:00 23:00 07:00 Intake Total 300 ml 1100 ml 800 ml Balance 300 ml 1100 ml 800 ml medications Current Medications Medications Dose Ordered Sig/Mayela Route Start Time Stop Time Status Last Admin Dose Admin Acetaminophen/ Hydrocodone Bitart 1 tab Q4HP PRN PO 01/25/25 13:00 01/29/25 00:00 1 TAB Enoxaparin Sodium 40 mg DAILY SC 01/26/25 10:00 01/28/25 09:46 40 MG Acetaminophen 650 mg Q6HP PRN PO 01/25/25 13:00 01/28/25 11:27 650 MG Nitroglycerin 0.4 mg Q5MINP PRN SL 01/25/25 13:00 Morphine Sulfate 2 mg Q30M PRN IV 01/25/25 13:00 Ceftriaxone Sodium 50 ml @ 100 mls/hr DAILY@09 IV 01/26/25 09:00 01/28/25 09:42 100 MLS/HR Azithromycin 250 ml @ 125 mls/hr DAILY IV 01/26/25 10:00 01/28/25 11:31 125 MLS/HR Albuterol 2.5 mg Q4HWA NEB 01/25/25 14:00 01/28/25 23:05 2.5 MG Ipratropium [place] 0.5 mg Q4HWA NEB 01/25/25 14:00 01/28/25 23:05 0.5 MG Budesonide 0.5 mg BID NEB 01/25/25 22:00 01/28/25 18:48 0.5 MG Aspirin 81 mg DAILY PO 01/26/25 10:00 01/28/25 09:44 81 MG Losartan Potassium 50 mg DAILY PO 01/26/25 10:00 01/28/25 09:45 50 MG Pantoprazole Sodium 40 mg DAILY PO 01/26/25 10:00 01/28/25 09:45 40 MG Atorvastatin Calcium 40 mg HS PO 01/25/25 22:00 01/28/25 23:59 40 MG Metoprolol Succinate 25 mg DAILY PO 01/26/25 10:00 01/28/25 09:45 25 MG Methylprednisolone Sodium Succinate 40 mg Q8H IV 01/25/25 18:00 01/29/25 02:40 40 MG Potassium Chloride 40 meq DAILY PO 01/27/25 10:00 01/28/25 09:44 40 MEQ Temazepam 15 mg HSPRN PRN PO 01/26/25 18:45 01/27/25 23:47 15 MG Furosemide 40 mg BID IV 01/27/25 10:00 01/28/25 23:59 40 MG laboratory and microbiology Laboratory Tests 01/28/25 08:47 Test 01/28/25 08:47 Range/Units Serum Glucose 167 H 74-106 mg/dL Assessment/Plan Patient is a 64-year-old female who presented to the hospital with shortness of breath/cough/social and lower extremity edema. Patient is admitted with COPD exacerbation. Does have baseline history of chronic respiratory failure and is on home oxygen. Comes to our practice as outside. Cardiology is involved for cardiac aspects of care. Not in acute distress. No JVD. Mucosa is pink and wet. No carotid bruit. Scattered rhonchi and wheezes in lungs. No crackles. Cardiac: Regular, no thrill/gallop. Systolic murmur 2/6 in apex is heard. Abdomen is soft. Bowel sound is positive. There is no gross mass. Extremities reveal 3+ edema. Past medical history includes chronic respiratory failure on home oxygen, COPD, hypertension, hyperlipidemia, morbid obesity, history of prediabetes, active cigarette smoking, daily use of alcohol, pulmonary nodule, status post cholecystectomy/tonsillectomy/tubal ligation and old history of ectopic pregnancies. Echocardiogram of June 2019 had revealed concentric left ventricular hypertrophy, normal valves, ejection fraction of 60% and right ventricular systolic pressure of 30 mm Hg Echocardiogram of October 27, 2024 (performed in [facility]) reported ejection fraction of 60-65%, mild increase in left ventricular thickness, stage I diastolic dysfunction, mild MR/TR/PI Echocardiogram of November 13, 2024 had revealed ejection fraction of 60%, mild concentric left ventricular hypertrophy, mild right ventricular and right atrial enlargement, old right ventricular systolic function, trace MR/TR and right ventricular systolic pressure of 29 mm Hg. Nuclear stress test of October 28, 2024 (performed in [facility]) reported no ischemia/normal wall motion and ejection fraction of 64% WBC: 9.2 - 12.5 - 11.9 D-dimer: 1.01 Potassium: 3.4 - 4.5 - 4.5 - 4.5 Creatinine: 0.71 - 0.72 - 0.65 - 0.76 BNP: 53.45 - 165.48 Troponin (high sensitive): <3 - <3 Chest x-ray revealed: IMPRESSION: 1. No evidence of acute disease. EKG reveals sinus rhythm with no specific ST-T changes Tele reveals sinus rhythm Patient is a 64-year-old female who presented with shortness of breaths/cough/leg edema and dyspnea on exertion. Did have some cough. He is found to have rhonchi in the lungs. Presentation is in favor of COPD exacerbation/URI. Acute heart failure is less likely. Does have acute respiratory failure. There is question about chronic respiratory failure because of long-term smoking. Component of acute on chronic D-CHF cannot be ruled out. Acute respiratory failure COPD exacerbation Questionable acute on chronic diastolic heart failure Tobacco dependence Morbid obesity Alcohol use/abuse History of pulmonary nodules Leg edema Cardiac suggestion for management: Manage on telemetry Gentle diuresis Follow-up electrolytes and kidney function tests and correct abnormalities. Keep potassium above 4 and Magnesium above 2 Oxygen supplementation Pulmonary consultation for COPD exacerbation and respiratory failure Avoid amlodipine which could have contributed to the leg edema Cardiac garcia, improved and stable Further evaluation and management depends on the above and clinical course A total of 55 minutes was spent reviewing the patient record, examining the patient, making a diagnostic and therapeutic plan, discussing this plan with medical personnel, following up on diagnostic studies and following the patient for clinical stability excluding any and all procedures. At least 50% of this time was spent in direct, [id number] contact. Thank you for allowing me to participate in this patient's care. Further recommendations will depend on patient's clinical course. Please do not hesitate to contact me if you have any questions or concerns. This medical document was created using electronic medical record system with [email or web address] dictation system. Although this document has been carefully reviewed, there may still be some phonetic and typographical errors. These areas are purely typographical due to the imperfection of the software programs, and do not reflect any compromise in the patient's medical care Dietary Evaluation Review Comments: 2GNA CCHO-60 diet Weight management upon D/C Expected Outcomes/Goals: controlled blood sugar gradual wt loss Plan discussed with: Patient, Other (nurse) SHEILA SANTOS MD Jan 29, 2025 07:26
--- NOTE | 2025-01-29 10:05 | DVHPN2 ---
Progress Note - Dictate Date Seen: Jan 29, 2025 Medical Necessity Reason Pt with a Central, PICC or Fol: No vital signs Vital Sign Date Time Temp Pulse Resp B/P (MAP) Pulse Ox O2 Delivery O2 Flow Rate FiO2 01/29/25 09:30 97.6 79 18 112/58 (76) 91 97.6 01/29/25 07:50 Nasal Cannula* 3 32 Total Intake and Output 01/28/25 01/28/25 01/29/25 15:00 23:00 07:00 Intake Total 300 ml 1100 ml 800 ml Balance 300 ml 1100 ml 800 ml medications Current Medications Medications Dose Ordered Sig/Mayela Route Start Time Stop Time Status Last Admin Dose Admin Acetaminophen/ Hydrocodone Bitart 1 tab Q4HP PRN PO 01/25/25 13:00 01/29/25 00:00 1 TAB Enoxaparin Sodium 40 mg DAILY SC 01/26/25 10:00 01/28/25 09:46 40 MG Acetaminophen 650 mg Q6HP PRN PO 01/25/25 13:00 01/28/25 11:27 650 MG Nitroglycerin 0.4 mg Q5MINP PRN SL 01/25/25 13:00 Morphine Sulfate 2 mg Q30M PRN IV 01/25/25 13:00 Ceftriaxone Sodium 50 ml @ 100 mls/hr DAILY@09 IV 01/26/25 09:00 01/28/25 09:42 100 MLS/HR Azithromycin 250 ml @ 125 mls/hr DAILY IV 01/26/25 10:00 01/28/25 11:31 125 MLS/HR Albuterol 2.5 mg Q4HWA NEB 01/25/25 14:00 01/29/25 07:37 2.5 MG Ipratropium [place] 0.5 mg Q4HWA NEB 01/25/25 14:00 01/29/25 07:36 0.5 MG Budesonide 0.5 mg BID NEB 01/25/25 22:00 01/29/25 07:36 0.5 MG Aspirin 81 mg DAILY PO 01/26/25 10:00 01/28/25 09:44 81 MG Losartan Potassium 50 mg DAILY PO 01/26/25 10:00 01/28/25 09:45 50 MG Pantoprazole Sodium 40 mg DAILY PO 01/26/25 10:00 01/28/25 09:45 40 MG Atorvastatin Calcium 40 mg HS PO 01/25/25 22:00 01/28/25 23:59 40 MG Metoprolol Succinate 25 mg DAILY PO 01/26/25 10:00 01/28/25 09:45 25 MG Methylprednisolone Sodium Succinate 40 mg Q8H IV 01/25/25 18:00 01/29/25 02:40 40 MG Potassium Chloride 40 meq DAILY PO 01/27/25 10:00 01/28/25 09:44 40 MEQ Temazepam 15 mg HSPRN PRN PO 01/26/25 18:45 01/27/25 23:47 15 MG Furosemide 40 mg BID IV 01/27/25 10:00 01/28/25 23:59 40 MG objective General Appearance: alert, no distress HEENT: EOMI, PERRLA, normal external inspect of ears, no icterus, no nasal drainage Neck: no carotid bruit, no jugular venous distention (JVD), no lymphadenopathy Chest: normal thorax Respiratory: clear to auscultation, normal air movement Cardiovascular: regular rate and rhythm, no diastolic murmur, no jugular venous distention (JVD), no rub, no systolic murmur Abdominal: soft, no hepatomegaly, no mass, no splenomegaly, no tenderness Genitourinary: grossly normal external Musculoskeletal: no joint tenderness, no swelling Extremities: normal pulses, no calf tenderness, no clubbing, no cyanosis, no edema Skin: no bruising, no jaundice, no rash Neurological: alert, No focal deficit laboratory and microbiology Laboratory Tests 01/28/25 08:47 Test 01/28/25 08:47 Range/Units Serum Glucose 167 H 74-106 mg/dL Problem List Acute hypoxemic respiratory failure due to COPD exacerbation Assessment: Patient presents with worsening shortness of breath, productive cough, and sore throat, consistent with a COPD exacerbation. The patient uses 3.5 liters of oxygen at home, indicating baseline oxygen dependence. The presence of bilateral lower extremity swelling suggests possible fluid overload or right heart strain. The patient denies chest pain, fever, or chills. Given the severity of symptoms and oxygen requirements, the patient is diagnosed with acute hypoxemic respiratory failure secondary to COPD exacerbation, requiring hospital admission for management. Plan: - Admit patient to the hospital - Initiate IV antibiotics - Administer IV steroids - Consult pulmonology service - Initiate nebulizer treatments - Monitor oxygen saturation and adjust oxygen therapy as needed Hypertension Assessment: Patient has a known history of hypertension. Current blood pressure status and control are not explicitly mentioned. Plan: - Monitor blood pressure during hospital stay - Continue losartan 50 mg - Continue amlodipine 10 mg Gastroesophageal reflux disease (GERD) Assessment: Patient has a history of GERD. Current symptoms or severity are not mentioned. Plan: - Continue omeprazole 40 mg Hypokalemia Assessment: Patient is noted to have hypokalemia. The severity and cause are not specified. Plan: - Replace potassium Hyperlipidemia Assessment: Patient has a known history of hyperlipidemia. Current lipid levels and management are not discussed. Plan: -continue with atorvastatin Assessment/Plan Subjective Patient is awake and alert. Objective Patient was admitted for COPD exacerbation and acute on chronic diastolic heart failure. Patient has been receiving IV diuretics. Patient's bilateral lower extremity edema has been improving. Patient is down to 3 L nasal cannula. Plan Continue current treatment. Plan for discharge in a.m. Dietary Evaluation Review Comments: 2GNA CCHO-60 diet Weight management upon D/C Expected Outcomes/Goals: controlled blood sugar gradual wt loss Plan discussed with: Patient, Other MASSIMO ARROYO NP Jan 29, 2025 10:05
--- NOTE | 2025-01-29 15:35 | DVHPN2 ---
Progress Note - Dictate Date Seen: Jan 29, 2025 Medical Necessity Reason Pt with a Central, PICC or Fol: No vital signs Vital Sign Date Time Temp Pulse Resp B/P (MAP) Pulse Ox O2 Delivery O2 Flow Rate FiO2 01/29/25 14:25 90 16 100 01/29/25 14:19 Nasal Cannula 3.0 01/29/25 14:19 32 01/29/25 12:46 97.7 130/58 (82) 97.7 Total Intake and Output 01/28/25 01/28/25 01/29/25 15:00 23:00 07:00 Intake Total 300 ml 1100 ml 800 ml Balance 300 ml 1100 ml 800 ml medications Current Medications Medications Dose Ordered Sig/Mayela Route Start Time Stop Time Status Last Admin Dose Admin Acetaminophen/ Hydrocodone Bitart 1 tab Q4HP PRN PO 01/25/25 13:00 01/29/25 00:00 1 TAB Enoxaparin Sodium 40 mg DAILY SC 01/26/25 10:00 01/29/25 10:14 40 MG Acetaminophen 650 mg Q6HP PRN PO 01/25/25 13:00 01/28/25 11:27 650 MG Nitroglycerin 0.4 mg Q5MINP PRN SL 01/25/25 13:00 Morphine Sulfate 2 mg Q30M PRN IV 01/25/25 13:00 Ceftriaxone Sodium 50 ml @ 100 mls/hr DAILY@09 IV 01/26/25 09:00 01/29/25 10:13 100 MLS/HR Azithromycin 250 ml @ 125 mls/hr DAILY IV 01/26/25 10:00 01/29/25 10:13 125 MLS/HR Albuterol 2.5 mg Q4HWA NEB 01/25/25 14:00 01/29/25 14:19 2.5 MG Ipratropium [place] 0.5 mg Q4HWA NEB 01/25/25 14:00 01/29/25 14:19 0.5 MG Budesonide 0.5 mg BID NEB 01/25/25 22:00 01/29/25 07:36 0.5 MG Aspirin 81 mg DAILY PO 01/26/25 10:00 01/29/25 10:14 81 MG Losartan Potassium 50 mg DAILY PO 01/26/25 10:00 01/29/25 10:14 50 MG Pantoprazole Sodium 40 mg DAILY PO 01/26/25 10:00 01/29/25 10:14 40 MG Atorvastatin Calcium 40 mg HS PO 01/25/25 22:00 01/28/25 23:59 40 MG Metoprolol Succinate 25 mg DAILY PO 01/26/25 10:00 01/29/25 10:14 25 MG Methylprednisolone Sodium Succinate 40 mg Q8H IV 01/25/25 18:00 01/29/25 10:13 40 MG Potassium Chloride 40 meq DAILY PO 01/27/25 10:00 01/29/25 10:14 40 MEQ Temazepam 15 mg HSPRN PRN PO 01/26/25 18:45 01/27/25 23:47 15 MG Furosemide 40 mg BID IV 01/27/25 10:00 01/29/25 10:13 40 MG laboratory and microbiology Laboratory Tests 01/28/25 08:47 Test 01/28/25 08:47 Range/Units Serum Glucose 167 H 74-106 mg/dL Assessment/Plan Impression Acute hypoxemic respiratory failure Acute COPD exacerbation Atelectasis Dyspnea Patient seen and examined Events Low oxygen requirements On 2 liters nasal cannula No acute events Labs and imaging reviewed Management Supplemental oxygen Titrate to maintain sats 90% or above Incentive spirometry Continue antibiotics F/u cultures Bronchodilators Steroids for COPD management Monitor renal function Monitor electrolytes Supplement as needed DVT prophylaxis Dietary Evaluation Review Comments: 2GNA CCHO-60 diet Weight management upon D/C Expected Outcomes/Goals: controlled blood sugar gradual wt loss Plan discussed with: Patient JOSE A VELASQUEZ MD Jan 29, 2025 15:35
--- NOTE | 2025-01-29 18:15 | MEDREC ---
[facility] Intervention Section I [facility] Intervention: Review courses of therapy (Please consider d/c azithromycin. 500mg IV x3 days is the usual recommended duration of therapy for COPD & CAP. Please also consider IV => PO if decide to continue azithromycin) JI RODAS [facility] Jan 29, 2025 18:15
[2025-01-30] VITALS (12 sets, daily range): BP systolic 111–133; BP diastolic 40–77; PULSE 80–92; RESP 17–19; TEMP 97.6–98.5; O2SAT 90–100
--- NOTE | 2025-01-30 06:03 | DVHPN2 ---
Progress Note - Dictate Date Seen: Jan 30, 2025 Medical Necessity Reason Pt with a Central, PICC or Fol: No vital signs Vital Sign Date Time Temp Pulse Resp B/P (MAP) Pulse Ox O2 Delivery O2 Flow Rate FiO2 01/30/25 05:00 98.5 82 17 119/67 (84) 100 98.5 01/29/25 22:45 Nasal Cannula* 3 32 Total Intake and Output 01/29/25 01/29/25 01/30/25 15:00 23:00 07:00 Intake Total 300 ml 1040 ml 0 ml Balance 300 ml 1040 ml 0 ml medications Current Medications Medications Dose Ordered Sig/Mayela Route Start Time Stop Time Status Last Admin Dose Admin Acetaminophen/ Hydrocodone Bitart 1 tab Q4HP PRN PO 01/25/25 13:00 01/29/25 22:29 1 TAB Enoxaparin Sodium 40 mg DAILY SC 01/26/25 10:00 01/29/25 10:14 40 MG Acetaminophen 650 mg Q6HP PRN PO 01/25/25 13:00 01/28/25 11:27 650 MG Nitroglycerin 0.4 mg Q5MINP PRN SL 01/25/25 13:00 Morphine Sulfate 2 mg Q30M PRN IV 01/25/25 13:00 Ceftriaxone Sodium 50 ml @ 100 mls/hr DAILY@09 IV 01/26/25 09:00 01/29/25 10:13 100 MLS/HR Azithromycin 250 ml @ 125 mls/hr DAILY IV 01/26/25 10:00 01/29/25 10:13 125 MLS/HR Albuterol 2.5 mg Q4HWA NEB 01/25/25 14:00 01/29/25 22:45 2.5 MG Ipratropium [place] 0.5 mg Q4HWA NEB 01/25/25 14:00 01/29/25 22:45 0.5 MG Budesonide 0.5 mg BID NEB 01/25/25 22:00 01/29/25 22:45 0.5 MG Aspirin 81 mg DAILY PO 01/26/25 10:00 01/29/25 10:14 81 MG Losartan Potassium 50 mg DAILY PO 01/26/25 10:00 01/29/25 10:14 50 MG Pantoprazole Sodium 40 mg DAILY PO 01/26/25 10:00 01/29/25 10:14 40 MG Atorvastatin Calcium 40 mg HS PO 01/25/25 22:00 01/29/25 22:54 40 MG Metoprolol Succinate 25 mg DAILY PO 01/26/25 10:00 01/29/25 10:14 25 MG Methylprednisolone Sodium Succinate 40 mg Q8H IV 01/25/25 18:00 01/30/25 03:58 40 MG Potassium Chloride 40 meq DAILY PO 01/27/25 10:00 01/29/25 10:14 40 MEQ Temazepam 15 mg HSPRN PRN PO 01/26/25 18:45 01/27/25 23:47 15 MG Furosemide 40 mg BID IV 01/27/25 10:00 01/29/25 22:28 40 MG laboratory and microbiology Laboratory Tests 01/28/25 08:47 Test 01/28/25 08:47 Range/Units Serum Glucose 167 H 74-106 mg/dL Assessment/Plan Patient is a 64-year-old female who presented to the hospital with shortness of breath/cough/social and lower extremity edema. Patient is admitted with COPD exacerbation. Does have baseline history of chronic respiratory failure and is on home oxygen. Comes to our practice as outside. Cardiology is involved for cardiac aspects of care. Not in acute distress. No JVD. Mucosa is pink and wet. No carotid bruit. Scattered rhonchi and wheezes in lungs. No crackles. Cardiac: Regular, no thrill/gallop. Systolic murmur 2/6 in apex is heard. Abdomen is soft. Bowel sound is positive. There is no gross mass. Extremities reveal 3+ edema. Past medical history includes chronic respiratory failure on home oxygen, COPD, hypertension, hyperlipidemia, morbid obesity, history of prediabetes, active cigarette smoking, daily use of alcohol, pulmonary nodule, status post cholecystectomy/tonsillectomy/tubal ligation and old history of ectopic pregnancies. Echocardiogram of June 2019 had revealed concentric left ventricular hypertrophy, normal valves, ejection fraction of 60% and right ventricular systolic pressure of 30 mm Hg Echocardiogram of October 27, 2024 (performed in [facility]) reported ejection fraction of 60-65%, mild increase in left ventricular thickness, stage I diastolic dysfunction, mild MR/TR/PI Echocardiogram of November 13, 2024 had revealed ejection fraction of 60%, mild concentric left ventricular hypertrophy, mild right ventricular and right atrial enlargement, old right ventricular systolic function, trace MR/TR and right ventricular systolic pressure of 29 mm Hg. Nuclear stress test of October 28, 2024 (performed in [facility]) reported no ischemia/normal wall motion and ejection fraction of 64% WBC: 9.2 - 12.5 - 11.9 D-dimer: 1.01 Potassium: 3.4 - 4.5 - 4.5 - 4.5 Creatinine: 0.71 - 0.72 - 0.65 - 0.76 BNP: 53.45 - 165.48 Troponin (high sensitive): <3 - <3 Chest x-ray revealed: IMPRESSION: 1. No evidence of acute disease. EKG reveals sinus rhythm with no specific ST-T changes Tele reveals sinus rhythm Patient is a 64-year-old female who presented with shortness of breaths/cough/leg edema and dyspnea on exertion. Did have some cough. He is found to have rhonchi in the lungs. Presentation is in favor of COPD exacerbation/URI. Acute heart failure is less likely. Does have acute respiratory failure. There is question about chronic respiratory failure because of long-term smoking. Component of acute on chronic D-CHF cannot be ruled out. Acute respiratory failure COPD exacerbation Questionable acute on chronic diastolic heart failure Tobacco dependence Morbid obesity Alcohol use/abuse History of pulmonary nodules Leg edema Cardiac suggestion for management: Manage on telemetry Gentle diuresis Follow-up electrolytes and kidney function tests and correct abnormalities. Keep potassium above 4 and Magnesium above 2 Oxygen supplementation Pulmonary consultation for COPD exacerbation and respiratory failure Avoid amlodipine which could have contributed to the leg edema Cardiac garcia, improved and stable Further evaluation and management depends on the above and clinical course A total of 55 minutes was spent reviewing the patient record, examining the patient, making a diagnostic and therapeutic plan, discussing this plan with medical personnel, following up on diagnostic studies and following the patient for clinical stability excluding any and all procedures. At least 50% of this time was spent in direct, [id number] contact. Thank you for allowing me to participate in this patient's care. Further recommendations will depend on patient's clinical course. Please do not hesitate to contact me if you have any questions or concerns. This medical document was created using electronic medical record system with [employer] dictation system. Although this document has been carefully reviewed, there may still be some phonetic and typographical errors. These areas are purely typographical due to the imperfection of the software programs, and do not reflect any compromise in the patient's medical care Dietary Evaluation Review Comments: 2GNA CCHO-60 diet Weight management upon D/C Expected Outcomes/Goals: controlled blood sugar gradual wt loss Plan discussed with: Patient, Other (nurse) SHEILA SANTOS MD Jan 30, 2025 06:03
[2025-01-30 07:33] LABS: Hematocrit 45.2 % (36.0-46.0); Hemoglobin 15.3 g/dL (12.2-16.2); Mean Corpuscular Hemoglobin 32.7 pg (28.0-32.0); Mean Corpuscular Volume 96.8 fL (80.0-100.0); Nucleated Red Blood Cells % 0.2 %
[2025-01-30 07:48] LABS: Alanine Aminotransferase 21 U/L (7-40); Albumin 4.5 g/dL (3.2-4.8); Alkaline Phosphatase 77 U/L (46-116); Anion Gap 9 (5-15); BUN/Creatinine Ratio 20.8 (10.0-20.0); Bilirubin, Total 0.7 mg/dL (0.2-1.0); Blood Urea Nitrogen 16 mg/dL (9-23); Calcium 9.4 mg/dL (8.7-10.4); Carbon Dioxide 32 mmol/L (20-31); Chloride 97 mmol/L (98-107); Glucose 124 mg/dL (74-106); Magnesium 2.6 mg/dL (1.6-2.6); Potassium 4.9 mmol/L (3.5-5.1); Sodium 138 mmol/L (136-145); Total Protein 6.5 g/dL (5.7-8.2)
[2025-01-30] MEDS ORDERED: DOXY50CA PO (13:27)
[2025-01-30] MEDS ORDERED: POTA-228 PO (13:27)
[2025-01-30] MEDS ORDERED: FURO1TAB31 PO (13:27)
--- NOTE | 2025-01-30 13:28 | DVHHP2 ---
Patient Family History: Cerebrovascular accident (CVA) G8 MOTHER Diabetes mellitus G8 MOTHER 19 CHILD G8 SISTER Allergies: Coded Allergies: NO KNOWN ALLERGIES (Unverified , 07/07/19) Home Meds Active Scripts Potassium Chloride (Potassium Chloride ER) 10 Meq Tab, 10 MEQ PO DAILY for 30 Days, #30 TAB Prov:MASSIMO ARROYO [employer]LECT[employer]ICAL CAD DESIGNER 01/30/25 Furosemide (Lasix) 40 Mg Tab, 40 MG PO BID for 30 Days, #60 TAB Prov:MASSIMO ARROYO [employer] DESIGNER 01/30/25 Doxycycline Hyclate (Doxycycline Hyclate) 50 Mg Cap, 1 CAP PO BID, #20 CAP Prov:MASSIMO ARROYO [employer]LECT[employer]ICAL CAD DESIGNER 01/30/25 Albuterol Sulfate (Albuterol Sulfate Hfa) 108 Mcg/Act Aer, 2 PUFF INH Q4-6HR PRN for 16 Days, #8.5 AER Prov:KISHAN LINDSEYP 11/14/24 Reported Medications Fluticasone Propionate (Nasal) (Fluticasone Propionate) 50 Mcg/Act Spr, 1 SPRAY EACHNOSTRI DAILY for 30 Days, #16 11/12/24 Aspirin (Aspir-81) 81 Mg Tab, 1 TAB PO DAILY, #30 TAB 5 Refills 11/11/24 Atorvastatin Calcium (ATORVASTATIN CALCIUM) 40 Mg Tab, 1 TAB PO DAILY, #30 TAB 5 Refills 11/11/24 Pantoprazole Sodium Sesquihydr (Protonix) 40 Mg Tab, 40 MG PO DAILY, #30 TAB 11/11/24 Metoprolol Succinate (Metoprolol Succinate Er) 25 Mg Tab, 25 MG PO DAILY for 30 Days, MG 11/11/24 Amlodipine Besylate (Amlodipine Besylate) 5 Mg Tab, 10 MG PO DAILY for 30 Days, MG 11/11/24 Losartan Potassium (Losartan Potassium) 50 Mg Tab, 1 TAB PO DAILY, #30 TAB 5 R efills 11/11/24 Discontinued Scripts Methylprednisolone (Medrol Dosepak) 4 Mg [place], 4 MG PO UD, #21 TAB UAD Prov:KISHAN LINDSEY 11/14/24 Furosemide (Lasix) 20 Mg Tb, 1 TAB PO DAILY for 30 Days, #30 TAB 1 Refill Prov:KISHAN LINDSEY 11/14/24 Levofloxacin Hemihydrate (LEVOFLOXACIN) 500 Mg Tab, 1 TAB PO DAILY, #7 TAB Prov:KISHAN LINDSEY [employer]IPPING SUPPORT 11/14/24 Vital Signs Vital Signs Date Time Temp Pulse Resp B/P (MAP) Pulse Ox O2 Delivery O2 Flow Rate FiO2 01/30/25 17:00 97.9 90 18 131/74 (93) 95 97.9 01/30/25 14:35 Nasal Cannula 3.0 01/30/25 14:35 32 SEPSIS Sepsis Screen Date sepsis recognized/suspect: Jan 25, 2025 Time Sepsis recognized/suspect: 905 Recent Procedure: No On Antibiotic Therapy: No Respiratory Rate >20: Yes Heart Rate >90: No Temp<36 C (96.8 F) or >38.3 C: No SBP <90 or MAP <65 mmHG: No New Acute Mental Status Change: No Is the patient on CPAP, BIPAP,: No Physician Orders Electrocardigram (01/25/25 09:19) Chest Portable (01/25/25 09:55) Admit (01/25/25 12:46) Oxygen By Nasal Cannula (01/25/25 12:46) *Consult / (01/25/25 12:56) * [facility] Laboratory Chief Consult (01/26/25 ) *Consult Dr. Do (01/26/25 16:22) Communication Order (01/28/25 06:40) Discharge (01/30/25 13:27) Vital Signs Date Time Temp Pulse Resp B/P (MAP) Pulse Ox O2 Delivery O2 Flow Rate FiO2 01/30/25 17:00 97.9 90 18 131/74 (93) 95 97.9 01/30/25 14:41 82 18 98 01/30/25 14:35 88 18 97 01/30/25 14:35 97 Nasal Cannula 3.0 01/30/25 14:35 97 Nasal Cannula* 3 32 01/30/25 14:14 97.7 85 18 93 01/30/25 14:07 85 133/40 01/30/25 12:40 97.7 85 18 133/74 (93) 93 97.7 01/30/25 12:23 124/72 01/30/25 12:21 124/72 01/30/25 11:13 82 17 100 01/30/25 11:07 96 Nasal Cannula 3.0 01/30/25 11:07 96 Nasal Cannula* 6 44 01/30/25 11:07 86 18 96 01/30/25 10:00 Nasal Cannula* 3 32 01/30/25 10:00 Nasal Cannula 3.0 01/30/25 08:40 97.6 92 19 124/72 (89) 91 97.6 01/30/25 08:00 Nasal Cannula* 3 32 01/30/25 08:00 85 01/30/25 07:01 80 19 97 01/30/25 06:55 90 Nasal Cannula 3.0 01/30/25 06:55 83 17 90 01/30/25 06:55 90 Nasal Cannula* 3 32 01/30/25 05:00 98.5 82 17 119/67 (84) 100 98.5 01/29/25 22:53 83 20 100 01/29/25 22:45 98 Nasal Cannula* 3 32 01/29/25 22:45 93 18 98 01/29/25 22:45 98 Nasal Cannula 3.0 01/29/25 22:28 133/74 01/29/25 21:00 97.7 103 18 133/74 (93) 96 97.7 01/29/25 20:00 89 Nasal Cannula* 3 32 01/29/25 20:00 88 01/29/25 19:00 83 20 98 01/29/25 18:54 92 Nasal Cannula 3.0 01/29/25 18:54 82 20 92 01/29/25 18:54 92 Nasal Cannula* 3 32 01/29/25 16:59 98.0 81 18 130/52 (78) 100 98.0 01/29/25 14:25 90 16 100 01/29/25 14:19 98 Nasal Cannula 3.0 01/29/25 14:19 98 Nasal Cannula* 3 32 01/29/25 14:19 89 16 98 01/29/25 12:46 97.7 85 18 130/58 (82) 92 97.7 01/29/25 10:20 89 16 100 01/29/25 10:14 95 Nasal Cannula* 3 32 01/29/25 10:14 95 Nasal Cannula 3.0 01/29/25 10:14 82 14 95 01/29/25 10:14 79 112/58 01/29/25 10:14 112/58 01/29/25 10:13 112/58 01/29/25 09:30 97.6 79 18 112/58 (76) 91 97.6 01/29/25 08:00 70 01/29/25 07:50 89 Nasal Cannula* 3 32 01/29/25 07:45 77 12 94 01/29/25 07:37 92 Nasal Cannula 3.0 01/29/25 07:37 92 Nasal Cannula* 3 32 01/29/25 07:37 87 12 92 01/29/25 04:55 97.8 79 19 117/65 (82) 100 97.8 01/29/25 00:53 98.7 95 17 124/64 (84) 100 98.7 01/28/25 23:59 130/65 01/28/25 23:15 81 18 98 01/28/25 23:05 84 16 95 01/28/25 23:05 95 Nasal Cannula 3.0 01/28/25 23:05 95 Nasal Cannula* 3 32 01/28/25 21:00 97.6 61 20 130/65 (86) 97 97.6 01/28/25 20:00 86 01/28/25 20:00 87 95 Nasal Cannula* 3 32 01/28/25 18:58 77 18 98 01/28/25 18:48 92 Nasal Cannula 3.0 01/28/25 18:48 76 18 92 01/28/25 18:48 92 Nasal Cannula* 3 32 01/28/25 16:27 98.3 76 17 122/80 (94) 93 98.3 01/28/25 14:07 85 18 100 01/28/25 13:57 87 18 96 01/28/25 13:00 97.7 92 19 133/66 (88) 96 97.7 01/28/25 11:21 86 16 123/71 98 3.0 32 01/28/25 10:00 95 Nasal Cannula 3.0 01/28/25 10:00 95 Nasal Cannula* 3 32 01/28/25 10:00 86 16 98 01/28/25 09:50 89 16 95 01/28/25 09:45 84 123/71 01/28/25 09:45 123/71 01/28/25 09:43 123/71 01/28/25 08:58 99.0 87 19 131/63 (85) 95 99.0 01/28/25 08:20 87 95 Nasal Cannula* 3 32 01/28/25 08:00 81 Laboratory Tests Test 01/25/25 10:37 01/26/25 06:38 01/28/25 08:47 01/30/25 07:08 White Blood Count 9.2 10^3/uL (4.4-10.8) 12.5 10^3/uL (4.4-10.8) #H 11.9 10^3/uL (4.4-10.8) H 11.6 10^3/uL (4.4-10.8) H Results Labs Test 01/30/25 07:08 01/27/25 06:03 01/25/25 23:35 01/25/25 14:28 Range/Units White Blood Count 11.6 H 4.4-10.8 10^3/uL Red Blood Count 4.66 4.0-5.20 10^6/uL Hemoglobin 15.3 12.2-16.2 g/dL Hematocrit 45.2 36.0-46.0 % Mean Corpuscular Volume 96.8 80.0-100.0 fL Mean Corpuscular Hemoglobin 32.7 H 28.0-32.0 pg Mean Corpuscular Hemoglobin Concent 33.8 32.0-36.0 g/dL Red Cell Distribution Width 15.4 H 11.8-14.3 % Platelet Count 318 140-450 10^3/uL Mean Platelet Volume 7.0 6.9-10.8 fL Neutrophils (%) (Auto) 81.3 H 37.0-80.0 % Lymphocytes (%) (Auto) 7.7 L 10.0-50.0 % Monocytes (%) (Auto) 10.8 0.0-12.0 % Eosinophils (%) (Auto) 0.1 0.0-7.0 % Basophils (%) (Auto) 0.1 0.0-2.0 % Neutrophils # (Auto) 9.5 H 1.6-8.6 10 ^3/uL Lymphocytes # (Auto) 0.9 0.4-5.4 10 ^3/uL Monocytes # (Auto) 1.3 0-1.3 10 ^3/uL Eosinophils # (Auto) 0 0-0.8 10 ^3/uL Basophils # (Auto) 0 0-0.2 10 ^3/uL Nucleated Red Blood Cells 0.2 % Sodium Level 138 136-145 mmol/L Potassium Level 4.9 3.5-5.1 mmol/L Chloride Level 97 L 98-107 mmol/L Carbon Dioxide Level 32 H 20-31 mmol/L Anion Gap 9 5-15 Blood Urea Nitrogen 16 9-23 mg/dL Creatinine 0.77 0.550-1.02 mg/dL Glomerular Filtration Rate Calc 85 >90 mL/min BUN/Creatinine Ratio 20.8 H 10.0-20.0 Serum Glucose 124 H 74-106 mg/dL Calcium Level 9.4 8.7-10.4 mg/dL Phosphorus Level 3.8 2.4-5.1 mg/dL Magnesium Level 2.6 1.6-2.6 mg/dL Total Bilirubin 0.7 0.2-1.0 mg/dL Aspartate Amino Transferase (AST) 18 13-40 U/L Alanine Aminotransferase (ALT) 21 7-40 U/L Alkaline Phosphatase 77 46-116 U/L Total Protein 6.5 5.7-8.2 g/dL Albumin 4.5 3.2-4.8 g/dL B-Type Natriuretic Peptide 165.48 0-100 pg/mL Urine Color Yellow Yellow Urine Clarity Clear Clear Urine pH 6.0 5.0-9.0 Urine Specific [place] 1.020 1.001-1.035 Urine Protein Negative Negative Urine Ketones 1+ H Negative Urine Blood Negative Negative /uL Urine Nitrite Negative Negative Urine Bilirubin Negative Negative Urine Urobilinogen Normal Negative mg/dL Urine Leukocyte Esterase Negative Negative /uL Urine RBC 1 0 - 4 /hpf Urine Microscopic WBC 1 0-5 /HPF Urine Squamous Epithelial Cells Few <5 /hpf Urine Bacteria None seen None Seen /hpf Urine Glucose 4+ H Normal mg/dL Influenza Type A Antigen Negative Negative Influenza Type B Antigen Negative Negative SARS-CoV-2 Antigen (Rapid) Negative NEGATIVE Test 01/25/25 12:10 01/25/25 10:37 Range/Units Troponin I High Sensitivity < 3 L </=34 ng/L D-Dimer, Quantitative 1.01 H 0.0-0.49 mg/L MASSIMO COLON NP Jan 30, 2025 13:28
--- NOTE | 2025-01-30 21:01 | DVHDS2 ---
Discharge Summary Date of Admission Jan 25, 2025 at 12:46 Date of Discharge: Jan 30, 2025 Labs/Diagnostic Data: Laboratory Results Test 01/30/25 07:08 01/27/25 06:03 01/25/25 23:35 01/25/25 14:28 White Blood Count 11.6 10^3/uL (4.4-10.8) Red Blood Count 4.66 10^6/uL (4.0-5.20) Hemoglobin 15.3 g/dL (12.2-16.2) Hematocrit 45.2 % (36.0-46.0) Mean Corpuscular Volume 96.8 fL (80.0-100.0) Mean Corpuscular Hemoglobin 32.7 pg (28.0-32.0) Mean Corpuscular Hemoglobin Concent 33.8 g/dL (32.0-36.0) Red Cell Distribution Width 15.4 % (11.8-14.3) Platelet Count 318 10^3/uL (140-450) Mean Platelet Volume 7.0 fL (6.9-10.8) Neutrophils (%) (Auto) 81.3 % (37.0-80.0) Lymphocytes (%) (Auto) 7.7 % (10.0-50.0) Monocytes (%) (Auto) 10.8 % (0.0-12.0) Eosinophils (%) (Auto) 0.1 % (0.0-7.0) Basophils (%) (Auto) 0.1 % (0.0-2.0) Neutrophils # (Auto) 9.5 10 ^3/uL (1.6-8.6) Lymphocytes # (Auto) 0.9 10 ^3/uL (0.4-5.4) Monocytes # (Auto) 1.3 10 ^3/uL (0-1.3) Eosinophils # (Auto) 0 10 ^3/uL (0-0.8) Basophils # (Auto) 0 10 ^3/uL (0-0.2) Nucleated Red Blood Cells 0.2 % Sodium Level 138 mmol/L (136-145) Potassium Level 4.9 mmol/L (3.5-5.1) Chloride Level 97 mmol/L (98-107) Carbon Dioxide Level 32 mmol/L (20-31) Anion Gap 9 (5-15) Blood Urea Nitrogen 16 mg/dL (9-23) Creatinine 0.77 mg/dL (0.550-1.02) Glomerular Filtration Rate Calc 85 mL/min (>90) BUN/Creatinine Ratio 20.8 (10.0-20.0) Serum Glucose 124 mg/dL (74-106) Calcium Level 9.4 mg/dL (8.7-10.4) Phosphorus Level 3.8 mg/dL (2.4-5.1) Magnesium Level 2.6 mg/dL (1.6-2.6) Total Bilirubin 0.7 mg/dL (0.2-1.0) Aspartate Amino Transferase (AST) 18 U/L (13-40) Alanine Aminotransferase (ALT) 21 U/L (7-40) Alkaline Phosphatase 77 U/L (46-116) Total Protein 6.5 g/dL (5.7-8.2) Albumin 4.5 g/dL (3.2-4.8) B-Type Natriuretic Peptide 165.48 pg/mL (0-100) Urine Color Yellow (Yellow) Urine Clarity Clear (Clear) Urine pH 6.0 (5.0-9.0) Urine Specific [place] 1.020 (1.001-1.035) Urine Protein Negative (Negative) Urine Ketones 1+ (Negative) Urine Blood Negative /uL (Negative) Urine Nitrite Negative (Negative) Urine Bilirubin Negative (Negative) Urine Urobilinogen Normal mg/dL (Negative) Urine Leukocyte Esterase Negative /uL (Negative) Urine RBC 1 /hpf (0 - 4) Urine Microscopic WBC 1 /HPF (0-5) Urine Squamous Epithelial Cells Few /hpf (<5) Urine Bacteria None seen /hpf (None Seen) Urine Glucose 4+ mg/dL (Normal) Influenza Type A Antigen Negative (Negative) Influenza Type B Antigen Negative (Negative) SARS-CoV-2 Antigen (Rapid) Negative (NEGATIVE) Test 01/25/25 12:10 01/25/25 10:37 Troponin I High Sensitivity < 3 ng/L (</=34) D-Dimer, Quantitative 1.01 mg/L FEU (0.0-0.49) Other Laboratory Tests 01/30/25 07:08 Brief Hx & Hospital Course: 64-year-old female with a history of COPD hypertension hyperlipidemia on 3.5 L home O2 presents to emergency room for shortness of breath. Patient reports associated productive cough with a sore throat. Patient denies any chest pain fever chills. Patient does report having some lower extremity swelling and she does take amlodipine. Patient was admitted on January 25, 2025, for COPD exacerbation and diastolic heart failure. She was evaluated by both Cardiology and Pulmonary and was started on IV diuretics. Patient had bilateral lower extremity edema, which improved over several days. Patient was discharged home on antibiotics for cellulitis of the lower extremities and for COPD exacerbation. Her Lasix dose was increased from 20 mg to 40 mg twice daily, and she was also prescribed low- dose potassium. She was instructed to follow up with her PCP in 1 week and with Cardiology in 2 weeks. There were no complaints or new complaints upon discharge, all questions and concerns were answered. Patient was advised to return to the ER or call 911 if any headaches, dizziness, shortness of breath, chest pain, bleeding, fevers, or worsening of medical condition. Patient/Family was counseled about treatment plan, medications, possible side effects, patientverbalized understanding. All questions were answered to the best of my ability. The patient symptoms improved and they are okay to be DC. Condition at Discharge: Stable Final Diagnosis/Problems List Acute hypoxemic respiratory failure due to COPD exacerbation Hypertension Gastroesophageal reflux disease (GERD) Hypokalemia Hyperlipidemia Discharge Disposition: Home Discharge Instruct/Medications Diet: Cardiac 2g Na,low cholest Activity: No Restrictions, As Tolerated Follow Up/Referral: pcp 1 week Scheduled Albuterol Sulfate (Albuterol Sulfate Hfa), 2 PUFF INH Q4-6HR PRN Amlodipine Besylate (Amlodipine Besylate), 10 MG PO DAILY, (Reported) Aspirin (Aspir-81), 1 TAB PO DAILY, (Reported) Atorvastatin Calcium (Atorvastatin Calcium), 1 TAB PO DAILY, (Reported) Doxycycline Hyclate (Doxycycline Hyclate), 1 CAP PO BID Fluticasone Propionate (Nasal) (Fluticasone Propionate), 1 SPRAY EACHNOSTRI DAILY, (Reported) Furosemide (Lasix), 40 MG PO BID Losartan Potassium (Losartan Potassium), 1 TAB PO DAILY, (Reported) Metoprolol Succinate (Metoprolol Succinate Er), 25 MG PO DAILY, (Reported) Pantoprazole Sodium Sesquihydr (Protonix), 40 MG PO DAILY, (Reported) Potassium Chloride (Potassium Chloride ER), 10 MEQ PO DAILY Discontinued Medications Furosemide (Lasix), 1 TAB PO DAILY Levofloxacin Hemihydrate (Levofloxacin), 1 TAB PO DAILY Methylprednisolone (Medrol Dosepak), 4 MG PO UD Discharge Statement: "Patient was advised to return to the ER or call 911 if any headaches, dizziness, shortness of breath, chest pain, abdominal pain, bleeding, fevers, or worsening of medical condition. Patient was counseled about treatment plan, medications, possible side effects, patientverbalized understanding. All questions were answered to the best of my ability. This discharge took greater then 30 minutes in planning, reviewing documentation, counseling the patient, and discussing with other team members." ASSESSMENT ASSESSMENT Assessment COPD MASSIMO ARROYO NP Jan 30, 2025 21:01
--- NOTE | 2025-01-30 23:55 | DVHPN2 ---
Progress Note - Dictate Date Seen: Jan 30, 2025 Medical Necessity Reason Pt with a Central, PICC or Fol: No Subjective Patient seen and examined at bedside. Remains on supplemental oxygen Overnight events reviewed. vital signs Vital Sign Date Time Temp Pulse Resp B/P (MAP) Pulse Ox O2 Delivery O2 Flow Rate FiO2 01/30/25 17:00 97.9 90 18 131/74 (93) 95 97.9 01/30/25 14:35 Nasal Cannula 3.0 01/30/25 14:35 32 Total Intake and Output 01/29/25 01/29/25 01/30/25 15:00 23:00 07:00 Intake Total 300 ml 1040 ml 0 ml Balance 300 ml 1040 ml 0 ml objective Gen.: Patient lying in bed in no apparent distress. On supplemental oxygen. Head: Normocephalic, atraumatic. Eyes: EOMI/PERRLA. Ears: Normal hearing. Normal anatomy. Neck/trachea: Trachea midline, supple. Nose: Normal external anatomy. Mouth: Moist mucous membranes. Chest: Decreased air entry bilaterally. No wheezing or rhonchi. Cardiovascular: Positive S1, positive S2. Regular rate and rhythm. Abdomen: Positive bowel sounds in all 4 quadrants. Soft, non-tender, non- distended. : Deferred. Rectal: Deferred. Skin: Warm, dry. Intact. Extremities: 2+ radial pulses bilaterally. No lower extremity edema. Neuro: Awake, alert, oriented x3. No gross motor or sensory deficits. Cranial nerves II through XII intact. Gait not assessed. laboratory and microbiology Laboratory Tests 01/30/25 07:08 Test 01/30/25 07:08 Range/Units Serum Glucose 124 H 74-106 mg/dL Assessment/Plan Impression: Acute hypoxemic respiratory failure Dependence on supplemental oxygen Acute COPD exacerbation Atelectasis Dyspnea Events: Patient seen and examined at bedside. Improved oxygen requirements Currently on 6 LPM -->3 LPM NC Continue to taper O2 as tolerated. No acute events Continue antibiotics Bronchodilators/Pulmicort. IV steroids Diurese with Lasix as tolerated Monitor renal function Monitor electrolytes Supplement as needed Protonix for GI ppx Labs and imaging reviewed Plan: Supplemental oxygen Titrate to maintain sats 90% or above Incentive spirometry Continue antibiotics F/u cultures Bronchodilators Steroids for COPD management Monitor renal function Monitor electrolytes Supplement as needed GI/DVT prophylaxis Prognosis: Guarded given patient's multiple co-morbidities. Rest of plan per hospitalist and other consultants. Thank you, ALEJANDRA Gomez, for allowing me to participate in this patient's care. Further recommendations will depend on the patient's clinical course. Please do not hesitate to contact me if you have any questions or concerns. This medical document was created using an electronic medical record system with [employer] dictation system. Although these documentations are being carefully reviewed, there may still be some phonetic and typographical changes. The errors are purely typographical, due to imperfection on the software program, and do not reflect any compromise in the patient's medical care. Dietary Evaluation Review Comments: 2GNA CCHO-60 diet Weight management upon D/C Expected Outcomes/Goals: controlled blood sugar gradual wt loss Plan discussed with: Patient, Other (REENA Gibson) GERALDO CLEMONS MD Jan 30, 2025 23:55
--- NOTE | 2025-01-31 23:50 | DVHPN2 ---
Progress Note - Dictate Date Seen: Jan 31, 2025 Medical Necessity Reason Pt with a Central, PICC or Fol: No Subjective Patient seen and examined at bedside. Remains on supplemental oxygen Overnight events reviewed. vital signs Vital Sign Date Time Temp Pulse Resp B/P (MAP) Pulse Ox O2 Delivery O2 Flow Rate FiO2 01/30/25 17:00 97.9 90 18 131/74 (93) 95 97.9 01/30/25 14:35 Nasal Cannula 3.0 01/30/25 14:35 32 Total Intake and Output 01/30/25 01/30/25 01/31/25 15:00 23:00 07:00 Intake Total 526 ml 490 ml Output Total 850 ml Balance 526 ml -360 ml objective Gen.: Patient lying in bed in no apparent distress. On supplemental oxygen. Head: Normocephalic, atraumatic. Eyes: EOMI/PERRLA. Ears: Normal hearing. Normal anatomy. Neck/trachea: Trachea midline, supple. Nose: Normal external anatomy. Mouth: Moist mucous membranes. Chest: Decreased air entry bilaterally. No wheezing or rhonchi. Cardiovascular: Positive S1, positive S2. Regular rate and rhythm. Abdomen: Positive bowel sounds in all 4 quadrants. Soft, non-tender, non- distended. : Deferred. Rectal: Deferred. Skin: Warm, dry. Intact. Extremities: 2+ radial pulses bilaterally. No lower extremity edema. Neuro: Awake, alert, oriented x3. No gross motor or sensory deficits. Cranial nerves II through XII intact. Gait not assessed. laboratory and microbiology Laboratory Tests 01/30/25 07:08 Test 01/30/25 07:08 Range/Units Serum Glucose 124 H 74-106 mg/dL Assessment/Plan Impression: Acute hypoxemic respiratory failure Dependence on supplemental oxygen Acute COPD exacerbation Atelectasis Dyspnea Events: Patient seen and examined at bedside. Improved oxygen requirements Remains on 3 LPM NC Continue to taper O2 as tolerated. No acute events Continue antibiotics Bronchodilators/Pulmicort. IV steroids Reglan for nausea. Protonix for GI ppx Labs and imaging reviewed Plan: Supplemental oxygen Titrate to maintain sats 90% or above Incentive spirometry Continue antibiotics F/u cultures Bronchodilators Steroids for COPD management Monitor renal function Monitor electrolytes Supplement as needed Maintain euvolemia GI/DVT prophylaxis Prognosis: Guarded given patient's multiple co-morbidities. Rest of plan per hospitalist and other consultants. Thank you, ALEJANDRA Gomez, for allowing me to participate in this patient's care. Further recommendations will depend on the patient's clinical course. Please do not hesitate to contact me if you have any questions or concerns. This medical document was created using an electronic medical record system with [employer] dictation system. Although these documentations are being carefully reviewed, there may still be some phonetic and typographical changes. The errors are purely typographical, due to imperfection on the software program, and do not reflect any compromise in the patient's medical care. Dietary Evaluation Review Comments: 2GNA CCHO-60 diet Weight management upon D/C Expected Outcomes/Goals: controlled blood sugar gradual wt loss Plan discussed with: Patient, Other (REENA Andersen) GERALDO CLEMONS MD Jan 31, 2025 23:50
== END 2025-01-30 15:00 | disposition home or self-care (01) | DRG 291 ==
LOC: ER 09:06 → OVERFLOW 12:46 → TELE-EAST 18:15
PROVIDERS: ADMIT Nurse Practitioner; ATTEND Nurse Practitioner
DX: I11.0 Hypertensive heart disease with heart failure (principal); I50.33 Acute on chronic diastolic (congestive) heart failure; J96.21 Acute and chronic respiratory failure with hypoxia; J44.1 Chronic obstructive pulmonary disease with (acute) exacerbation; L03.116 Cellulitis of left lower limb; L03.115 Cellulitis of right lower limb; Z20.822 Contact with and (suspected) exposure to COVID-19; K21.9 Gastro-esophageal reflux disease without esophagitis; E78.5 Hyperlipidemia, unspecified; E87.6 Hypokalemia; F17.210 Nicotine dependence, cigarettes, uncomplicated; E66.01 Morbid (severe) obesity due to excess calories; J06.9 Acute upper respiratory infection, unspecified; Z82.3 Family history of stroke; Z83.3 Family history of diabetes mellitus; Z90.49 Acquired absence of other specified parts of digestive tract; Z98.51 Tubal ligation status; Z79.899 Other long term (current) drug therapy; Z99.81 Dependence on supplemental oxygen; Z79.82 Long term (current) use of aspirin; Z68.35 Body mass index [BMI] 35.0-35.9, adult
CPT/HCPCS: 36415; 71045; 80048; 80053; 81001; 83735; 83880; 84100; 84484; 85025; 85379; 87426; 87804; 93005; 94640; 96365; 96375; 99291; G0378